=== PATIENT | male | born 1960 | race Caucasian/White ===

== ENCOUNTER → 2020-03-30 16:15 | Outpatient (CLI) | payer OTHER, SELFPAY ==
--- NOTE | 2020-03-30 16:22 | MRI_ITS ---
HISTORY: left rotator cuff tear, fall on left arm EXAMINATION: MR Shoulder W/O Contrast TECHNIQUE: Multiplanar and multisequence MR images of the left shoulder. IV Contrast dosage and agent: None. COMPARISON: None FINDINGS: BONE: Minimal marrow edema is present within the lateral aspect of the clavicle and the acromion at the acromioclavicular joint ACROMIOCLAVICULAR JOINT: Is mildly arthritic with spurring and edema SUBACROMIAL-SUBDELTOID SPACE: Minimal thin strip of fluid superficial to the rotator cuff extending into the subacromial space GLENOHUMERAL JOINT: Articular cartilage intact. Small joint effusion ROTATOR CUFF: There is perhaps some muscular tearing at the myotendinous junction of the subscapularis. There is no cuff muscle atrophy. LABRUM: Intact, limited evaluation on non-arthrographic exam. BICEPS TENDON: The long head of the biceps tendon is subluxed medially out of of the bicipital groove with loss of normal dark signal within the subscapularis the intra-articular portion of the long head of the biceps tendon is slightly edematous and thickened OTHER SOFT TISSUES: Fluid surrounds the long head of the biceps tendon in the bicipital groove where it returns to normal dark signal but is thickening possibly with a longitudinal split tear MRI/Upper Ext Joint Only(Routine) IMPRESSION: Subscapularis tearing. I'm not sure if this is a full-thickness or incomplete thickness tearing. It is not a complete tear. There is a shoulder effusion as well as fluid within the subacromial/subdeltoid bursa suggesting possible bursitis. Tendinosis to the long head of the biceps tendon with possible longitudinal split tear to the biceps tendon. at 3433 Reported and signed by: Ruddy Hartman MD Electronically Signed: Ruddy Hartman MD at 23:11 EDT Tel , Service support ,
--- NOTE | 2020-03-30 16:22 | MRI_ITS ---
HISTORY: rotator cuff tear right shoulder X 2 months EXAMINATION: MR Shoulder W/O Contrast TECHNIQUE: Multiplanar and multisequence MR images of the right shoulder. IV Contrast dosage and agent: None. COMPARISON: None. 133 images FINDINGS: BONE: Some edema is present within the lateral aspect of the right clavicle ACROMIOCLAVICULAR JOINT: Arthritic with hyperostosis and a trace amount of fluid SUBACROMIAL-SUBDELTOID SPACE: No bursal fluid. GLENOHUMERAL JOINT: Articular cartilage intact. No joint effusion. No rotator interval edema. ROTATOR CUFF: A tiny undersurface rim rent tear is present at the insertion of the anterior portion of the infraspinatus and another area there is a tiny undersurface incomplete thickness tear at the pedicle of the supraspinatus There is no cuff muscle atrophy. LABRUM: Intact, limited evaluation on non-arthrographic exam. BICEPS TENDON: The extra-articular biceps tendon is in the bicipital groove. The intra-articular biceps tendon is normal. OTHER SOFT TISSUES: Unremarkable. MRI/Upper Ext Joint Only(Routine) IMPRESSION: Acromioclavicular arthritis. Minimal tiny undersurface incomplete rim rent tears at the insertion of the supraspinatus and the infraspinatus. at 2205 Reported and signed by: Ruddy Hartman MD Electronically Signed: Ruddy Hartman MD at 22:04 EDT Tel , Service support ,
--- NOTE | 2020-03-30 16:58 | RAD_ITS ---
STUDY: X-RAY - ORBITS REASON FOR EXAM: Male, 59 years old. PRE MRI, HX OF METAL TO EYES TECHNIQUE: 2 view(s) of the orbits were obtained. COMPARISON: None. FINDINGS: Normal bilateral orbits without a metallic orbital foreign body. Normal visualized facial bones. Normal paranasal sinuses. The soft tissue structures are unremarkable. RAD/Orbits for Foreign Body IMPRESSION: No demonstrated metallic orbital foreign body. The patient is cleared for an MRI examination. Electronically Signed: Gilberto Velasquez MD at 17:13 EDT , Service support ,
== END ==
PROVIDERS: PCP Preventive Medicine Occupational Medicine; Referring Provider Chiropractor; Visit Provider Chiropractor
DX: M75.121 Complete rotator cuff tear or rupture of right shoulder, not specified as traumatic (principal); M75.122 Complete rotator cuff tear or rupture of left shoulder, not specified as traumatic
CPT/HCPCS: 70030; 73221

== ENCOUNTER 2020-08-29 16:00 | Outpatient (RCR) | payer OTHER, SELFPAY ==
--- NOTE | 2020-07-26 08:29 | HP.PTEVAL_ITS ---
Patient's Visit Information PERNELL CARDOZA is a 60 year old M referred to Physical Therapy by SAMSON JOHANSEN with a diagnosis of Chronic pain of B shoulders, shoulder weakness, suprascapular mononeuropath. Date of Evaluation: 07/25/20 Physical Therapist: Eloy Dimas, PT, Cert MDT, OCS - Visit Plan Frequency: 2x /Week Duration: 4 Weeks Plan: 2xs/week for 4 weeks. PT Intervention: B UE strengthening, Rotator cuff strengthening, periscapular strengthening, UE, AROM,postural ex'sand Modalities. - Subjective Patient 60 y/o male presents to physical therapy with bilateral shoulder pain . 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 Location of right [place] . When patient seen DR mata pinmikhail from ENG test affecting muscle. Patient has shoulder revealed RTC tear left but right shoulder was negative for tear. Possible RTC repair left shoulder. Patient has difficulty lifting [place] and impairs ADL's and housework tasks. Patient has some difficulty sleeping at night. Patient biltateral shoulder pain impairs function and housework tasks and jiob demnads. Patient symptoms affects QOL. No meds. VOCATION:[employer]. SOCIAL: - Pain Right Shoulder Pain Intensity (Out of 10): 3 Pain Intensity Range: 10 Left Shoulder Pain Intensity (Out of 10): 5 Comment: lifting - Objective POSTURE: mild foward posture rounded shoulder, mild thoracic kyphosis. PALPTION: Unremarkable on B shoulders. CERVICAL SPINE SCREEN: WNL, COMPRESSION/DISTRACTION NEGATIVE. OBSERVATION: Posterior delt and infraspinatus demonstrate mild atrophy. AROM: L flexion 140 degrees, abd 150 degrees, ER 85 degrees, IR L4. R flexion/abd severe compensation 60-70 degrees. PROM: WFL on affected side Right. REFLEXES: R C5 2/3, C6 3/3. L C5 2/3, C6 3/3. MMT: L subscap 4/5, infraspinatus 4/5, supraspinatus 4/5, deltoid 4-/5. R subscapularis 3-/5, supraspinatus 3-/5, infraspinatus 3-/5, bicep 3+/5, wrist flexors 4-/5, wrist ext 4/5. 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 # - Special Tests C/S Radiculapathy - Left Upper limb tension test: Negative C/S Radiculapathy - Right Upper limb tension test: Negative C/S Radiculapathy - Left Spurlings: Negative C/S Radiculapathy - Right Spurlings: Negative C/S Radiculapathy - Left Cervical distraction: Negative C/S Radiculapathy - Right Cervical distraction: Negative C/S Radiculapathy - Left Relief test: Negative C/S Radiculapathy - Right Relief test: Negative C/S Radiculapathy - Valsalva: Negative - Goals Goal 1:: Patient will demonstrate improved L UE strength to 4+/5 for improved functional strength and work related tasks. Goal Time Frame: 4-6 Weeks Goal 2:: Patient will demonstrate R shoulder flexion/abd to 100 degrees for improved functional mobility. Goal Time Frame: 4-6 Weeks Goal 3:: Patient will demonstrate independence with HEP. Goal Time Frame: 4-6 Weeks Goal 4:: Patient will demonstrate improved Quick Dash score by 5 or > points for improved QOL. Goal Time Frame: 4-6 Weeks Goal 5:: Patient will demonstrate improved R UE strength to 3+/5 for improved functional strength and work related tasks. Goal Time Frame: 4-6 Weeks - Rehabilitation Potential Physical Therapy Diagnosis: Patient is a 60 year old male presenting to the [facility] with bilateral shoulder pain, bilateral UE weakness, and limited AROM with severe compensation on R with possible brachial plexus ,and RTC weakness left. Patient has MRI showed RTC tear left ,right negative but ENG showed nerve invovlement with suprascapular nerve. Rehabilitation Potential: Fair - Anticipated Interventions Patient/Client Instruction: Educate patient on: Condition, Plan of Care For the Purpose of:: To decrease pain, To increase ROM, To improve muscle performance and motor function, To improve ability to perform ADL's, To increase tolerance to activity/condition/position, To improve performance and independence with ADL's, To improve ability of physical actions for home/community/work/leisure, To improve health of tissue, To decrease soft tissue restriction, To increase flexibility/ROM, To reduce risk of recurrence, To improve ability to perform tasks related to life management Therapeutic Exercise to Include: Strength training, Postural training, Flexibilty training, Active ROM, Scapular Strength/Stabilization Comment: RTC For the Purpose of:: To decrease pain, To increase ROM, To improve muscle performance and motor function, To improve ability to perform ADL's, To increase tolerance to activity/condition/position, To improve performance and independence with ADL's, To improve ability of physical actions for home/community/work/leisure, To improve health of tissue, To decrease soft tissue restriction, To increase flexibility/ROM, To assume or resume ADL's, To reduce risk of recurrence, To improve ability to perform tasks related to life management TENS: Yes IF ES: Yes Cryotherapy (ice pack, ice massage): Yes Thermo therapy (hot pack): Yes Ultrasound (thermal/non thermal): Yes For the Purpose of:: To decrease pain, To increase ROM, To improve health of tissue, To decrease soft tissue restriction Thank you for the opportunity to evaluate your patient. For Medicare and Medicare HMO plans, please review the plan of care and approve it. It will need to be FAXED BACK to us at [phone] for Medicare purposes. For Medicare only, by signing this I certify the plan of care. Please let me know if there are questions or concerns regarding this plan of care. Physician Signature: Date:
--- NOTE | 2021-01-11 11:56 | HP.PTDCSUM ---
It has been my pleasure to treat PERNELL CARDOZA referred by SAMSON JOHANSEN, with the diagnosis of Chronic pain of B shoulders, shoulder weakness, suprascapular mononeuropath for a total of 6 visit(s). Discharge Date: 08/29/20 Please see the following information for a summary of their discharge status. Subjective: Patient reports that he is doing well. Patient expresses he wants to make today his last day and work on his HEP independently. Right Shoulder Pain Intensity (Out of 10): 0 Left Shoulder Pain Intensity (Out of 10): 0 % Improvement: 65 Objective/Function: Patient tolerated all exercise this date with no increases in shoulder pain. Requires minimal cueing to ensure correct form and repetitions. Reports appropriate fatigue levels with each exercise. Demonstrated moderate difficulty with shoulder ADD on L. Updated HEP. R shoulder flexion 110 degrees, abd 100 degrees. L shoulder flexion 135, 130 degrees abd. UE MMT: L shoulder flexion 5/5, abd 4/5, biceps 5/5, elbow ext 5/5, IR 4+/5, ER 4+/5. R shoulder 5/5, abd 4/5, biceps 5/5, elbow ext 5/5, IR 4/5, ER 3+/5 Goal 1:: Patient will demonstrate improved L UE strength to 4+/5 for improved functional strength and work related tasks. Goal Progress: Progressing Goal 2:: Patient will demonstrate R shoulder flexion/abd to 100 degrees for improved functional mobility. Goal Progress: Progressing Goal 3:: Patient will demonstrate independence with HEP. Goal Progress: Goal Met Goal 4:: Patient will demonstrate improved Quick Dash score by 5 or > points for improved QOL. Goal Progress: Progressing Goal 5:: Patient will demonstrate improved R UE strength to 3+/5 for improved functional strength and work related tasks. Goal Progress: Progressing Plan: D/C to HEP. Discharge Comments: D/C to HEP. Patient demonstrates improvements with B shoulder AROM and UE MMT. If there are questions or concerns regarding this patient's physical therapy, please feel free to call me at [phone]. Thank you for the referral of this patient. Sincerely, Eloy Dimas, PT, Cert MDT, OCS
== END 2020-08-29 19:00 | disposition home or self-care (01) ==
LOC: PT 16:00
PROVIDERS: PCP Preventive Medicine Occupational Medicine
DX: G56.81 Other specified mononeuropathies of right upper limb (principal); M25.511 Pain in right shoulder; M25.512 Pain in left shoulder; G89.29 Other chronic pain
CPT/HCPCS: 97110; 97162

== ENCOUNTER → 2020-10-17 12:54 | Outpatient (CLI) | payer OTHER, SELFPAY ==
--- NOTE | 2020-10-17 14:23 | SP.MBSS_ITS ---
Modified Barium Swallow - Patient Information Study Date: 10/17/20 Study Time: 13:00 Direct Billable Minutes: 130 Total Minutes procedure & reportin Diagnosis: dysphagia Referring Physician: Duc Perea Reason for Referral: Dysphagia - intermittent difficulty swallowing solids per physician referral. Patient describes sensation of solids not going down / getting stuck right at the valve and points a few inches below the sternal notch to indicate location. Reports that this happens approximately 1x/month w/ most recent instance resulting in emesis. Medical History: bilateral shoulder pain; Patient denies hx of head/neck surgery, neurological dx, allergies, GERD, PNA w/in past 5 years Dentition: Natural Teeth Mental Status: WNL Respiratory Status: Oxygenating on Room Air - Penetration-Aspiration Scale Penetration-Aspiration Scale: OBJECTIVE ASSESSMENT OF SWALLOW FUNCTION (QUANTITATIVE ? PER TRIAL): PENETRATION / ASPIRATION SCALE (CHOUDHURY): 1 = does not enter airway 2 = enters airway/above vocal folds/ejected 3 = enters airway/above vocal folds/not ejected 4 = enters airway/contacts vocal folds/ejected 5 = enters airway/contacts vocal folds/not ejected 6 = enters airway/below vocal folds/ejected 7 = enters airway/below vocal folds/not ejected despite effort 8 = enters airway/below vocal folds/no effort - Penetration-Aspiration Scale Score Thin Liquid via teaspoon Result: 1= does not enter airway Thin Liquid via teaspoon Trial 2 Result: 1= does not enter airway Thin Liquid via small single sip from cup Result: 1= does not enter airway Thin Liquid via sequential sips from cup Result: 5= enters airways/contacts vocal folds/not ejected - *trace Pudding Result: 1= does not enter airway Pudding Trial 2 Result: 1= does not enter airway Cookie Result: 1= does not enter airway Thin Liquid via small single sip from cup Trial 2 Result: 1= does not enter airway Thin Liquid via small single sip from cup Chin tuck Result: 1= does not enter airway Pudding Chin tuck Result: 1= does not enter airway Thin Liquid via small single sip from cup Chin tuck Trial 2 Result: 1= does not enter airway - Oral Phase Labial Seal: No Labial Escape Tongue Control During Bolus Hold: Cohesive bolus between tongue to palatal seal Bolus Preparation/Mastication: Timely and efficient chewing and mashing Bolus Transport/Lingual Motion: Slowed tongue motion Oral Residue: Trace residue lining oral structures - Pharyngeal Phase Initiation of Pharyngeal Swallow: Bolus head in pyriforms - with teaspoon trial, improved bolus location upon swallow onset w/ sips via cup Soft Palate Elevation: No bolus between soft palate and pharyngeal wall Laryngeal Elevation: Comp. Superior move thyroid cart w/comp. apprx arytenoid cart-epig pet Anterior Hyoid Excursion: Complete anterior movement Epiglottic Movement: Partial inversion Laryngeal Vestibule Closure at Height of Swallow: Complete; no air/contrast in laryngeal vestibule - unable to maintain complete closure w/ sequential swallows, resulting in laryngeal vestibule penetration Pharyngeal Stripping Wave: Absent Pharyngoesophageal Segment Opening: Parital distension and partial duration; parital obstruction of flow - reduced PES distention and duration w/ pyriform residue d/t premature PES closure Tongue Base Retraction: Trace column of contrast between tongue base & post. pharyngeal wall Pharyngeal Residue: Collection of residue within or on pharyngeal structures - vallecular/pyriform residue d/t incomplete epiglottic inversion and absent pharyngeal contraction/stripping wave - Esophageal Phase Esophageal Clearance: Complete clearance - Treatment Strategies Effects of treatment strategies attemped:: chin tuck = minimally effective effortful swallow = somewhat effective multiple swallows = somewhat effective liquid wash = somewhat effective - Diagnosis/Impression Diagnosis: mild to moderate pharyngeal dysphagia Impression: This patient presents w/ mild to moderate pharyngeal dysphagia necessitating referral characterized by: * delayed pharyngeal swallow onset timing with teaspoon trials ; improved bolus location and swallow onset timing w/ sips via cup * adequate base of tongue retraction to the posterior pharyngeal wall * absent pharyngeal stripping wave * wide and somewhat asymmetric vallecular space and incomplete epiglottic inversion despite sufficient anterior hyoid movement and hyolaryngeal excursion * unable to maintain complete laryngeal vestibule closure w/ sequential swallows of thin liquid, resulting in laryngeal vestibule penetration 1x which contacted the vocal folds * significant residue accumulating/pooling w/in the vallecular and pyriform sinuses d/t incomplete epiglottic inversion and absent pharyngeal contraction/stripping wave * visible tissue/mass noted along the superior aspect of the posterior p haryngeal wall - recommend referral to ENT to further assess nasopharynx/oropharynx d/t possible structural abnormalities * reduced PES distention and duration w/ pyriform residue d/t premature PES closure * esophageal screening for clearance was unremarkable - Recommendations Diet: Regular Textures, Thin Liquids Compensatory Strategies: Small Bites, Small Sips, Multiple Swallows, Alternate bites/solids and sips/liquids Need for Skilled Speech Therapy Services: Yes Comment: Referral for skilled ST intervention is warranted - AFTER referral to ENT - to reinforce compensatory strategy recommendations and train/instruct w/ pharyngeal strengthening: epiglottic inversion, pharyngeal contraction, PES distention/duration. Consider ENT referral to assess nasopharynx/oropharynx d/t possible structural abnormalities - wide asymmetric vallecular space, incomplete epiglottic inversion despite WFL movement of structues which would impact inversion, absent pharyngeal stripping wave/pharyngeal contraction; noted what appears to be vis ible tissue/mass along the superior aspect of the posterior pharyngeal wall. Recommended Referrals: ENT Consult Education Completed: 1. Described result of evaluation., 2. Pt understands evaluation & agrees with goals and treatment plan. - Status Active ST Patient: Active - Contact Information [facility] Speech Therapy:: Isela Spring M.A., CCC-TOOLMAN [facility] [address] [place], [place] [id number] [email or web address]
== END ==
PROVIDERS: PCP Preventive Medicine Occupational Medicine; Referring Provider Preventive Medicine Occupational Medicine; Visit Provider Preventive Medicine Occupational Medicine
DX: R13.10 Dysphagia, unspecified (principal)
CPT/HCPCS: 74230; 92611

== ENCOUNTER → 2022-12-17 | Outpatient (CLI) | payer OTHER, SELFPAY ==
[2022-12-17 15:39] LABS: Absolute Lymphocyte Count 1.26 X10^3/uL (0.83-4.51); Absolute Neutrophil Count 4.4 X10^3/uL (2.0-7.7); Basophil# 0.05 X10^3/uL; Basophil% 0.8 % (0-1); Eosinophil# 0.25 X10^3/uL; Eosinophils% 3.9 % (0-5); Hematocrit 40.8 % (40-54); Hemoglobin 13.7 g/dL (13.0-16.5); Lymphocyte # 1.26 X10^3/ul (0.83-4.51); Lymphocyte % 19.4 % (19-41); Mean Corp Hgb Conc 33.6 g/dL (32-36); Mean Corpuscular Hgb 30.9 pg (27.0-32.0); Mean Corpuscular Volume 92.1 fL (80-94); Mean Platelet Vol. 8.5 fl (6.2-12.0); Monocyte# 0.49 X10^3/uL; Monocyte% 7.6 % (0-10); NRBC Flagged by Analyzer 0 % (0-5); Neutrophil # 4.42 X10^3/uL (2.7-7.7); Platelet Count 342 K/mm3 (150-450); RBC Distribution Width CV 12.9 % (11.6-14.6); RBC Distribution Width SD 43.8 fl (35.1-43.9); Red Blood Count 4.43 M/mm3 (4.6-6.2); White Blood Count 6.5 K/mm3 (4.4-11.0)
[2022-12-17 16:15] LABS: Erythrocyte Sedimentation Rate 3 mm/hr (0-20)
[2022-12-17 16:26] LABS: CRP < 2.90 mg/L (0.0-3.0); LDH 157 U/L (87-241)
[2022-12-19 13:08] LABS: Anti-Centromere B Ab <0.2 AI (0.0-0.9); Anti-Chromatin <0.2 AI (0.0-0.9); Anti-Jo <0.2 AI (0.0-0.9); Anti-Scleroderma-70 AB <0.2 AI (0.0-0.9); Anti-dsDNA Ab <1 IU/mL (0-9); RNP Ab <0.2 AI (0.0-0.9); SJOGREN'S Anti-SS-A test < 0.2 AI (0.0-0.9); SJOGREN'S Anti-SS-B test < 0.2 AI (0.0-0.9); Smith Ab <0.2 AI (0.0-0.9)
[2022-12-20 08:12] LABS: Endomysial Antibody IgA Negative (Negative); Immunoglobulin A 278 mg/dL (61-437); t-Transglutaminase IgA <2 U/mL (0-3)
[2022-12-23 03:06] LABS: Alpha-1-Globulins 0.2 g/dL (0.0-0.4); Alpha-2-Globulins 0.7 g/dL (0.4-1.0); Cytoplasmic Ab (C-ANCA) <1:20 titer (Neg:<1:20); Gamma Globulin 0.8 g/dL (0.4-1.8); Immunoglobulin A 268 mg/dL (61-437); Immunoglobulin E 162 IU/mL (6-495); Immunoglobulin G 889 mg/dL (603-1613); Immunoglobulin M 22 mg/dL (20-172); PROEL- TOTAL PROTEIN 6.8 g/dL (6.0-8.5); Perinuclear Ab (P-ANCA) <1:20 titer (Neg:<1:20)
== END | disposition home or self-care (01) ==
LOC: LAB 14:49
PROVIDERS: PCP Preventive Medicine Occupational Medicine; Referring Provider Internal Medicine Gastroenterology; Visit Provider Internal Medicine Gastroenterology
DX: R13.10 Dysphagia, unspecified (principal)
CPT/HCPCS: 36415; 82784; 82785; 83516; 83615; 84165; 85025; 85652; 86140; 86225; 86235; 86255; 86256; 86334

== ENCOUNTER 2023-04-02 05:24 | Day surgery (SDC) | payer OTHER, SELFPAY ==
[2023-04-02] VITALS (10 sets, daily range): BP systolic 64–127; BP diastolic 41–69; PULSE 60–81; RESP 14–16; TEMP 35.8–36.2; O2SAT 90–100; BMI 18.8
[2023-04-02] MEDS: Lactated Ringers 1,000 ML 15 ML IV (06:08)
--- NOTE | 2023-04-02 06:30 | EGD_PTH ---
PATIENT: PERNELL CARDOZA LOC: EN U#:[id number] AGE/SX: 62/M ROOM: RE04/02/[address]: Dr. Marvin Kim DO : 1960 BED: DIS: 04/02/2023 SPEC #: [id number] RECD: 04/02/23 12:08 STATUS: PRAVEEN IVONE #: [id number] VIJAYA: 04/02/23 06:[address]: Marvin Kim DEPT: SURGICAL PATHOLOGY RECD BY: Leona Olvera ENTERED: 04/02/23 12:44 SP TYPE: EGD BIOPSY OT DR: Dr. Duc Perea DO Tissues: A - Esophagus, NOS B - Transverse colon C - COLON BIOPSY Procedures: Special Stain Group II Surgery Specimen Level IV Alcian Blue/PAS (control) HEADER OPERATION: Colonoscopy, polypectomy, EGD ([facility]) with biopsy and dilatation PRE-OP DIAGNOSIS: Dysphagia, screening TISSUE SUBMITTED: A - Distal esophagus biopsy, B - Transverse colon polyp, C - Splenic flexure polyp MICROSCOPIC DIAGNOSIS A. Distal esophagus, biopsy: Gastroesophageal junctional mucosa with mild chronic inflammation. Focal changes of reflux. No evidence of goblet cell metaplasia. See comment. B. Transverse colon polyp, biopsy: Fragments of glandular mucosa with thermal artifact. See comment. C. Colonic polyp at splenic flexure, biopsy: Tubular adenoma. AM:mana 04/03/2023 COMMENT A. Alcian blue/PAS stain with matched control supports the above diagnosis. B. The lesion may represent an inflammatory polyp/hyperplastic polyp. Clinical correlation is suggested. MICROSCOPIC DESCRIPTION Slides are reviewed. GROSS DESCRIPTION A - Received in fixative is one container labeled with the patient's name and designated distal esophagus biopsy. The specimen consists of multiple irregular fragments of light teran soft tissue that in aggregate measure 1.5 x 0.3 x 0.1 cm. The specimen is totally submitted in one cassette. B - Received in fixative is one container labeled with the patient's name and designated transverse colon polyp. The specimen consists of multiple irregular fragments of light teran soft tissue mixed with fecal material that in aggregate measure 1.0 x 0.3 x 0.1 cm. The specimen is totally submitted in one cassette. C - Received in fixative is one container labeled with the patient's name and designated splenic flexure polyp. The specimen consists of a teran-pink polyp measuring 1.2 x 0.5 x0.3 cm. The specimen is totally submitted in one cassette. / SJ:rg 04/02/2023 TC:3 CPT: 17488 x3, [id number]
--- NOTE | 2023-04-02 06:35 | PCM.HP.BLA ---
History and Physical Date of Admission: 04/02/23 62 M who presents to the office today for PCP OV as f/u for HTN hyperlipidemia, DMII, depression noting difficulty with dysphagia. ? Barium Swallow 10.17.20 mild/moderate pharyngeal dysphagia; enters airway with sequential sips only. ? Biochemical CBC, CMP, LFT, triglycerides, cholesterol, PSA without pertinent abnormality. *BGI established 12.17.22 with dysphagia; no difficulty initiated swallowing but feels that food does not pass into stomach as normal with most PO intake, particularly with drier take off tender foods with increase of frequency of late; will sometimes regurgitate the food, no emergent episodes. Denies EGD and colonoscopy history. ROS Const Constitutional: No anorexia, fatigue, fever(s), weight change or sleep problems Eyes Eyes: No change in vision ENT ENT: No abnormal hearing, difficulty swallowing, mouth lesions, tongue swelling or throat swelling Resp Respiratory: No cough or shortness of breath Cardio Cardiology: No chest pain at rest, chest pain with exertion, shortness of breath or dyspnea on exertion Gastro GI: No difficulty swallowing Genitourinary Male: No difficulty urinating or burning urination Musc Musculoskeletal: No joint pain, joint swelling, muscle weakness or decreased muscle mass Skin Skin: No hair loss in leg, yellowing of the eye, itchy eyes, rash, skin ulcer or skin swelling Neuro Neurology: No abnormal hearing, abnormal movements, confusion, unsteady gait/balance or memory loss Psych Psychiatric: No anxiety, No confusion and No memory loss Endo Endocrine: No fatigue or weight change Aller/Imm Allergy/Immunologic: No itchy eyes, throat swelling or tongue swelling Rakesh/Lymp Hematologic/Lymphatic: No easy bleeding, easy bruising or enlarged lymph nodes Exam Const General: cooperative and comfortable Nutritional Appearance: average body habitus and well nourished HENMT Head: normal to inspection Ears: hearing grossly normal bilaterally Nose: external nose normal Face and sinus: normal facial exam Mouth: oral mucosae normal Throat: posterior oropharynx normal Eyes General: appearance normal, both eyes and all related structures Neck Neck: normal visual inspection Chest Chest palpation & inspection: normal inspection of the chest and normal palpation of entire chest wall Resp Effort & Inspection: normal respiratory effort Auscultation: Bilateral: Clear to Auscultation Cardio Palpation: normal PMI Rate: regular rate Rhythm: regular rhythm GI Inspection: normal to inspection Auscultation: normal bowel sounds Percussion: normal to percussion Palpation: no hepatosplenomegaly Skin General: no rashes or lesions noted Neuro General: patient alert Extrem General: normal to inspection Psych Affect: normal affect Quality Reporting Tobacco Screening ([facility] 138) Smoking Status: Never smoker Assessment and Plan Assessment and Plan (1) Dysphagia: Status: Chronic Plan: The differential diagnosis for his esophageal dysphagia does include a Schatzki's ring, esophageal web, esophageal stricture, erosive esophagitis, eosinophilic esophagitis. He will undergo an upper endoscopy evaluate his upper GI tract. He was explained alternatives, risk, benefits include not withstanding bleeding, infection, sepsis, perforation, need for emergent surgery . He will have an ASA of 2. (2) Encounter for screening colonoscopy: Status: Acute Plan: He has never had a colonoscopy in the past. He has no family history of colon cancer. He will undergo screening colonoscopy. He was explained alternatives, risk, benefits include not withstanding bleeding, infection, sepsis, perforation, need for emergent and . He will have an ASA of 2. Orders: Orders CRP Today R13.10 - Dysphagia, unspecified LDH Today R13.10 - Dysphagia, unspecified Erythrocyte Sed Rate Today R13.10 - Dysphagia, unspecified NAYANA Comprehensive Panel Today R13.10 - Dysphagia, unspecified ANCA Today R13.10 - Dysphagia, unspecified Celiac Disease Profile Today R13.10 - Dysphagia, unspecified Immunoglobulins G/A/M/E Today R13.10 - Dysphagia, unspecified CJ + Protein Elect, Serum Today R13.10 - Dysphagia, unspecified CBC W/Diff, Automated Today R13.10 - Dysphagia, unspecified I have examined the patient and the H&P has been reviewed. There are no clinical changes since date of exam.
--- NOTE | 2023-04-02 07:21 | OP.COLON_ITS ---
Patient Name: Aurelio Rodriguez Procedure Date: 04/02/2023 6:48 AM Date of : 1960 Age: 62 Procedure: Colonoscopy Indications: Screening for colorectal malignant neoplasm Providers: DO Fausto Garcia MD: Duc Perea Medicines: Monitored Anesthesia Care Patient Profile: This is a 62 year old male. Refer to note in patient chart for documentation of history and physical. Last Colonoscopy: date unknown. Unable to locate last colonoscopy report. Complications: No immediate complications. Procedure: Pre-Anesthesia Assessment: - Prior to the procedure, a History and Physical was performed, and patient medications and allergies were reviewed. The risks and benefits of the procedure and the sedation options and risks were discussed with the patient. All questions were answered and informed consent was obtained. Patient identification and proposed procedure were verified by the physician. Mental Status Examination: normal. Prophylactic Antibiotics: The patient does not require prophylactic antibiotics. Prior Anticoagulants: The patient has taken no anticoagulant or antiplatelet agents. After reviewing the risks and benefits, the patient was deemed in satisfactory condition to undergo the procedure. The anesthesia plan was to use monitored anesthesia care (MAC). Immediately prior to administration of medications, the patient was re-assessed for adequacy to receive sedatives. The heart rate, respiratory rate, oxygen saturations, blood pressure, adequacy of pulmonary ventilation, and response to care were monitored throughout the procedure. The physical status of the patient was re-assessed after the procedure. After I obtained informed consent, the scope was passed under direct vision. Throughout the procedure, the patient's blood pressure, pulse, and oxygen saturations were monitored continuously. The Colonoscope was introduced through the anus and advanced to the cecum, identified by appendiceal orifice and ileocecal valve. The colonoscopy was performed without difficulty. The patient tolerated the procedure well. The quality of the bowel preparation was fair. The ileocecal valve, appendiceal orifice, and rectum were photographed. Scope In: 6:49:52 AM Scope Withdrawal Time 0 hours 12 minutes 36 seconds Scope Out: 7:08:37 AM Total Procedure Duration Time 0 hours 18 minutes 45 seconds Findings: The perianal and digital rectal examinations were normal. Scattered small and large-mouthed diverticula were found in the recto-sigmoid colon, sigmoid colon and descending colon. A moderate amount of stool was found in the rectum, in the recto-sigmoid colon, in the sigmoid colon, in the transverse colon and in the ascending colon. Lavage of the area was performed, resulting in incomplete clearance with fair visualization. Three sessile polyps were found in the splenic flexure and transverse colon. The polyps were 1 to 2 mm in size. These polyps were removed with a hot snare. Resection and retrieval were complete. Verification of patient identification for the specimen was done. Estimated blood loss was minimal. Impression: - Preparation of the colon was fair. - Diverticulosis in the recto-sigmoid colon, in the sigmoid colon and in the descending colon. - Stool in the rectum, in the recto-sigmoid colon, in the sigmoid colon, in the transverse colon and in the ascending colon. - Three 1 to 2 mm polyps at the splenic flexure and in the transverse colon, removed with a hot snare. Resected and retrieved. Recommendation: - Repeat colonoscopy in 3 years for surveillance. - Continue present medications. Procedure Code(s): --- Professional --- 34941, Colonoscopy, flexible; with removal of tumor(s), polyp(s), or other lesion(s) by snare technique CPT copyright 2021 [employer]. All rights reserved. The codes documented in this report are preliminary and upon chiropractic neurologist review may be revised to meet current compliance requirements. Marvin Kim DO 04/02/2023 7:20:24 AM This report has been signed electronically. Number of Addenda: 0 Note Initiated On: 04/02/2023 6:48 AM
--- NOTE | 2023-04-02 07:21 | OP.CCLET_ITS ---
04/02/2023 Duc Perea [address] [place] [address] Re : Colonoscopy procedure for Aurelio Rodriguez Dear Dr. Perea This procedure was performed on Sunday, April 02, 2023. My impressions and recommendations are as follows: Impressions : - Preparation of the colon was fair. - Diverticulosis in the recto-sigmoid colon, in the sigmoid colon and in the descending colon. - Stool in the rectum, in the recto-sigmoid colon, in the sigmoid colon, in the transverse colon and in the ascending colon. - Three 1 to 2 mm polyps at the splenic flexure and in the transverse colon, removed with a hot snare. Resected and retrieved. Recommendations : - Repeat colonoscopy in 3 years for surveillance. - Continue present medications. My findings are described in the full procedure note, which is enclosed. If I can be of further assistance, please feel free to contact me at . Sincerely, Marvin Kim, 04/02/2023 7:20:24 AM This report has been signed electronically.
--- NOTE | 2023-04-02 08:01 | OP.EGD_ITS ---
Patient Name: Aurelio Rodriguez Procedure Date: 04/02/2023 6:21 AM Date of : 1960 Age: 62 Procedure: Upper GI endoscopy Indications: Dysphagia, Heartburn Providers: DO Fausto Garcia MD: Duc Perea Medicines: Monitored Anesthesia Care Patient Profile: This is a 62 year old male. Refer to note in patient chart for documentation of history and physical. Patient has symptoms of acute dysphagia. Complications: No immediate complications. Procedure: Pre-Anesthesia Assessment: - Prior to the procedure, a History and Physical was performed, and patient medications and allergies were reviewed. The patient is competent. The risks and benefits of the procedure and the sedation options and risks were discussed with the patient. All questions were answered and informed consent was obtained. Patient identification and proposed procedure were verified by the physician. Mental Status Examination: normal. Airway Examination: normal oropharyngeal airway and neck mobility. Prophylactic Antibiotics: The patient does not require prophylactic antibiotics. Prior Anticoagulants: The patient has taken no anticoagulant or antiplatelet agents except for NSAID medication. ASA Grade Assessment: II - A patient with mild systemic disease. After reviewing the risks and benefits, the patient was deemed in satisfactory condition to undergo the procedure. The anesthesia plan was to use monitored anesthesia care (MAC). Immediately prior to administration of medications, the patient was re-assessed for adequacy to receive sedatives. The heart rate, respiratory rate, oxygen saturations, blood pressure, adequacy of pulmonary ventilation, and response to care were monitored throughout the procedure. The physical status of the patient was re-assessed after the procedure. After obtaining informed consent, the endoscope was passed under direct vision. Throughout the procedure, the patient's blood pressure, pulse, and oxygen saturations were monitored continuously. The Colonoscope was introduced through the mouth, and advanced to the second part of duodenum. The upper GI endoscopy was accomplished without difficulty. The patient tolerated the procedure well. Scope In: 6:40:09 AM Scope Out: 6:48:20 AM Total Procedure Duration Time 0 hours 8 minutes 11 seconds Findings: LA Grade B (one or more mucosal breaks greater than 5 mm, not extending between the tops of two mucosal folds) esophagitis with no bleeding was found 36 to 38 cm from the incisors. Biopsies were taken with a cold forceps for histology. Verification of patient identification for the specimen was done. A severe Schatzki ring was found in the lower third of the esophagus. A guidewire was placed and the scope was withdrawn. Dilation was performed with a Savary dilator with no resistance at 54 Fr. The dilation site was examined and showed moderate mucosal disruption. A medium-sized hiatal hernia was present. The first portion of the duodenum was normal. Impression: - LA Grade B reflux esophagitis with no bleeding. Biopsied. - Severe Schatzki ring. Dilated. - Medium-sized hiatal hernia. - Normal first portion of the duodenum. Recommendation: - Discharge patient to home. - Resume previous diet. - Continue present medications. - Await pathology results. - Repeat upper endoscopy for surveillance. - Use Protonix (pantoprazole) 40 mg PO BID for 3 months. Procedure Code(s): --- Professional --- 91098, Esophagogastroduodenoscopy, flexible, transoral; with insertion of guide wire followed by passage of dilator(s) through esophagus over guide wire 12626, 59,51, Esophagogastroduodenoscopy, flexible, transoral; with biopsy, single or multiple CPT copyright 2021 [employer]. All rights reserved. The codes documented in this report are preliminary and upon pneumatic drum sander review may be revised to meet current compliance requirements. Marvin Kim DO 04/02/2023 8:01:32 AM This report has been signed electronically. Number of Addenda: 0 Note Initiated On: 04/02/2023 6:21 AM
--- NOTE | 2023-04-02 08:02 | OP.CCLET_ITS ---
04/02/2023 Duc Perea [address] [place] [address] Re : Upper GI endoscopy procedure for Aurelio Rodriguez Dear Dr. Perea This procedure was performed on Sunday, April 02, 2023. My impressions and recommendations are as follows: Impressions : - LA Grade B reflux esophagitis with no bleeding. Biopsied. - Severe Schatzki ring. Dilated. - Medium-sized hiatal hernia. - Normal first portion of the duodenum. Recommendations : - Discharge patient to home. - Resume previous diet. - Continue present medications. - Await pathology results. - Repeat upper endoscopy for surveillance. - Use Protonix (pantoprazole) 40 mg PO BID for 3 months. My findings are described in the full procedure note, which is enclosed. If I can be of further assistance, please feel free to contact me at . Sincerely, Marvin Friend, 04/02/2023 8:01:32 AM This report has been signed electronically.
[2023-04-02 08:36] LABS: Bedside Glucose 171 mg/dL (74-106)
== END 2023-04-02 08:18 | disposition home or self-care (01) ==
LOC: EN 05:25 → AC 05:26
PROVIDERS: PCP Preventive Medicine Occupational Medicine; Referring Provider Preventive Medicine Occupational Medicine; Visit Provider Internal Medicine Gastroenterology
PROC: 0DJD8ZZ Inspection of Lower Intestinal Tract, Via Natural or Artificial Opening Endoscopic (ICD-10-PCS; CPT 45378; principal; 2023-04-02 06:25)
DX: Z12.11 Encounter for screening for malignant neoplasm of colon (principal); E11.9 Type 2 diabetes mellitus without complications; R13.10 Dysphagia, unspecified; K57.30 Diverticulosis of large intestine without perforation or abscess without bleeding; K63.5 Polyp of colon; K44.9 Diaphragmatic hernia without obstruction or gangrene; K21.00 Gastro-esophageal reflux disease with esophagitis, without bleeding; I10 Essential (primary) hypertension; E78.5 Hyperlipidemia, unspecified; F32.A Depression, unspecified
CPT/HCPCS: 43248; 45385; 43239; 82962; 88305; 88313; C1769

== ENCOUNTER 2023-04-29 14:38 | Outpatient (CLI) | payer OTHER, SELFPAY ==
[2023-04-29 15:11] LABS: Hematocrit 39.6 % (40-54); Hemoglobin 12.6 g/dL (13.0-16.5); Mean Corp Hgb Conc 31.8 g/dL (32-36); Mean Corpuscular Hgb 28.8 pg (27.0-32.0); Mean Corpuscular Volume 90.6 fL (80-94); Mean Platelet Vol. 8.6 fl (6.2-12.0); Platelet Count 323 K/mm3 (150-450); RBC Distribution Width CV 12.8 % (11.6-14.6); RBC Distribution Width SD 42.4 fl (35.1-43.9); Red Blood Count 4.37 M/mm3 (4.6-6.2); White Blood Count 8.3 K/mm3 (4.4-11.0)
[2023-04-29 15:27] LABS: Erythrocyte Sedimentation Rate 24 mm/hr (0-20)
[2023-04-29 16:26] LABS: ALB/GLOB Ratio 0.8 RATIO (0.9-2.4); AST(SGOT) 7 U/L (15-37); Alanine Aminotransfer ALT/SGPT 8 U/L (16-61); Albumin, Serum 3.3 g/dL (3.2-5.0); Alkaline Phosphatase 80 U/L (45-117); Anion Gap 7 (5-15); BUN 20 mg/dL (7-18); BUN/Creat Ratio 17.1 RATIO (10-20); CRP < 2.90 mg/L (0.0-3.0); Calcium,Total 9.3 mg/dL (8.5-10.1); Chloride 102 mmol/L (98-107); Creatinine, Serum 1.17 mg/dL (0.70-1.30); EST Glomerular Filtration Rate 67 mL/min (>60); Est Glom Filt Rate - Afr Amer 81 mL/min (>60); Globulin 4.1 g/dL (2.2-4.2); Glucose 317 mg/dL (74-106); Potassium 4.1 mmol/L (3.5-5.1); Protein, Total 7.4 g/dL (6.4-8.2); Sodium Level 136 mmol/L (136-145)
[2023-04-29 22:59] LABS: Xtra Tube EP Lab EXTRA TUBE
== END 2023-04-29 14:39 | disposition home or self-care (01) ==
LOC: MEDOUTP 14:40
PROVIDERS: PCP Preventive Medicine Occupational Medicine; Referring Provider Internal Medicine Infectious Disease; Visit Provider Internal Medicine Infectious Disease
DX: M86.8X8 Other osteomyelitis, other site (principal); M71.58 Other bursitis, not elsewhere classified, other site
CPT/HCPCS: 36592; 80053; 85027; 85652; 86140; A4216

== ENCOUNTER 2023-05-06 15:21 | Outpatient (CLI) | payer OTHER, SELFPAY ==
[2023-05-06 15:40] LABS: Hematocrit 37.8 % (40-54); Hemoglobin 12.2 g/dL (13.0-16.5); Mean Corp Hgb Conc 32.3 g/dL (32-36); Mean Corpuscular Hgb 29.3 pg (27.0-32.0); Mean Corpuscular Volume 90.6 fL (80-94); Mean Platelet Vol. 8.6 fl (6.2-12.0); Platelet Count 356 K/mm3 (150-450); RBC Distribution Width CV 13.2 % (11.6-14.6); RBC Distribution Width SD 43.1 fl (35.1-43.9); Red Blood Count 4.17 M/mm3 (4.6-6.2); White Blood Count 6.6 K/mm3 (4.4-11.0)
[2023-05-06 15:49] LABS: Erythrocyte Sedimentation Rate 13 mm/hr (0-20)
[2023-05-06 16:00] LABS: AST(SGOT) 10 U/L (15-37); Alanine Aminotransfer ALT/SGPT 8 U/L (16-61); Albumin, Serum 3.5 g/dL (3.2-5.0); Alkaline Phosphatase 68 U/L (45-117); Anion Gap 4 (5-15); BUN 23 mg/dL (7-18); BUN/Creat Ratio 20.5 RATIO (10-20); CRP < 2.90 mg/L (0.0-3.0); Calcium,Total 8.9 mg/dL (8.5-10.1); Chloride 104 mmol/L (98-107); Creatinine, Serum 1.12 mg/dL (0.70-1.30); EST Glomerular Filtration Rate 70 mL/min (>60); Est Glom Filt Rate - Afr Amer 85 mL/min (>60); Globulin 3.6 g/dL (2.2-4.2); Glucose 185 mg/dL (74-106); Potassium 4.5 mmol/L (3.5-5.1); Protein, Total 7.1 g/dL (6.4-8.2); Sodium Level 137 mmol/L (136-145)
== END 2023-05-06 15:22 | disposition home or self-care (01) ==
LOC: MEDOUTP 15:21
PROVIDERS: PCP Preventive Medicine Occupational Medicine; Referring Provider Internal Medicine Infectious Disease; Visit Provider Internal Medicine Infectious Disease
DX: M86.9 Osteomyelitis, unspecified (principal); M71.10 Other infective bursitis, unspecified site
CPT/HCPCS: 36592; 80053; 85027; 85652; 86140; A4216

== ENCOUNTER 2023-05-13 15:12 | Outpatient (CLI) | payer OTHER, SELFPAY ==
[2023-05-13 15:48] LABS: Hematocrit 37.7 % (40-54); Hemoglobin 12.2 g/dL (13.0-16.5); Mean Corp Hgb Conc 32.4 g/dL (32-36); Mean Corpuscular Hgb 29.2 pg (27.0-32.0); Mean Corpuscular Volume 90.2 fL (80-94); Mean Platelet Vol. 8.7 fl (6.2-12.0); POSITIVE COUNT YES; Platelet Count 300 K/mm3 (150-450); RBC Distribution Width CV 13.2 % (11.6-14.6); RBC Distribution Width SD 43.2 fl (35.1-43.9); Red Blood Count 4.18 M/mm3 (4.6-6.2)
[2023-05-13 15:54] LABS: Scan Indicated on CBC? Y/N NO
[2023-05-13 16:22] LABS: AST(SGOT) 9 U/L (15-37); Alanine Aminotransfer ALT/SGPT < 6 U/L (16-61); Albumin, Serum 3.4 g/dL (3.2-5.0); Alkaline Phosphatase 68 U/L (45-117); Anion Gap 5 (5-15); BUN 24 mg/dL (7-18); BUN/Creat Ratio 21.2 RATIO (10-20); CRP 3.38 mg/L (0.0-3.0); Calcium,Total 8.8 mg/dL (8.5-10.1); Chloride 101 mmol/L (98-107); Creatinine, Serum 1.13 mg/dL (0.70-1.30); EST Glomerular Filtration Rate 69 mL/min (>60); Est Glom Filt Rate - Afr Amer 84 mL/min (>60); Globulin 3.5 g/dL (2.2-4.2); Glucose 214 mg/dL (74-106); Potassium 4.3 mmol/L (3.5-5.1); Protein, Total 6.9 g/dL (6.4-8.2); Sodium Level 134 mmol/L (136-145)
[2023-05-13 16:25] LABS: Erythrocyte Sedimentation Rate 16 mm/hr (0-20)
[2023-05-13 23:46] LABS: Xtra Tube EP Lab EXTRA TUBE
[2023-05-15 09:54] LABS: Pathologist Review Reviewed
== END 2023-05-13 15:13 | disposition home or self-care (01) ==
LOC: MEDOUTP 15:12
PROVIDERS: PCP Preventive Medicine Occupational Medicine; Referring Provider Internal Medicine Infectious Disease; Visit Provider Internal Medicine Infectious Disease
DX: M86.8X2 Other osteomyelitis, upper arm (principal)
CPT/HCPCS: 36415; 36592; 80053; 85027; 85652; 86140; A4216

== ENCOUNTER 2023-05-16 14:54 | Outpatient (CLI) | payer OTHER, SELFPAY | END 2023-05-16 14:55 | disposition home or self-care (01) | LOC: MEDOUTP 14:55 | PROVIDERS: PCP Preventive Medicine Occupational Medicine; Referring Provider Internal Medicine Infectious Disease; Visit Provider Internal Medicine Infectious Disease | DX: Z00.00 Encounter for general adult medical examination without abnormal findings (principal) ==

== ENCOUNTER → 2024-04-07 | Outpatient (CLI) | payer OTHER, SELFPAY ==
[2024-04-07 17:07] LABS: Absolute Lymphocyte Count 0.97 X10^3/uL (0.83-4.51); Absolute Neutrophil Count 3.7 X10^3/uL (2.0-7.7); Basophil# 0.07 X10^3/uL; Basophil% 1.2 % (0-1); Eosinophil# 0.27 X10^3/uL; Eosinophils% 4.8 % (0-5); Hematocrit 42.1 % (40-54); Hemoglobin 13.7 g/dL (13.0-16.5); Lymphocyte # 0.97 X10^3/ul (0.83-4.51); Lymphocyte % 17.3 % (19-41); Mean Corp Hgb Conc 32.5 g/dL (32-36); Mean Corpuscular Hgb 28.7 pg (27.0-32.0); Mean Corpuscular Volume 88.1 fL (80-94); Mean Platelet Vol. 8.8 fl (6.2-12.0); Monocyte# 0.58 X10^3/uL; Monocyte% 10.3 % (0-10); NRBC Flagged by Analyzer 0 % (0-5); Neutrophil % 65.9 % (47-70); Platelet Count 318 K/mm3 (150-450); RBC Distribution Width CV 13.2 % (11.6-14.6); RBC Distribution Width SD 43.1 fl (35.1-43.9); Red Blood Count 4.78 M/mm3 (4.6-6.2); White Blood Count 5.6 K/mm3 (4.4-11.0)
[2024-04-07 17:31] LABS: ALB/GLOB Ratio 1.2 RATIO (0.9-2.4); AST(SGOT) 14 U/L (15-37); Alanine Aminotransfer ALT/SGPT 14 U/L (16-61); Albumin, Serum 3.9 g/dL (3.2-5.0); Alkaline Phosphatase 55 U/L (45-117); Anion Gap 5 (5-15); BUN 24 mg/dL (7-18); BUN/Creat Ratio 19.2 RATIO (10-20); Calcium,Total 9.5 mg/dL (8.5-10.1); Chloride 106 mmol/L (98-107); Creatinine, Serum 1.25 mg/dL (0.70-1.30); EST Glomerular Filtration Rate 62 mL/min (>60); Est Glom Filt Rate - Afr Amer 75 mL/min (>60); Globulin 3.3 g/dL (2.2-4.2); Glucose 94 mg/dL (74-106); Potassium 4.3 mmol/L (3.5-5.1); Protein, Total 7.2 g/dL (6.4-8.2); Sodium Level 137 mmol/L (136-145)
[2024-04-07 17:35] LABS: Hemoglobin A1c 6.4 % (3.8-5.6)
== END | disposition home or self-care (01) ==
PROVIDERS: PCP Preventive Medicine Occupational Medicine
DX: R13.19 Other dysphagia (principal)
CPT/HCPCS: 36415; 80053; 83036; 85025

== ENCOUNTER 2024-05-05 05:48 | Day surgery (SDC) | payer OTHER, SELFPAY ==
[2024-05-05] VITALS (8 sets, daily range): BP systolic 102–126; BP diastolic 58–74; PULSE 72–81; RESP 16; TEMP 36.1–36.2; O2SAT 93–100; BMI 21.8
--- OUTSIDE RECORDS SUMMARY | 2024-05-05 05:51 | XMS RPT_ITS | CCD ---
Author Organization [facility] Care Team Providers Care Medical Records Tech Name Role Phone Taya Perea Primary Care Provider [phone] TAYA PEREA Primary Care Unavailable HERNESTO GALLAGHER Attending Unavailable BETSY VILLAFUERTE Referring Unavailable TAYA PEREA DO Primary Care Physician [phone] BETSY VILLAFUERTE Admitting Unavailable BETSY VILLAFUERTE Attending Unavailable TAYA PEREA Primary Care Unavailable TOÑITO LEACH Unavailable TAYA PEREA DO Attending Unavailable TAYA PEREA DO Primary Care Unavailable BETSY VILLAFUERTE DO Attending Unavailable TAYA PEREA DO Primary Care Unavailable TAYA PEREA DO Attending Unavailable TAYA PEREA DO Primary Care Unavailable TAYA PEREA DO Attending Unavailable TAYA PEREA DO Primary Care Unavailable TAYA PEREA DO Attending Unavailable TAYA PEREA DO Primary Care Unavailable TAYA PEREA DO Attending Unavailable TAYA PEREA DO Primary Care Unavailable Allergies Allergy Classification Reported Allergen(s) Allergy Type Date of Onset Reaction(s) Facility (5 sources) Erythromycin; Translations: [erythromycin] Drug Allergy 07-15-2020 Other: See Comments [facility] [place] (2 sources) Mineral Oil / Petrolatum; Translations: [ocular lubricant] Drug Allergy [facility] Medications Current Medications Medication Drug Class(es) Dates Sig (Normalized) Sig (Original) aspirin 81 mg oral tablet (4 sources) Platelet Aggregation Inhibitor, Nonsteroidal Anti-inflammatory Drug Start: 04-15-2015 take 1 dose by mouth once daily aspirin Dose : 81 mg =, Oral, qDay Start Date: 04/15/15 Status: Ordered take 1 tablet by mouth once sil y aspirin, enteric coated (ASPIRIN, ENTERIC COATED) 81 mg EC tablet Take 81 mg by mouth once daily. 0 Active Comment on above: Take 81 mg by mouth once daily. 24 hr buPROPion hydrochloride 150 mg extended release oral tablet (2 sources) Aminoketone Start: 03-19-20 take 1 tablet by mouth every hour, then take 1 tablet by mouth every twenty-four hours buPROPion 150 mg/24 hours (XL) oral tablet, extended release Dose : 150 mg = 1 tab(s), Oral, q24h, # 90 tab(s), 3 Refill(s), Pharmacy: [facility] #[id number], Major depression, single episode, 179, cm, 03/19/23 16:24:00 EDT, Height, kg, 03/19/23 16:24:00 EDT, Dosing Weight Start Date: 03/19/23 Status: Ordered fluticasone propionate 0.05 mg/actuat metered dose nasal spray (2 sources) Corticosteroid Start: 04-13-20 take 1 dose nasal route once daily in the morning Flonase 50 mcg/inh nasal spray Dose = 2 spray(s), Nostril, each, qAM, 0 Refill(s) Start Date: 04/13/19 Status: Ordered lisinopril 10 mg oral tablet (4 sources) Angiotensin Converting Enzyme Inhibitor Start: 02-22-20 lisinopril 10 mg oral tablet Dose : 10 mg = 1 tab(s), Oral, qDay, # 90 tab(s), 3 Refill(s), Pharmacy: [facility] #[id number], 181.5, cm, 09/18/22 16:27:00 EDT, Height, kg, 09/18/22 16:27:00 EDT, Dosing Weight Start Date: 02/21/23 Status: Ordered Start: 05-16-2020 take 1 tablet by benedicto th once daily lisinopril (ZESTRIL, PRINIVIL) 10 mg tablet Take 10 mg by mouth once daily. 0 05/16/2020 Active Comment on above: Take 10 mg by mouth once daily. metFORMIN hydrochloride 1000 mg oral tablet (4 sources) Biguanide Start: 03-12-2023 metFORMIN 1000 mg oral tablet (IR) Dose : 1,000 mg = 1 tab(s), Oral, BIDM, # 180 tab(s), 3 Refill(s), Pharmacy: [facility] #[id number], Diabetes, 181.5, cm, 09/18/22 16:27:00 EDT, Height, kg, 09/18/22 16:27:00 EDT, Dosing Weight Start Date: 03/12/23 Status: Ordered Start: 04-28-2020 take 1 tablet by benedicto th twice daily at mealtime metFORMIN (GLUCOPHAGE) 1,000 mg tablet Take 1,000 mg by mouth twice daily with meals. 0 04/28/2020 Active Comment on above: Take 1,000 mg by benedicto th twice daily with meals. pioglitazone 30 mg oral tablet (4 sources) Peroxisome Proliferator Receptor alpha Agonist, Peroxisome Proliferator Receptor gamma Agonist, Thiazolidinedione Start: 03-19-2023 pioglitazone 30 mg oral tablet Dose : 30 mg = 1 tab(s), Oral, Daily, # 90 tab(s), 3 Refill(s), Pharmacy: [facility] #[id number], Diabetes, 179, cm, 03/19/23 16:24:00 EDT, Height, kg, 03/19/23 16:24:00 EDT, Dosing Weight Start Date: 03/19/23 Status: Ordered Start: 07-07-2020 take 1 tablet by benedicto th once daily pioglitazone (ACTOS) 30 mg tablet Take 30 mg by mouth once daily. 0 07/07/2020 Active Comment on above: Take 30 mg by mouth once daily. semaglutide 7 mg oral tablet (2 sources) Start: 03-19-2023 Rybelsus 7 mg oral tablet Dose : 7 mg = 1 tab(s), Oral, qDay, take at least 30 minutes before first food, beverage, or other oral meds, # 90 tab(s), 3 Refill(s), Pharmacy: [facility] #[id number], Diabetes, 179, cm, 03/19/23 16:24:00 EDT, Height, kg, 03/19/23 16:24:00 EDT, Dosing Weight Start Date: 03/19/23 Status: Ordered Completed/Discontinued Medications Medication Drug Class(es) Dates Sig (Normalized) Sig (Original) cetirizine hydrochloride 10 mg oral tablet (2 sources) Histamine-1 Receptor Antagonist take 1 tablet by mouth once daily cetirizine (ZYRTEC) 10 mg tablet Take 10 mg by mouth once daily. 0 Active Comment on above: Take 10 mg by mouth once daily. 0.65 ml exenatide 3.08 mg/ml pen injector (2 sources) GLP-1 Receptor Agonist inject 2 mg by subcutaneous injection every week exenatide microspheres (BYDUREON) 2 mg/0.65 mL pnij Inject 2 mg subcutaneously one time a week. 0 Active Comment on above: Inject 2 mg subcutan eously one time a week. FISH OIL-DHA-EPA ORAL (2 sources) FISH OIL-DHA-EPA ORAL Take by mouth once daily. 0 Active Comment on above: Take by mouth once d aily. multivit with minerals/lutein (MULTIVITAMIN 50 PLUS ORAL) (2 sources) multivit with minerals/lutein (MULTIVITAMIN 50 PLUS ORAL) Take by mouth once daily. 0 Active Comment on above: Take by mouth once d aily. Problems Problem Classification Problem Date Documented Da te Episodic/Chronic Deficiency and other anemia (1 source) Anemia 05-16-2023 Episodic Diabetes mellitus without complication (2 sources) Diabetes mellitus 02-01-2020 Chronic Disorders of lipid metabolism (2 sources) Mixed hyperlipidemia 04-13-2019 Chronic Essential hypertension (2 sources) Hypertensive disorder 10-30-2013 Chronic Fracture of upper limb (1 source) Closed fracture of olecranon process of ulna 03-29-2023 Episodic Mood disorders (2 sources) Major depression, single episode 09-04-2021 Chronic Other bone disease and musculoskeletal deformities (2 sources) Shoulder girdle weakness; Translations: [Shoulder weakness] Episodic Other connective tissue disease (1 source) Other infective bursitis, right elbow; Translations: [Other infective bursitis, right elbow] Onset: Episodic Other gastrointestinal disorders (2 sources) Dysphagia 10-03-2020 Episodic Other injuries and conditions due to external causes (2 sources) Suprascapular nerve injury 10-03-2020 Episodic Other nervous system disorders (2 sources) Suprascapular nerve lesion; 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, 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 Other nervous system disorders (1 source) Mononeuropathy of upper limb; Translations: [Other specified mononeuropathies of right upper limb] Chronic Other nervous system disorders (2 sources) Paresthesia of upper limb; Translations: [Numbness and tingling of both upper extremities] Episodic Other nervous system disorders (1 source) Other acute postprocedural pain; Translations: [Post-op pain] Onset: 3 Episodic Other nervous system disorders (1 source) Carpal tunnel syndrome of right wrist; Translations: [Carpal tunnel syndrome, right upper limb] Other non-traumatic joint disorders (6 sources) Shoulder pain; Translations: [Chronic pain of both shoulders] 03-11-2020 Episodic Other non-traumatic joint disorders (2 sources) Joint pain 10-03-2020 Episodic Other non-traumatic joint disorders (1 source) Pain in elbow 03-19-2023 Episodic Unclassified (2 sources) Patient encounter status 04-13-2019 Results Test Name Value Interpretation Reference Range Facility .GFRon 05-25-2023 GFR Non- 69 ml/min/1.73sqm Normal [facility] ([place]) Comment on above: Result Comment: GFR Population mean for , Non- Americans Ages 20-29 = 116 mL/min/1.73 sq.m. Ages 30-39 = 107 mL/min/1.73 sq.m. Ages 40-49 = 99 mL/min/1.73 sq.m. Ages 50-59 = 93 mL/min/1.73 sq.m. Ages 60-69 = 85 mL/min/1.73 sq.m. Ages 70+ = 75 mL/min/1.73 sq.m. Chronic Kidney Disease: Less than 60 mL/min/1.73 square meters End Stage Renal Disease: Less than 15 mL/min/1.73 square meters Performed By: #### F E, PSA, GFR, CMP, LIPID, FERR, RETO #### [address] [address] #### B12 #### [address] [address] GFR 83 ml/min/1.73sqm Normal [facility] ([place]) Comment on above: Result Comment: GFR Population mean for , Non- Americans Ages 20-29 = 116 mL/min/1.73 sq.m. Ages 30-39 = 107 mL/min/1.73 sq.m. Ages 40-49 = 99 mL/min/1.73 sq.m. Ages 50-59 = 93 mL/min/1.73 sq.m. Ages 60-69 = 85 mL/min/1.73 sq.m. Ages 70+ = 75 mL/min/1.73 sq.m. Chronic Kidney Disease: Less than 60 mL/min/1.73 square meters End Stage Renal Disease: Less than 15 mL/min/1.73 square meters Performed By: #### F E, PSA, GFR, CMP, LIPID, FERR, RETO #### [place] [address] #### B12 #### [address] [address] B12on 05-25-2023 Cobalamin (Vitamin B12) [Mass/Vol] 414 pg/mL Normal 211-911 [facility] ([place]) Comment on above: Performed By: #### F E, PSA, GFR, CMP, LIPID, FERR, RETO #### [place] [address] #### B12 #### [place] [address] CMPon 05-25-2023 ALT [Catalytic activity/Vol] 11 U/L Low 16-63 [facility] ([place]) Comment on above: Performed By: #### F E, PSA, GFR, CMP, LIPID, FERR, RETO #### [address] [address] #### B12 #### [address] [address] Albumin Level 3.5 G/dL Normal 3.4-4.8 [facility] ([place]) Comment on above: Performed By: #### F E, PSA, GFR, CMP, LIPID, FERR, RETO #### [address] [address] #### B12 #### [address] [address] Albumin/Globulin [Mass ratio] 1.0 {ratio} Low 1.1-2.5 [facility] ([place]) Comment on above: Performed By: #### F E, PSA, GFR, CMP, LIPID, FERR, RETO #### [address] [address] #### B12 #### [address] [address] ALP [Catalytic activity/Vol] 73 U/L Normal 40-135 [facility] ([place]) Comment on above: Performed By: #### F E, PSA, GFR, CMP, LIPID, FERR, RETO #### [place] [address] #### B12 #### [place] [address] AST [Catalytic activity/Vol] 12 U/L Normal 10-40 [facility] ([place]) Comment on above: Performed By: #### F E, PSA, GFR, CMP, LIPID, FERR, RETO #### [place] [address] #### B12 #### [place] [address] Bili Total 0.5 mg/dL Normal 0.2-1.0 [facility] ([place]) Comment on above: Result Comment: Use of this assay is not recommended for patients undergoing treatment with eltrombopag due to the potential for falsely elevated results. Performed By: #### F E, PSA, GFR, CMP, LIPID, FERR, RETO #### [place] [address] #### B12 #### [place] [address] BUN/Creatinine Ratio 17 ratio Normal 7-27 [facility] ([place]) Comment on above: Performed By: #### F E, PSA, GFR, CMP, LIPID, FERR, RETO #### [place] [address] #### B12 #### [place] [id number] Calcium [Mass/Vol] 9.1 mg/dL Normal 8.4-10.2 [facility] ([place]) Comment on above: Performed By: #### F E, PSA, GFR, CMP, LIPID, FERR, RETO #### [address] [address] #### B12 #### [address] [address] Chloride [Moles/Vol] 100 mmol/L Normal 98-107 [facility] ([place]) Comment on above: Performed By: #### F E, PSA, GFR, CMP, LIPID, FERR, RETO #### [place] [address] #### B12 #### [address] [address] CO2 [Moles/Vol] 29 mmol/L Normal 23-31 [facility] ([place]) Comment on above: Performed By: #### F E, PSA, GFR, CMP, LIPID, FERR, RETO #### [place] [address] #### B12 #### [address] [address] Creatinine [Mass/Vol] 1.08 mg/dL Normal 0.70-1.30 [facility] ([place]) Comment on above: Performed By: #### F E, PSA, GFR, CMP, LIPID, FERR, RETO #### [place] [address] #### B12 #### [address] [address] Electrolyte Balance 9.0 mEq/L Normal 4.0-15.0 [facility] ([place]) Comment on above: Performed By: #### F E, PSA, GFR, CMP, LIPID, FERR, RETO #### [place] [address] #### B12 #### [address] [address] Globulin 3.5 G/dL Normal [facility] ([place]) Comment on above: Performed By: #### F E, PSA, GFR, CMP, LIPID, FERR, RETO #### [place] [address] #### B12 #### [address] [address] Glucose [Mass/Vol] 247 mg/dL High 80-115 [facility] ([place]) Comment on above: Performed By: #### F E, PSA, GFR, CMP, LIPID, FERR, RETO #### [address] [address] #### B12 #### [address] [address] Potassium [Moles/Vol] 5.2 mmol/L High 3.5-5.1 [facility] ([place]) Comment on above: Performed By: #### F E, PSA, GFR, CMP, LIPID, FERR, RETO #### [address] [address] #### B12 #### [address] [address] Sodium [Moles/Vol] 138 mmol/L Normal 136-145 [facility] ([place]) Comment on above: Performed By: #### F E, PSA, GFR, CMP, LIPID, FERR, RETO #### [place] [address] #### B12 #### [address] [address] Total Protein 7.0 G/dL Normal 6.4-8.2 [facility] ([place]) Comment on above: Performed By: #### F E, PSA, GFR, CMP, LIPID, FERR, RETO #### [place] [address] #### B12 #### [address] [address] Urea nitrogen [Mass/Vol] 18 mg/dL Normal 7-18 [facility] ([place]) Comment on above: Performed By: #### F E, PSA, GFR, CMP, LIPID, FERR, RETO #### [address] [address] #### B12 #### [address] [address] FEon 05-25-2023 Iron [Mass/Vol] 49 ug/dL Low 65-175 [facility] ([place]) Comment on above: Performed By: #### F E, PSA, GFR, CMP, LIPID, FERR, RETO #### [address] [address] #### B12 #### [address] [address] Chasity 05-25-2023 Ferritin [Mass/Vol] 182.0 ng/mL Normal 26.0-388.0 [facility] ([place]) Comment on above: Performed By: #### F E, PSA, GFR, CMP, LIPID, FERR, RETO #### [address] [address] #### B12 #### [address] [address] LABORATORYOrdered By: SYSTEM SYSTEM on 05-25-2023 Albumin BCP dye [Mass/Vol] 3.5 G/dL Normal 3.4 - 4.8 G/dL AO ADM SS Albumin/Globulin [Mass ratio] 1.0 {ratio} Low 1.1 - 2.5 ratio AO ADM SS ALP [Catalytic activity/Vol] 73 U/L Normal 40 - 135 U/L AO ADM SS ALT With P-5'-P [Catalytic activity/Vol] 11 U/L Low 16 - 63 U/L AO ADM SS AST With P-5'-P [Catalytic activity/Vol] 12 U/L Normal 10 - 40 U/L AO ADM SS Bilirubin [Mass/Vol] 0.5 mg/dL Normal 0.2 - 1 .0 mg/dL AO ADM SS Comment on above: Interpretive Data: U se of this assay is not recommended for patients undergoing treatment with eltrombopag due to the potential for falsely elevated results. Calcium [Mass/Vol] 9.1 mg/dL Normal 8.4 - 10. 2 mg/dL AO ADM SS Chloride [Moles/Vol] 100 mmol/L Normal 98 - 10 7 mmol/L AO ADM SS CO2 [Moles/Vol] 29 mmol/L Normal 23 - 31 mmol/L AO ADM SS Cobalamin (Vitamin B12) [Mass/Vol] 414 pg/mL Normal 211 - 911 pg/mL AH ADM SS Creatinine [Mass/Vol] 1.08 mg/dL Normal 0.70 - 1.30 mg/dL AO ADM SS Electrolyte Balance 9.0 mEq/L Normal 4.0 - 15 .0 mEq/L AO ADM SS Ferritin [Mass/Vol] 182.0 ng/mL Normal 26.0 - 3 88.0 ng/mL AO ADM SS GFR/1.73 sq M.predicted among blacks MDRD (S/P/Bld) [Vol rate/Area] 83 ml/min/1.73sqm Invalid Interpretation Code AO Chemistry S Comment on above: Interpretive Data: GFR Population mean for , Non- Americans Ages 20-29 = 116 mL/min/1.73 sq.m. Ages 30-39 = 107 mL/min/1.73 sq.m. Ages 40-49 = 99 mL/min/1.73 sq.m. Ages 50-59 = 93 mL/min/1.73 sq.m. Ages 60-69 = 85 mL/min/1.73 sq.m. Ages 70+ = 75 mL/min/1.73 sq.m. Chronic Kidney Disease: Less than 60 mL/min/1.73 square meters End Stage Renal Disease: Less than 15 mL/min/1.73 square meters GFR/1.73 sq M.predicted among non-blacks MDRD (S/P/Bld) [Vol rate/Area] 69 ml/min/1.73sqm Invalid Interpretation Code AO Chemistry S Comment on above: Interpretive Data: GFR Population mean for , Non- Americans Ages 20-29 = 116 mL/min/1.73 sq.m. Ages 30-39 = 107 mL/min/1.73 sq.m. Ages 40-49 = 99 mL/min/1.73 sq.m. Ages 50-59 = 93 mL/min/1.73 sq.m. Ages 60-69 = 85 mL/min/1.73 sq.m. Ages 70+ = 75 mL/min/1.73 sq.m. Chronic Kidney Disease: Less than 60 mL/min/1.73 square meters End Stage Renal Disease: Less than 15 mL/min/1.73 square meters Globulin 3.5 G/dL Invalid Interpretation Code AO ADM SS Glucose [Mass/Vol] 247 mg/dL High 80 - 115 mg/dL AO ADM SS Immature reticulocytes/Total reticulocytes (Bld) 0.52 IRF High 0.20 - 0.46 IRF AO Workflow SS Iron [Mass/Vol] 49 ug/dL Low 65 - 175 mcg/dL AO ADM SS Potassium [Moles/Vol] 5.2 mmol/L High 3.5 - 5.1 mmol/L AO ADM SS Prostate specific Ag [Mass/Vol] 1.70 ng/mL Normal 0.00 - 4.00 ng/mL AO ADM SS Protein [Mass/Vol] 7.0 G/dL Normal 6.4 - 8.2 G/dL AO ADM SS Reticulocytes, Auto 1.2 % Normal 0.2 - 2.3 % AO W orkflow SS Sodium [Moles/Vol] 138 mmol/L Normal 136 - 145 mmol/L AO ADM SS Urea nitrogen [Mass/Vol] 18 mg/dL Normal 7 - 18 mg/dL AO ADM SS Urea nitrogen/Creatinine [Mass ratio] 17 ratio Normal 7 - 27 ratio AO ADM SS LABORATORYOrdered By: Evi Juárez on 05-25-2023 Albumin DL <= 20 mg/L (U) [Mass/Vol] 998 mcg/dL Invalid Interpretation Code AO ADM SS Albumin/Creatinine DL <= 20 mg/L (U) [Mass ratio] 10 mcg/mg Normal 0 - 30 mcg/mg AO ADM SS Cholesterol [Mass/Vol] 174 mg/dL Normal 0 - 200 mg/dL AO ADM SS Comment on above: Interpretive Data: C holesterol Reference Interval: Less than 200 Desirable 200-239 Borderline high risk 240 and above High risk Cholesterol in HDL [Mass/Vol] 52 mg/dL Normal 40 - 60 mg/dL AO ADM SS Cholesterol in LDL [Mass/Vol] 116 mg/dL Normal 0 - 130 mg/dL AO ADM SS Creatinine (U) [Mass/Vol] 97.5 mg/dL Normal 39.0 - 259.0 mg/dL AO ADM SS Triglyceride [Mass/Vol] 29 mg/dL Normal 0 - 150 mg/dL AO ADM SS Comment on above: Interpretive Data: T riglyceride Reference Interval: Less than 150 Normal 150-199 Borderline high risk 200-499 High risk 500 or higher Very high risk LIPIDon 05-25-2023 Cholesterol [Mass/Vol] 174 mg/dL Normal 0-200 [facility] ([place]) Comment on above: Result Comment: Chol esterol Reference Interval: Less than 200 Desirable 200-239 Borderline high risk 240 and above High risk Performed By: #### F E, PSA, GFR, CMP, LIPID, FERR, RETO #### [address] [address] #### B12 #### [address] [address] Cholesterol in HDL [Mass/Vol] 52 mg/dL Normal 40-60 [facility] ([place]) Comment on above: Performed By: #### F E, PSA, GFR, CMP, LIPID, FERR, RETO #### [address] [address] #### B12 #### [address] [address] Cholesterol in LDL [Mass/Vol] 116 mg/dL Normal 0-130 [facility] ([place]) Comment on above: Performed By: #### F E, PSA, GFR, CMP, LIPID, FERR, RETO #### [address] [address] #### B12 #### [address] [address] Triglyceride [Mass/Vol] 29 mg/dL Normal 0-150 [facility] ([place]) Comment on above: Result Comment: Trig lyceride Reference Interval: Less than 150 Normal 150-199 Borderline high risk 200-499 High risk 500 or higher Very high risk Performed By: #### F E, PSA, GFR, CMP, LIPID, FERR, RETO #### [address] [address] #### B12 #### [address] [address] MALBRon 05-25-2023 U Creatinine 97.5 mg/dL Normal 39.0-259.0 [facility] ([place]) Comment on above: Performed By: #### M ALBR ####[address] [address] U Microalb 998 mcg/dL Normal [facility] ([place]) Comment on above: Performed By: #### M ALBR ####[place] [address] [place], [place] [address] U Ratio Alb/Cre 10 mcg/mg Normal 0-30 [facility] ([place]) Comment on above: Performed By: #### M ALBR ####[address] [address] PSAon 05-25-2023 Prostate Specific Antigen 1.70 ng/mL Normal 0.00-4.00 [facility] ([place]) Comment on above: Performed By: #### F E, PSA, GFR, CMP, LIPID, FERR, RETO #### [place] [address] #### B12 #### [place] [address] RETO (AO)on 05-25-2023 Immature Retic Fraction 0.52 IRF High 0.20-0.46 [facility] ([place]) Comment on above: Performed By: #### F E, PSA, GFR, CMP, LIPID, FERR, RETO #### [place] [address] #### B12 #### [address] [address] Reticulocytes, Auto 1.2 % Normal 0.2-2.3 [facility] ([place]) Comment on above: Performed By: #### F E, PSA, GFR, CMP, LIPID, FERR, RETO #### [place] [address] #### B12 #### [address] [address] Basic metabolic 2000 panelon 04-20-2023 Anion gap [Moles/Vol] 9 mmol/L Normal 5-16 [facility] Comment on above: Order Comment: Speci men Type: BLOOD SPECIMENOrdering Facility: [facility] Address: [address] [place] [address] Performed By: #### 4 091-5, 02692-5 ####[facility] [id number] [place] [address] [place] Calcium [Mass/Vol] 9.3 mg/dL Normal 8.5-10.5 [facility] Comment on above: Order Comment: Speci men Type: BLOOD SPECIMENOrdering Facility: [facility] Address: [address] [place] [address] Performed By: #### 4 091-5, 86571-6 ####[facility] [id number] [place] [address] [place] Chloride [Moles/Vol] 108 mmol/L High 98-107 [facility] Comment on above: Order Comment: Speci men Type: BLOOD SPECIMENOrdering Facility: [facility] Address: [address] [place] [address] Performed By: #### 4 091-5, 42888-5 ####[facility]ORY[facility] [id number] [place] [address] [place] CO2 [Moles/Vol] 26 mmol/L Normal 21-32 [facility] Comment on above: Order Comment: Speci men Type: BLOOD SPECIMENOrdering Facility: [facility] Address: [address] [place] [address] Performed By: #### 4 091-5, 66069-1 ####[facility]ORY[facility] [id number] [place] [address] [place] Creatinine [Mass/Vol] 0.85 mg/dL Normal 0.50-1.40 [facility] Comment on above: Order Comment: Speci men Type: BLOOD SPECIMENOrdering Facility: [facility] Address: [address] [place] [address] Result Comment: Varsha ents receiving either N-Acetylcysteine (NAC) or Metamizole prior to venipuncture, may have falsely depressed results. Performed By: #### 4 091-5, 75412-1 ####[facility]ORY[facility] [id number] [place] [address] [place] Creatinine and Glomerular filtration rate.predicted panel (S/P/Bld) 97 mL/min/1.73m??? Normal >=60 [facility] Comment on above: Order Comment: Jane garcia Type: BLOOD SPECIMENOrdering Facility: [facility] Address: [address] [place] [address] [place] [address] Result Comment: Tammie mated Glomerular Filtration Rate (eGFR) is calculated using the 2020 CKD-EPI creatinine equation. This equation utilizes serum creatinine, sex, and age as parameters. The creatinine assay has traceable calibration to isotope dilution-mass spectrometry. Refer to KDIGO guidelines for clinical interpretation. In patients with unstable renal function, e.g. those with acute kidney injury, the eGFR may not accurately reflect actual GFR. Performed By: #### 4 091-5, 47396-2 ####[facility]ORYCL[facility] [id number] [place] [address] [place] Glucose [Mass/Vol] 175 mg/dL High 70-100 [facility] Comment on above: Order Comment: Jane garcia Type: BLOOD SPECIMENOrdering Facility: [facility] Address: [address] [place] [address] Result Comment: The [place] [employer] (ADA) provides guidance for cutoff values for fasting glucose and random glucose. The ADA defines fasting as no caloric intake for at least 8 hours. Fasting plasma glucose results between 100 to 125 mg/dL indicate increased risk for diabetes (prediabetes). Fasting plasma glucose results greater than or equal to 126 mg/dL meet the criteria for diagnosis of diabetes. In the absence of unequivocal hyperglycemia, results should be confirmed by repeat testing. In a patient with classic symptoms of hyperglycemia or hyperglycemic crisis, random plasma glucose results greater than or equal to 200 mg/dL meet the criteria for diagnosis of diabetes. Reference: Standards of Medical Care in Diabetes 2016, [place] [employer]. Diabetes Care. 2016.39(Suppl 1). Results may be falsely elevated after the administration of Sulfapyridine. Results may be falsely depressed after the administration of Sulfasalazine. Performed By: #### 4 091-5, 82256-3 ####[facility]ORYCLIA [id number] [place] [address] [place] Potassium [Moles/Vol] 4.0 mmol/L Normal 3.5-5.1 [facility] Comment on above: Order Comment: Speci men Type: BLOOD SPECIMENOrdering Facility: [facility] Address: [address] [id number] Performed By: #### 4 091-5, 40304-6 ####[facility]ORYCLIA [id number] [place] [id number] [facility] Sodium [Moles/Vol] 143 mmol/L Normal 136-145 [facility] Comment on above: Order Comment: Speci men Type: BLOOD SPECIMENOrdering Facility: [facility] Address: [address] [place] [address] Performed By: #### 4 091-5, 61628-9 ####[facility]ORYCLIA [id number] [address] STATES [facility] Urea nitrogen [Mass/Vol] 12 mg/dL Normal 7-26 [facility] Comment on above: Order Comment: Speci men Type: BLOOD SPECIMENOrdering Facility: [facility] Address: [address] [place] [address] Performed By: #### 4 091-5, 88610-0 ####[facility]ORYCLIA [id number] [address] CONSULT PROGon 04-20-2023 CONSULT PROG HNO ID: [id number] Author: Tamra Mike DO Service: Hospital Medicine Author Type: Physician Type: Consult Progress Note Filed: 04/20/2023 3:55 PM Note Text: INPATIENT Consult PROGRESS NOTE PRIMARY SERVICE: Orthopedics Subjective Patient denies any acute complaints at this time. Current Facility-Administered Medications Medication Dose Route Frequency acetaminophen 1,000 mg tab(s) (TYLENOL) 1,000 mg ORAL q 8 HR oxyCODONE IR 5-10 mg tab(s) (ROXICODONE) 5-10 mg ORAL q 3 H PRN HYDROmorphone 0.5 mg injection (DILAUDID) 0.5 mg INTRAVENOUS q 3 H PRN ondansetron 4 mg tab(s) (ZOFRAN) 4 mg ORAL q 6 H PRN Or ondansetron (PF) 4 mg injection (ZOFRAN) 4 mg INTRAVENOUS q 6 H PRN dextrose 40 % 15 g 15 g ORAL PRN Or glucagon 1 mg injection 1 mg INTRAMUSCULAR PRN Or dextrose 10% iv bolus 12.5 g INTRAVENOUS PRN insulin lispro injection (rapid acting) (HumaLOG) SUBCUTANEOUS w MEALS NaCl 0.9% iv flush bag 20 mL INTRAVENOUS PRN NaCl 0.9% iv infusion 75 mL/hr INTRAVENOUS CONTINUOUS lisinopril 10 mg tab(s) (ZESTRIL) 10 mg ORAL DAILY pantoprazole DR 40 mg tab(s) (PROTONIX) 40 mg ORAL DAILY (6 AM) insulin lispro injection (rapid acting) (HumaLOG) SUBCUTANEOUS AT BEDTIME buPROPion XL 150 mg tab(s) (WELLBUTRIN XL) 150 mg ORAL DAILY ceFAZolin iv piggyback 2 g in D5W (iso-osmotic) 100 mL (ANCEF) 2 g INTRAVENOUS q 8 HR Objective PHYSICAL EXAM: BP 133/66 Pulse 61 Temp (Src) 97 (Temporal) Resp 16 Ht 6' 0 (1.83m) Wt 141 lb (64.0kg) SpO2 99% BMI 19.12 kg/(m2). O2 Therapy: Room Air General: Alert and oriented, no distress, pleasant and cooperative. HEENT: EOM intact, moist mucous membranes, trachea midline, absent scleral icterus Heart: Regular, normal S1 and S2, no murmurs, rubs, or gallops Lungs: Clear to auscultation bilaterally, no wheezing, crackles, rhonchi, no accessory muscle use Abdomen: Soft, non tender, non distended, no guarding, non rigid Extremities: Feet/ankles without edema. Right arm is in a sling. Neuro: CN II-XII intact, no focal neurological deficits DATA: LABORATORY TESTS: CBC: Recent Labs 04/19/2351704/18/2351204/17/231916 WBC 6.48 10.68 6.69 HB 11.4* 10.7* 11.4* PLT 259 257 289 MCV 89.4 89.7 89.5 NEUTP -- 87.0 75.1 ABSNEUT -- 9.29* 5.02 LYMPHP -- 6.2 11.7 CHEM: Recent Labs 04/20/23 0632 04/19/2351704/18/23512 NA 143 143 141 K 4.0 4.1 4.2 CA 9.3 9.0 8.6 ANION 9 4* 9 CHLOR 108* 109* 108* CO2 26 30 24 GLUC 175* 157* 169* BUN 12 12 17 CREAT 0.85 0.95 0.98 HEPATIC: No results for input(s): ALT , AST , TBILI , ALKPHOS , ALB , TPROT , LIPASE in the last 168 hours. DATA: Diagnostic tests reviewed for today's visit: Most recent labs and imaging results. Most recent EKG Medication and Non-Pharmacologic VTE Prophylaxis/Anticoagu lants 04/17/231744 vte current anticoag therapy ([place] 04/17/231744 pneumatic compression stockings ([place] 04/17/231744 activity - mobilize patient ([place]) Assesment: 63 year old male with PMHx of diabetes, hypertension, depression admitted for olecranon osteomyelitis. 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 Status post IANDD. Cultures growing MSSA patient will continue on 6 weeks of IV Ancef as per infectious disease. Diabetes. Continue insulin sliding scale. Hypertension. Continue home lisinopril 10 mg. Normocytic anemia. Patient reports recent colonoscopy with polyps that have been biopsied outpatient follow-up. DVT PPX: As per primary CODE STATUS: Code Status: Not on file Medicine will sign off. Plan of care discussed with: Provider, RN, Patient. Disclaimer This dictation was created using voice recognition software. Phonetic and/or minor grammatical errors may exist. SIGNATURE: Tarma Mike DO PATIENT NAME: Aurelio Rodriguez DATE: 04/20/2023 TIME: 3:52 PM [facility] CONSULT PROG HNO ID: [id number] Author: Richi Edwards V [facility] Service: Pharmacy Author Type: Pharmacist Type: Consult Progress Note Filed: 04/20/2023 10:55 AM Note Text: PHARMACY VANCOMYCIN DOSING NOTE Patient Name: Aurelio Rodriguez Admission Date: 04/17/2023 Date of Consult: 04/20/2023 Time of Consult: 10:54 AM Indication: Bone AND joint infection Goal Range: 15-20 mcg/mL RECOMMENDATIONS/PLAN: Pharmacy consulted for vancomycin dosing for Aurelio Rodriguez, a 63 year old male. 1. Vancomycin therapy has been discontinued. Vancomycin level(s) have been discontinued: Not Applicable. Pharmacy vancomycin dosing service will sign off. Thank you for allowing us to participate in this patient's care. Please contact pharmacy if there are questions. Richi Edwards, [facility] CONSULT PROG HNO ID: [id number] Author: Toñito Leach MD Service: Infectious Disease Author Type: Physician Type: Consult Progress Note Filed: 04/20/2023 10:49 AM Note Text: Infectious Disease SERVICE CONSULT PROGRESS NOTE SERVICE DATE: 04/20/2023 SERVICE TIME: 10:47 AM Subjective INTERVAL HPI: Covering for Dr. Jaquez. No new complaints. He says his right elbow pain is under control. Denies fevers or chills. No nausea or vomiting. Current Facility-Administered Medications Medication Dose Route Frequency acetaminophen 1,000 mg tab(s) (TYLENOL) 1,000 mg ORAL q 8 HR oxyCODONE IR 5-10 mg tab(s) (ROXICODONE) 5-10 mg ORAL q 3 H PRN HYDROmorphone 0.5 mg injection (DILAUDID) 0.5 mg INTRAVENOUS q 3 H PRN ondansetron 4 mg tab(s) (ZOFRAN) 4 mg ORAL q 6 H PRN Or ondansetron (PF) 4 mg injection (ZOFRAN) 4 mg INTRAVENOUS q 6 H PRN dextrose 40 % 15 g 15 g ORAL PRN Or glucagon 1 mg injection 1 mg INTRAMUSCULAR PRN Or dextrose 10% iv bolus 12.5 g INTRAVENOUS PRN insulin lispro injection (rapid acting) (HumaLOG) SUBCUTANEOUS w MEALS vancomycin dosing and monitoring per pharmacy OTHER As Directed NaCl 0.9% iv flush bag 20 mL INTRAVENOUS PRN NaCl 0.9% iv infusion 75 mL/hr INTRAVENOUS CONTINUOUS lisinopril 10 mg tab(s) (ZESTRIL) 10 mg ORAL DAILY pantoprazole DR 40 mg tab(s) (PROTONIX) 40 mg ORAL DAILY (6 AM) insulin lispro injection (rapid acting) (HumaLOG) SUBCUTANEOUS AT BEDTIME buPROPion XL 150 mg tab(s) (WELLBUTRIN XL) 150 mg ORAL DAILY vancomycin iv piggyback 1 g in D5W 200 mL (VANCOCIN) 1 g INTRAVENOUS q 12 HR Objective PHYSICAL EXAM: Physical Exam Performed: BP 133/66 Pulse 61 Temp (Src) 97 (Temporal) Resp 16 Ht 6' 0 (1.83m) Wt 141 lb (64.0kg) SpO2 99% BMI 19.12 kg/(m2). O2 Therapy: Room Air Alert and oriented. No acute distress. Left upper extremity PICC line intact with no redness or discharge at the site. Regular rate and rhythm. Breathing nonlabored. No crackles appreciated. Abdomen soft, nontender. Right arm is heavily wrapped. Currently in a sling. No lower extremity edema. DATA: Diagnostic tests reviewed for today's visit: CBC: No results for input(s): WBC , RBC , HB , HCT , PLT , MCV , MCH , MPV , RDW in the last 24 hours. CMP: Recent Labs 04/20/23 0632 NA 143 K 4.0 CHLOR 108* CO2 26 BUN 12 CREAT 0.85 GLUC 175* CA 9.3 ANION 9 Impression/Recommenda tions Principal Problem: Left elbow septic olecranon bursitis, osteomyelitis due to MSSA. History of diabetes. Status post IANDD Cultures are growing MSSA. Based on this, will switch from vancomycin to Ancef. Will plan on long-term IV antibiotics, 6 weeks. Patient to follow-up with Dr. Jaquez as outpatient in 2 weeks. See orders. OK to discharge from ID standpoint. SIGNATURE: Toñito Leach MD PATIENT NAME: Aurelio Rodriguez DATE: April 20, 2023 TIME: 10:47 AM [facility] CONSULT PROG HNO ID: [id number] Author: Yadira Armijo RPh Service: Pharmacy Author Type: Pharmacist Type: Consult Progress Note Filed: 04/20/2023 8:02 AM Note Text: PHARMACY VANCOMYCIN DOSING NOTE Patient Name: Aureilo Rodriguez Admission Date: 04/17/2023 Date of Consult: 04/20/2023 Time of Consult: 8:01 AM Indication: Bone AND joint infection Goal Range: 15-20 mcg/mL RECOMMENDATIONS/PLAN: Pharmacy consulted for vancomycin dosing for Aurelio Rodriguez, a 63 year old male. 1. Patient is currently ordered Vancomycin 750 mg IV q12h. Today is day 4 of therapy. 2. The most recent vancomycin level was 10.9 mcg/mL drawn at 0632 on 04/20. This is a ~23 hour level on the 4th day of therapy. 3. Will increase vancomycin to 1 g with a dosing interval of q12h. 4. The next vancomycin level has been ordered for 04/22 at 0730 (Completed) We will follow patient renal function, vancomycin levels and doses with you during the course of therapy. Additional recommendations will appear in follow up notes. If you have any questions, please contact Pharmacy at [phone]. Age: [age] year old Allergies: ALLERGIES Allergen Reactions Erythromycin Other: See Comments Red eyes Last 3 Encounter Wt Readings: Date: Wt: 04/12/2023 64 kg (141 lb) 07/15/2020 68 kg (150 lb) Last 1 Encounter Ht Readings: Date: Ht: 04/12/2023 182.9 cm (6') CrCl: 79.5 mL/min Temp (24hrs), Av.4 ?C (97.5 ?F), Min:36.1 ?C (97 ?F), Max:36.8 ?C (98.3 ?F) - Current Temp: 36.1 ?C (97 ?F) Labs BUN (mg/dL) Date Value 04/20/2023 12 04/19/2023 12 04/18/2023 17 Creatinine (mg/dL) Date Value 04/20/2023 0.85 04/19/2023 0.95 04/18/2023 0.98 WBC (k/uL) Date Value 04/19/2023 6.48 04/18/2023 10.68 04/17/2023 6.69 Vancomycin Levels: Vancomycin (ug/mL) Date/Time Value 04/20/2023 0632 10.9 Yadira Armijo, [facility] Normal [facility] Vancomycin [place] SerPl-mCncon 04-20-2023 Vancomycin random [Mass/Vol] 10.9 ug/mL Normal 10.0-25.0 [facility] Comment on above: Order Comment: Speci men Type: BLOOD SPECIMENOrdering Facility: [facility] Address: [address] [place] [address] [place] [address] Result Comment: Refe rence ranges and high/low indicator flags are provided as general guidelines only. The treating physician must determine appropriate target levels/dosing based on the specific clinical situation. Performed By: #### 4 091-5, 45145-9 ####[facility]ORYCLIA [id number] [address] [place] Basic metabolic 2000 panelon 04-19-2023 Anion gap [Moles/Vol] 4 mmol/L Low 5-16 [facility] Comment on above: Order Comment: Speci men Type: BLOOD SPECIMENOrdering Facility: [facility] Address: [address] [place] [address] Performed By: #### 2 4321-2 ####[facility]ORYCLIA [id number] [place] [address] [place] Calcium [Mass/Vol] 9.0 mg/dL Normal 8.5-10.5 [facility] Comment on above: Order Comment: Speci men Type: BLOOD SPECIMENOrdering Facility: [facility] Address: [address] [place] [address] Performed By: #### 2 4321-2 ####[facility]ORYCLIA [id number] [place] [address] [place] Chloride [Moles/Vol] 109 mmol/L High 98-107 [facility] Comment on above: Order Comment: Speci men Type: BLOOD SPECIMENOrdering Facility: [facility] Address: [address] [place] [address] Performed By: #### 2 4321-2 ####[facility]ORYCLIA [id number] [place] [address] [place] CO2 [Moles/Vol] 30 mmol/L Normal 21-32 [facility] Comment on above: Order Comment: Speci men Type: BLOOD SPECIMENOrdering Facility: [facility] Address: [address] [place] [address] Performed By: #### 2 4321-2 ####[facility]ORYCLIA [id number] [place] [address] [place] Creatinine [Mass/Vol] 0.95 mg/dL Normal 0.50-1.40 [facility] Comment on above: Order Comment: Jane garcia Type: BLOOD SPECIMENOrdering Facility: [facility] Address: [address] [place] [address] Result Comment: Varsha ents receiving either N-Acetylcysteine (NAC) or Metamizole prior to venipuncture, may have falsely depressed results. Performed By: #### 2 4321-2 ####[facility]ORYCLIA [id number] [place] [address] [place] Creatinine and Glomerular filtration rate.predicted panel (S/P/Bld) 89 mL/min/1.73m??? Normal >=60 [facility] Comment on above: Order Comment: Jane garcia Type: BLOOD SPECIMENOrdering Facility: [facility] Address: [address] [place] [address] Result Comment: Tammie mated Glomerular Filtration Rate (eGFR) is calculated using the 2020 CKD-EPI creatinine equation. This equation utilizes serum creatinine, sex, and age as parameters. The creatinine assay has traceable calibration to isotope dilution-mass spectrometry. Refer to KDIGO guidelines for clinical interpretation. In patients with unstable renal function, e.g. those with acute kidney injury, the eGFR may not accurately reflect actual GFR. Performed By: #### 2 4321-2 ####[facility]ORYCLIA [id number] [place] [address] [place] Glucose [Mass/Vol] 157 mg/dL High 70-100 [facility] Comment on above: Order Comment: Jane garcia Type: BLOOD SPECIMENOrdering Facility: [facility] Address: [address] [place] [address] Result Comment: The [place] [employer] (ADA) provides guidance for cutoff values for fasting glucose and random glucose. The ADA defines fasting as no caloric intake for at least 8 hours. Fasting plasma glucose results between 100 to 125 mg/dL indicate increased risk for diabetes (prediabetes). Fasting plasma glucose results greater than or equal to 126 mg/dL meet the criteria for diagnosis of diabetes. In the absence of unequivocal hyperglycemia, results should be confirmed by repeat testing. In a patient with classic symptoms of hyperglycemia or hyperglycemic crisis, random plasma glucose results greater than or equal to 200 mg/dL meet the criteria for diagnosis of diabetes. Reference: Standards of Medical Care in Diabetes 2016, [place] [employer]. Diabetes Care. 2016.39(Suppl 1). Results may be falsely elevated after the administration of Sulfapyridine. Results may be falsely depressed after the administration of Sulfasalazine. Performed By: #### 2 4321-2 ####[facility]ATORYCLIA [id number] [place] [address] [place] Potassium [Moles/Vol] 4.1 mmol/L Normal 3.5-5.1 [facility] Comment on above: Order Comment: Speci men Type: BLOOD SPECIMENOrdering Facility: [facility] Address: [address] [place] [address] Performed By: #### 2 4321-2 ####[facility]ORYCLIA [id number] [address] STATES OF [facility] Sodium [Moles/Vol] 143 mmol/L Normal 136-145 [facility] Comment on above: Order Comment: Speci men Type: BLOOD SPECIMENOrdering Facility: [facility] Address: [address] [place] [address] Performed By: #### 2 4321-2 ####[facility]ORYCLIA [id number] [place] [address] [place] Urea nitrogen [Mass/Vol] 12 mg/dL Normal 7-26 [facility] Comment on above: Order Comment: Speci men Type: BLOOD SPECIMENOrdering Facility: [facility] Address: [address] [place] [address] Performed By: #### 2 4321-2 ####[facility]ORYCLIA [id number] [address] [place] CBC panel Auto (Bld)on 04-19 Erythrocyte distribution width (RBC) [Ratio] 13.2 % Normal 11.5-15.0 [facility] Comment on above: Order Comment: Speci men Type: BLOOD SPECIMENOrdering Facility: [facility] Address: [address] [place] [address] Performed By: #### 5 8410-2, 45377 ####[facility]ORYCLIA [id number] [place] [address] [place] Hematocrit (Bld) [Volume fraction] 34.6 % Low 39.0-51.0 [facility] Comment on above: Order Comment: Speci men Type: BLOOD SPECIMENOrdering Facility: [facility] Address: [address] [place] [address] Performed By: #### 5 8410-2, 4537-7 ####[facility]ORYCLIA [id number] [place] [address] [place] Hemoglobin (Bld) [Mass/Vol] 11.4 g/dL Low 13.0-17.0 [facility] Comment on above: Order Comment: Speci men Type: BLOOD SPECIMENOrdering Facility: [facility] Address: [address] [place] [address] Performed By: #### 5 8410-2, 4537-7 ####[facility]ORYCLIA [id number] [address] [place] MCH (RBC) [Entitic mass] 29.5 pg Normal 26.0-34.0 [facility] Comment on above: Order Comment: Speci men Type: BLOOD SPECIMENOrdering Facility: [facility] Address: [address] [place] [address] Performed By: #### 5 8410-2, 4537-7 ####[facility]ORYCLIA [id number] [place] [address] [place] MCHC (RBC) [Mass/Vol] 32.9 g/dL Normal 30.5-36.0 [facility] Comment on above: Order Comment: Speci men Type: BLOOD SPECIMENOrdering Facility: [facility] Address: [address] [place] [address] Performed By: #### 5 8410-2, 4537-7 ####[facility]ORYCLIA [id number] [place] [address] [place] MCV (RBC) [Entitic vol] 89.4 fL Normal 80.0-100.0 [facility] Comment on above: Order Comment: Speci men Type: BLOOD SPECIMENOrdering Facility: [facility] Address: [address] [place] [address] Performed By: #### 5 8410-2, 4537-7 ####[facility]ORYCLIA [id number] [place] [id number] [place] Nucleated RBC (Bld) [#/Vol] 10*3/uL Normal <0.01 [facility] Comment on above: Order Comment: Speci men Type: BLOOD SPECIMENOrdering Facility: [facility] Address: [address] [place] [address] Performed By: #### 5 8410-2, 4537-7 ####[facility]ORYCLIA [id number] [place] [id number] [place] Platelet mean volume (Bld) [Entitic vol] 8.4 fL Low 9.0-12.7 [facility] Comment on above: Order Comment: Speci men Type: BLOOD SPECIMENOrdering Facility: [facility] Address: [address] [place] [address] Performed By: #### 5 8410-2, 453-7 ####[facility]ORYCLIA [id number] [place] [address] [place] Platelets (Bld) [#/Vol] 259 10*3/uL Normal 150-400 [facility] Comment on above: Order Comment: Speci men Type: BLOOD SPECIMENOrdering Facility: [facility] Address: [address] [place] [address] Performed By: #### 5 8410-2, 4537-7 ####[facility]ORYCLIA [id number] [place] [address] [place] RBC (Bld) [#/Vol] 3.87 10*6/uL Low 4.20-6.00 [facility] Comment on above: Order Comment: Speci men Type: BLOOD SPECIMENOrdering Facility: [facility] Address: [address] [place] [address] Performed By: #### 5 8410-2, 4537-7 ####[facility]ORYCLIA [id number] [place] [id number] [place] [facility] WBC (Bld) [#/Vol] 6.48 10*3/uL Normal 3.70-11.00 [facility] Comment on above: Order Comment: Speci men Type: BLOOD SPECIMENOrdering Facility: [facility] Address: [address] [place] [address] Performed By: #### 5 8410-2, 4537-7 ####[facility]ORYCLIA [id number] [place] [id number] [place] ESR Westergren method (Bld) [Velocity]on 04-19-2023 ESR (Bld) [Velocity] 15 mm/h Normal 0-20 [facility] Comment on above: Order Comment: Speci men Type: BLOOD SPECIMENOrdering Facility: [facility] Address: [address] [place] [address] Performed By: #### 5 8410-2, 4537-7 ####[facility]ORYCLIA [id number] [place] [id number] [facility] THERAPY NTon 04-19-2023 THERAPY NT HNO ID: [id number] Author: Denisse Benitez, OTR/L Service: Occupational Therapy Author Type: Occupational Therapist Type: Therapy (PT/OT/Speech/Resp) Filed: 04/19/2023 3:17 PM Note Text: Occupational Therapy Evaluation SERVICE DATE: 04/19/2023 SERVICE TIME: 1040 to 1056 ROOM: [id number] Recommended Discharge Disposition: Home Recommended Discharge Disposition Comments: Pt safe to return home from an OT standpoint at this time and has 24/7 assist from for assist as needed to maintain safe RUE precautions with all tasks. Anticipated Discharge Needs: Physical Assist at Home Physical Assist at Home for: Transportation, Shopping, Laundry, Cleaning Recommended Discharge Equipment: (pt has what needs for safe return home) OT 6 Clicks Score: 18 Precautions/Activity Restrictions: Weight Bearing Restrictions, Sling Precaution/Activity Restriction Comments: RUE sling, okay for R hand and wrist ROM Extremity With Weight Bearing Restricted: Right Upper Extremity Right Upper Extremity Weight Bearing Status: NWB Current Hospital Course: s/p I AND D right elbow bursa by on 04/17/23 for olecranon osteomylitis; PICC line needed Reason for Hospital Admission: fell out of the back of a truck and he scraped his arm Relevant Past Medical History: DM Assessment comments: Pt tolerated OT eval fairly well. He was pleasant and cooperative, motivated to particiapte. at bedside supportive and attentive to education. Pt demod no physical assist with tasks and was educated on safe RUE precautions for safe ADL completion. He requires supervision and is safe to return home at this time from an OT standpoint and does not require continued acute care OT services. Home Environment Patient Lives With: Family, Other: See Comment Comments: and SONIA and 2 adult children. Assistance Available: 24-Hour Entry To Home: Stairs, With Rail Number Of Stairs Into Home: 3 Number Of Stairs To Bed/Bath: 12 Stairs to Bed/Bath with: Unilateral Rail Tub/Shower Type: Half bath on first. Full bath on second; tub shower combo Laundry: first floor, to complete Equipment Owned: Cane, Walker- Wheeled, Shower Chair Prior Functional Level: Within Functional Limits Prior Functional Level Comments: Pt reports he was ind with all ADLs, shares IADLs with and denies use of AD. 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 Baseline Cognition: Oriented to self, Oriented to place, Oriented to time, Oriented to situation CURRENT FUNCTIONAL STATUS: Most recent performance Current Activities of Daily Living Assist Level Additional Information Feeding Set Up Grooming Supervision Bathing Upper Body Supervision Bathing Lower Body Supervision Dressing Upper Body Supervision Dressing Lower Body Supervision Toileting Supervision Instrumental Activities of Daily Living Assist Level Additional Information Meal/Beverage Prep Cleaning Laundry Medication Management with Strategies Functional Mobility Assist Level Additional Information Rolling Supine to Sit Modified Independent Sit to Supine Scooting Sit to Stand Modified Independent, Additional Information Stand to Sit Bed to Chair Modified Independent Stepping (none) Toilet/Commode Modified Independent Shower Functional Mobility Modified Independent, Additional Information None Blank parisi indicate activity not attempted Hand Dominance: Right Range of Motion: ROM Limitation Comments ROM Limitation Comments: LUE: WFL, RUE: wrist and hand ROM WFL, no elbow ROM at this time Strength: Strength Limitation Comments Strength Limitation Comments: LUE 5/5, RUE: MMT NT Balance: Static Sitting, Dynamic Sitting, Static Standing, Dynamic Standing Static Sitting Balance: Normal Patient able to maintain steady balance without handhold support Dynamic Sitting Balance: Normal Patient accepts maximal challenge and can shift weight easily within full range in all directions Static Standing Balance: Normal Patient able to maintain steady balance without handhold support Dynamic Standing Balance: Normal Patient accepts maximal challenge and can shift weight easily within full range in all directions Goals for Plan of Care: Patient/Caregiver Goals: Participate in meaningful activities Patient will be discontinued from Occupational Therapy when no further skilled needs are identified in this setting. PLAN: OT Frequency: Discontinue Therapy Services Reasons Therapy Services Discontinued: No skilled needs, Independent in all functional mobility Plan of Care developed with: Patient TREATMENT INTERVENTIONS: Therapy Diagnosis: No Skilled Need Interventions Provided: Evaluation $ Evaluation - Low (26124) Billed Units: 1 unit Skilled Treatment Time (minutes): 16 Please see discipline specific clinical documentation flowsheet for complete details for this therapy evaluation/treatment. SIGNATURE: Denisse Benitez, OTR/L PATIENT NA (more content not included)... Normal [facility] Basic metabolic 2000 panelon 04-18-2023 Anion gap [Moles/Vol] 9 mmol/L Normal -16 [facility] Comment on above: Order Comment: Speci men Type: BLOOD SPECIMENOrdering Facility: [facility] Address: [address] [place] [address] Performed By: #### 2 4321-2 ####[facility]ATORYCLIA [id number] [place] [address] [place] Calcium [Mass/Vol] 8.6 mg/dL Normal 8.5-10.5 [facility] Comment on above: Order Comment: Speci men Type: BLOOD SPECIMENOrdering Facility: [facility] Address: [address] [place] [address] Performed By: #### 2 4321-2 ####[facility]ORYCLIA [id number] [place] [address] [place] Chloride [Moles/Vol] 108 mmol/L High 98-107 [facility] Comment on above: Order Comment: Speci men Type: BLOOD SPECIMENOrdering Facility: [facility] Address: [address] [place] [address] Performed By: #### 2 4321-2 ####[facility]ORYCLIA [id number] [place] [id number] [place] CO2 [Moles/Vol] 24 mmol/L Normal 21-32 [facility] Comment on above: Order Comment: Speci men Type: BLOOD SPECIMENOrdering Facility: [facility] Address: [address] [place] [address] Performed By: #### 2 4321-2 ####[facility]ORYCLIA [id number] [address] [place] Creatinine [Mass/Vol] 0.98 mg/dL Normal 0.50-1.40 [facility] Comment on above: Order Comment: Speci men Type: BLOOD SPECIMENOrdering Facility: [facility] Address: [address] [place] [address] Result Comment: Varsha ents receiving either N-Acetylcysteine (NAC) or Metamizole prior to venipuncture, may have falsely depressed results. Performed By: #### 2 4321-2 ####[facility]ORYCLIA [id number] [address] Creatinine and Glomerular filtration rate.predicted panel (S/P/Bld) 86 mL/min/1.73m??? Normal >=60 [facility] Comment on above: Order Comment: Speci men Type: BLOOD SPECIMENOrdering Facility: [facility] Address: [address] [place] [address] Result Comment: Tammie mated Glomerular Filtration Rate (eGFR) is calculated using the 2020 CKD-EPI creatinine equation. This equation utilizes serum creatinine, sex, and age as parameters. The creatinine assay has traceable calibration to isotope dilution-mass spectrometry. Refer to KDIGO guidelines for clinical interpretation. In patients with unstable renal function, e.g. those with acute kidney injury, the eGFR may not accurately reflect actual GFR. Performed By: #### 2 4321-2 ####[facility]ORYCLIA [id number] [place] [address] [place] Glucose [Mass/Vol] 169 mg/dL High 70-100 [facility] Comment on above: Order Comment: Speci men Type: BLOOD SPECIMENOrdering Facility: [facility] Address: [address] [place] [address] Result Comment: The [place] [employer] (ADA) provides guidance for cutoff values for fasting glucose and random glucose. The ADA defines fasting as no caloric intake for at least 8 hours. Fasting plasma glucose results between 100 to 125 mg/dL indicate increased risk for diabetes (prediabetes). Fasting plasma glucose results greater than or equal to 126 mg/dL meet the criteria for diagnosis of diabetes. In the absence of unequivocal hyperglycemia, results should be confirmed by repeat testing. In a patient with classic symptoms of hyperglycemia or hyperglycemic crisis, random plasma glucose results greater than or equal to 200 mg/dL meet the criteria for diagnosis of diabetes. Reference: Standards of Medical Care in Diabetes 2016, [place] [employer]. Diabetes Care. 2016.39(Suppl 1). Results may be falsely elevated after the administration of Sulfapyridine. Results may be falsely depressed after the administration of Sulfasalazine. Performed By: #### 2 4321-2 ####[facility]ORYCLIA [id number] [place] [address] [place] Potassium [Moles/Vol] 4.2 mmol/L Normal 3.5-5.1 [facility] Comment on above: Order Comment: Jane garcia Type: BLOOD SPECIMENOrdering Facility: [facility] Address: [address] [place] [address] Performed By: #### 2 4321-2 ####[facility]ORYCLIA [id number] [place] [address] [place] Sodium [Moles/Vol] 141 mmol/L Normal 136-145 [facility] Comment on above: Order Comment: Zii men Type: BLOOD SPECIMENOrdering Facility: [facility] Address: [address] [place] [address] Performed By: #### 2 4321-2 ####[facility]ORYCLIA [id number] [place] [address] [place] Urea nitrogen [Mass/Vol] 17 mg/dL Normal 7- [facility] Comment on above: Order Comment: Speci men Type: BLOOD SPECIMENOrdering Facility: [facility] Address: [address] [place] [address] Performed By: #### 2 4321-2 ####[facility]ORYCLIA [id number] [place] [id number] [place] CBC W Auto Differential pane l (Bld)on 04-18-2023 Basophils (Bld) [#/Vol] 0.03 10*3/uL Normal <0.11 [facility] Comment on above: Order Comment: Speci men Type: BLOOD SPECIMENOrdering Facility: [facility] Address: [address] [place] [address] Performed By: #### 5 7021-8 ####[facility]ORYCLIA [id number] [place] [address] [place] Basophils/100 WBC (Bld) 0.3 % Normal [facility] Comment on above: Order Comment: Speci men Type: BLOOD SPECIMENOrdering Facility: [facility] Address: [address] [place] [address] Performed By: #### 5 7021-8 ####[facility]ORYCLIA [id number] [place] [address] [place] Differential cell count method Nom (Bld) Auto Normal [facility] Comment on above: Order Comment: Speci men Type: BLOOD SPECIMENOrdering Facility: [facility] Address: [address] [place] [address] Performed By: #### 5 7021-8 ####[facility]ORYCLIA [id number] [place] [address] [place] Eosinophils (Bld) [#/Vol] 0.10 10*3/uL Normal <0.46 [facility] Comment on above: Order Comment: Speci men Type: BLOOD SPECIMENOrdering Facility: [facility] Address: [address] [place] [address] Performed By: #### 5 7021-8 ####[facility]ORYCLIA [id number] [place] [address] [place] Eosinophils/100 WBC (Bld) 0.9 % Normal [facility] Comment on above: Order Comment: Speci men Type: BLOOD SPECIMENOrdering Facility: [facility] Address: [address] [place] [address] Performed By: #### 5 7021-8 ####[facility]ORYCLIA [id number] [place] [address] [place] Erythrocyte distribution width (RBC) [Ratio] 13.1 % Normal 11.5-15.0 [facility] Comment on above: Order Comment: Speci men Type: BLOOD SPECIMENOrdering Facility: [facility] Address: [address] [place] [address] Performed By: #### 5 7021-8 ####[facility]ORYCLIA [id number] [address] [place] Hematocrit (Bld) [Volume fraction] 32.3 % Low 39.0-51.0 [facility] Comment on above: Order Comment: Speci men Type: BLOOD SPECIMENOrdering Facility: [facility] Address: [address] [place] [address] Performed By: #### 5 7021-8 ####[facility]ORYCLIA [id number] [place] [address] [place] Hemoglobin (Bld) [Mass/Vol] 10.7 g/dL Low 13.0-17.0 [facility] Comment on above: Order Comment: Speci men Type: BLOOD SPECIMENOrdering Facility: [facility] Address: [address] [place] [address] Performed By: #### 5 7021-8 ####[facility]ORYCLIA [id number] [place] [address] [place] Immature granulocytes (Bld) [#/Vol] 0.03 10*3/uL Normal <0.10 [facility] Comment on above: Order Comment: Speci men Type: BLOOD SPECIMENOrdering Facility: [facility] Address: [address] [place] [address] Performed By: #### 5 7021-8 ####[facility]ORYCLIA [id number] [address] [place] Immature granulocytes/100 WBC (Bld) 0.3 % Normal [facility] Comment on above: Order Comment: Speci men Type: BLOOD SPECIMENOrdering Facility: [facility] Address: [address] [place] [address] Performed By: #### 5 7021-8 ####[facility]ORYCLIA [id number] [place] [address] [place] Lymphocytes (Bld) [#/Vol] 0.66 10*3/uL Low 1.00-4.00 [facility] Comment on above: Order Comment: Speci men Type: BLOOD SPECIMENOrdering Facility: [facility] Address: [address] [place] [address] Performed By: #### 5 7021-8 ####[facility]ORYCLIA [id number] [address] [place] Lymphocytes/100 WBC (Bld) 6.2 % Normal [facility] Comment on above: Order Comment: Speci men Type: BLOOD SPECIMENOrdering Facility: [facility] Address: [address] [place] [address] Performed By: #### 5 7021-8 ####[facility]ORYCLIA [id number] [place] [address] [place] MCH (RBC) [Entitic mass] 29.7 pg Normal 26.0-34.0 [facility] Comment on above: Order Comment: Speci men Type: BLOOD SPECIMENOrdering Facility: [facility] Address: [address] [place] [address] Performed By: #### 5 7021-8 ####[facility]ORYCLIA [id number] [place] [address] [place] MCHC (RBC) [Mass/Vol] 33.1 g/dL Normal 30.5-36.0 [facility] Comment on above: Order Comment: Speci men Type: BLOOD SPECIMENOrdering Facility: [facility] Address: [address] [place] [address] Performed By: #### 5 7021-8 ####[facility]ORYCLIA [id number] [place] [address] [place] MCV (RBC) [Entitic vol] 89.7 fL Normal 80.0-100.0 [facility] Comment on above: Order Comment: Speci men Type: BLOOD SPECIMENOrdering Facility: [facility] Address: [address] [place] [address] Performed By: #### 5 7021-8 ####[facility]ORYCLIA [id number] [place] [address] [place] Monocytes (Bld) [#/Vol] 0.57 10*3/uL Normal <0.87 [facility] Comment on above: Order Comment: Speci men Type: BLOOD SPECIMENOrdering Facility: [facility] Address: [address] [place] [address] Performed By: #### 5 7021-8 ####[facility]ORYCLIA [id number] [address] [place] Monocytes/100 WBC (Bld) 5.3 % Normal [facility] Comment on above: Order Comment: Speci men Type: BLOOD SPECIMENOrdering Facility: [facility] Address: [address] [place] [address] Performed By: #### 5 7021-8 ####[facility]ORYCLIA [id number] [place] [address] [place] Neutrophils (Bld) [#/Vol] 9.29 10*3/uL High 1.45-7.50 [facility] Comment on above: Order Comment: Speci men Type: BLOOD SPECIMENOrdering Facility: [facility] Address: [address] [place] [address] Performed By: #### 5 7021-8 ####[facility]ORYCLIA [id number] [place] [address] [place] Neutrophils/100 WBC (Bld) 87.0 % Normal [facility] Comment on above: Order Comment: Speci men Type: BLOOD SPECIMENOrdering Facility: [facility] Address: [address] [place] [address] Performed By: #### 5 7021-8 ####[facility]ORYCLIA [id number] [place] [id number] [place] Nucleated RBC (Bld) [#/Vol] 10*3/uL Normal <0.01 [facility] Comment on above: Order Comment: Speci men Type: BLOOD SPECIMENOrdering Facility: [facility] Address: [address] [place] [address] Performed By: #### 5 7021-8 ####[facility]ORYCLIA [id number] [address] [place] Nucleated RBC/100 WBC (Bld) [Ratio] 0.0 /100 WBC Normal [facility] Comment on above: Order Comment: Speci men Type: BLOOD SPECIMENOrdering Facility: [facility] Address: [address] [place] [address] Performed By: #### 5 7021-8 ####[facility]ORYCLIA [id number] [place] [address] [place] Platelet mean volume (Bld) [Entitic vol] 8.7 fL Low 9.0-12.7 [facility] Comment on above: Order Comment: Speci men Type: BLOOD SPECIMENOrdering Facility: [facility] Address: [address] [place] [address] Performed By: #### 5 7021-8 ####[facility]ORYCLIA [id number] [place] [address] [place] Platelets (Bld) [#/Vol] 257 10*3/uL Normal 150-400 [facility] Comment on above: Order Comment: Speci men Type: BLOOD SPECIMENOrdering Facility: [facility] Address: [address] [place] [address] Performed By: #### 5 7021-8 ####[facility]ORYCLIA [id number] [place] [address] [place] [facility] [place] RBC (Bld) [#/Vol] 3.60 10*6/uL Low 4.20-6.00 [facility] Comment on above: Order Comment: Jane jose Type: BLOOD SPECIMENOrdering Facility: [facility] Address: [address] [place] [address] Performed By: #### 5 7021-8 ####[facility]ORYCLIA [id number] [address] OF [facility] WBC (Bld) [#/Vol] 10.68 10*3/uL Normal 3.70-11.00 [facility] Comment on above: Order Comment: Jane garcia Type: BLOOD SPECIMENOrdering Facility: [facility] Address: [address] [place] [address] Performed By: #### 5 7021-8 ####[facility]ORYCLIA [id number] [address] OF [facility] CNDSon 04-18-2023 CNDS HNO ID: [id number] Author: Violet Torres PA-C Service: Orthopaedic Surgery Author Type: Physician Staff Reporter Type: Discharge Summary Filed: 05/01/2023 8:52 AM Note Text: Attestation signed by Betsy Villafuerte DO at 05/01/2023 1:11 PM I agree with TEX note ORTHOPEDIC SURGERY DISCHARGE SUMMARY ADMISSION DATE: 04/17/2023 DISCHARGE DATE: 04/22/2023 Attending Physician: Betsy Villafuerte DO Reason for Hospitalization: IV antibiotics and infectious disease consult status post IANDD Admitting Diagnosis: infected right olecranon bursa Discharge Diagnosis: same, osteomyelitis Additional Diagnoses: ACTIVE PROBLEM LIST Preop Testing Infected Olecranon Bursa, Right Surgeries During Hospitalization: Procedure(s) (LRB): INCISION AND DRAINAGE ELBOW BURSA (Right) Procedures During Hospitalization: PICC line placement Consultations: Physical Therapy Case Management Infectious Disease Internal Medicine Hospital Course: The patient is a 63 year old male who has been followed by Betsy Pritchett DO, MD in clinic for infected right olecranon bursitis. It was determined he would benefit from surgery. The procedure, its risks, benefits, and potential complications were discussed in detail with the patient prior to surgery. Understanding of all topics was conveyed by the patient, and consent was given for surgery. The patient was electively admitted to the [facility] on 04/17/2023. Surgery was scheduled and on 04/17/2023 he underwent a Procedure(s) (LRB): INCISION AND DRAINAGE ELBOW BURSA (Right) with GETA. Findings consistent with chronic osteomyelitis were noted at the time of the operation. The procedure was tolerated well and he was sent to the post operative recovery room in stable condition, where he also did well. He was subsequently sent to his hospital room for postoperative management. Once on the floor his postoperative course was unremarkable and he did well. His diet was advanced which he tolerated. His pain was well controlled on oral medication alone prior to discharge. He worked with Physical and Occupational Therapy starting on POD#1 who recommended he be discharged home. Infectious disease was consulted and intra-operative cultures grew Staph. A PICC line was placed and outpatient IV antibiotics were initiated. His dressing remained clean dry and intact throughout his stay. He remained afebrile with stable vital signs throughout his stay. He was stable for discharge to home on POD#5. Complete and comprehensive discharge instructions were provided to the patient as well as necessary prescriptions. The patient had no further questions and was advised to call with any questions, concerns, or problems. Patient was hemodynamically stable postoperatively. Relevant labs included: Hemoglobin (g/dL) Date Value 04/18/2023 10.7 (L) 04/17/2023 11.4 (L) 04/17/2023 12.3 (L) Hematocrit (%) Date Value 04/18/2023 32.3 (L) 04/17/2023 34.1 (L) Discharge Antibiotics: Antibiotics were continued given concern for chronic infection Transfers: PACU and then to the hospital surgical floor when PACU criteria was met. DVT Prophylaxis: Sequential Compression Devices Pain Control: Oral narcotics Complications: Had a PICC line inserted for iv antibiotic treatment, infectious disease was consulted to assist with management. Patient Condition @ Discharge: Stable Discharge Disposition: Home with Home Health Other Information: None Discharge Activity/Weight Bearing Status: Weight bearing as tolerated, avoid heavy lifting, pushing, pulling with operative extremity The patient was instructed to follow-up in 10-14 days. No future appointments. Discharge Medications: Medication List START taking these medications ceFAZolin 2 gram/100 mL in dextrose (iso-osmotic) Commonly known as: ANCEF Inject 100 mL intravenously every 8 hours. Pt to follow with Dr. Jaquez for IV antibiotics. Q Saturday CBC, CMP, ESR, CRP while on IV antibiotics. Fax lab results to [phone] (attn Dr. Jaquez). CONTINUE taking these medications aspirin, enteric coated 81 mg EC tablet Commonly known as: ASPIRIN, ENTERIC COATED FISH OIL-DHA-EPA ORAL FLONASE NASAL lisinopril 10 mg tablet Commonly known as: ZESTRIL metFORMIN 1,000 mg tablet Commonly known as: GLUCOPHAGE MULTIVITAMIN 50 PLUS ORAL pioglitazone 30 mg tablet Commonly known as: ACTOS PROTONIX 40 mg tablet Generic drug: pantoprazole DR PATTERSON 7 mg tablet Generic drug: semaglutide WELLBUTRIN ORAL ZyrTEC 10 mg tablet Generic drug: cetirizine ASK your doctor about these medications oxyCODONE-acetaminoph en 5-325 mg tablet Commonly known as: PERCOCET Take 1 tablet by mouth every 6 hours as needed for up t (more content not included)... [facility] CONSULTon 04-18-2023 CONSULT HNO ID: [id number] Author: Telma Jaquez MD Service: Infectious Disease Author Type: Physician Type: Consults Filed: 04/18/2023 10:52 AM Note Text: INFECTIOUS DISEASE INITIAL CONSULT NOTE SERVICE DATE: 04/18/2023 SERVICE TIME: 10:49 AM REASON FOR CONSULT: Right olecranon infection with concern of contiguous osteomyelitis Subjective Patient is seen at the request of Betsy Pritchett DO for my opinion regarding right holocranial infection with concern of contiguous osteomyelitis. My final recommendations will be communicated back to the requesting physician by way of copy of this note or shared electronic medical record. HPI: Aurelio Rodriguez who is a 63 year old male past medical history of type 2 diabetes mellitus since 2004, hypertension who had a traumatic fall on February 25 where he fell back and injured his right elbow at that time. He subsequently saw medical attention few weeks later by his primary care physician for his routine doctor's appointment and had a work-up including films. He was then referred to orthopedic surgeon and the patient underwent a diagnostic MRI. Patient was taken to the operating room yesterday for irrigation debridement of the right elbow and obtaining intraoperative cultures. Patient denies any fevers or chills prior to coming to the hospital. No recent antibiotic exposure in the outpatient setting. Denies any drainage from the right elbow throughout this time. PAST MEDICAL HISTORY Diagnosis Date Acid reflux Essential hypertension Inguinal hernia Seasonal allergies Type 2 diabetes mellitus (HCC) PAST SURGICAL HISTORY Procedure Laterality Date REMV CATARACT EXTRACAP,INSERT LENS REPAIR INCISIONAL HERNIA,REDUCIBLE VASECTOMY Social History Tobacco Use Smoking status: Never Smokeless tobacco: Never Substance Use Topics Alcohol use: Not Currently Drug use: Never No family history on file. There is no immunization history on file for this patient. Current Facility-Administered Medications Medication Dose Route Frequency acetaminophen 1,000 mg tab(s) (TYLENOL) 1,000 mg ORAL q 8 HR dextrose 40 % 15 g 15 g ORAL PRN Or glucagon 1 mg injection 1 mg INTRAMUSCULAR PRN Or dextrose 10% iv bolus 12.5 g INTRAVENOUS PRN HYDROmorphone 0.5 mg injection (DILAUDID) 0.5 mg INTRAVENOUS q 3 H PRN insulin lispro injection (rapid acting) (HumaLOG) SUBCUTANEOUS w MEALS insulin lispro injection (rapid acting) (HumaLOG) SUBCUTANEOUS AT BEDTIME lisinopril 10 mg tab(s) (ZESTRIL) 10 mg ORAL DAILY NaCl 0.9% iv flush bag 20 mL INTRAVENOUS PRN NaCl 0.9% iv infusion 75 mL/hr INTRAVENOUS CONTINUOUS ondansetron 4 mg tab(s) (ZOFRAN) 4 mg ORAL q 6 H PRN Or ondansetron (PF) 4 mg injection (ZOFRAN) 4 mg INTRAVENOUS q 6 H PRN oxyCODONE IR 5-10 mg tab(s) (ROXICODONE) 5-10 mg ORAL q [address] 40 mg tab(s) (PROTONIX) 40 mg ORAL DAILY (6 AM) traMADol 50 mg tab(s) (ULTRAM) 50 mg ORAL q 6 H PRN vancomycin 750 mg in D5W 250 mL Vial-Bag (VANCOCIN) 0.75 g INTRAVENOUS q 12 HR vancomycin dosing and monitoring per pharmacy OTHER As Directed Active Antimicrobials (From admission, onward) Start Stop 04/17/231999 vancomycin 750 mg in D5W 250 mL Vial-Bag (VANCOCIN) 0.75 g, INTRAVENOUS, EVERY 12 HOURS -- 04/17/231929 vancomycin dosing and monitoring per pharmacy OTHER, DIRECTED -- ALLERGIES Allergen Reactions Erythromycin Other: See Comments Red eyes REVIEW OF SYSTEMS: See HPI As stated in history of present illness others negative Objective PHYSICAL EXAM: BP 110/65 Pulse 75 Temp (Src) 98.5 (Oral) Resp 15 Ht 6' 0 (1.83m) Wt 141 lb (64.0kg) SpO2 94% BMI 19.12 kg/(m2). O2 Therapy: Room Air Alert responsive does not appear toxic lungs are clear heart exam S1-S2 abdomen soft right arm postop dressings are in place Lines, Drains, and Airways Line Duration Peripheral 04/17/23 1519 Left Hand 20 Gauge <1 day DATA: Diagnostic tests reviewed for today's visit: CBC, Coags, BMP, Mg, Phos Recent Labs 04/18/23 0513 04/17/23 1917 04/17/23 1521 WBC 10.68 6.69 -- HB 10.7* 11.4* 12.3* HCT 32.3* 34.1* -- PLT 257 289 -- NA 141 -- 139 K 4.2 -- 4.4 CHLOR 108* -- 107 CO2 24 -- 25 BUN 17 -- 20 CREAT 0.98 -- 1.03 GLUC 169* -- 152* CA 8.6 -- 9.4 Liver Function, Amylase, AND Lipase Impression/Recommenda tions Aurelio Rodriguez is a 63 year old male right elbow trauma with concern of olecranon osteomyelitis secondary to the trauma. Operative cultures early on appears to be Staphylococcus aureus. We will await the formal identification and sensitivities, will empirically treat with parenteral vancomycin and closely follow his microbiology data and clinical course. Please feel free to call or page us with concerns or questions. Thank you for allowing us to partake in the care of your patient. SIGNATURE: Telma Jaquez MD PATIENT NAME: Aurelio HALEY (more content not included)... [facility] THERAPY NTon 04-18-2023 THERAPY NT HNO ID: [id number] Author: Beata Gregg, PT, DPT Service: Physical Therapy Author Type: Physical Therapist Type: Therapy (PT/OT/Speech/Resp) Filed: 04/18/2023 11:13 AM Note Text: Physical Therapy Evaluation SERVICE DATE: 04/18/2023 SERVICE TIME: 1051 to 1110 ROOM: [place] [address] Total Joint Replacement Discharge Readiness: Cleared from Physical Therapy Recommended Discharge Disposition: Home Recommended Discharge Equipment: No equipment needs anticipated PT 6 Clicks Score: 24 Precautions/Activity Restrictions: Weight Bearing Restrictions, Sling Precaution/Activity Restriction Comments: Maintain splint to operative extremity. Okay for patient to hand/finger range of motion as tolerated Extremity With Weight Bearing Restricted: Right Upper Extremity Right Upper Extremity Weight Bearing Status: NWB Current Hospital Course: s/p I AND D right elbow bursa Reason for Hospital Admission: Right olecranon osteomyelitis Response to Therapy Interventions: Good Participation in Activities Assessment Comments: Pt tolerated PT eval well. Pt educated on NWB RUE, sling RUE, and safety with functional mobility Pt is supv. Recommend home with family Treatment Interventions: Education Home Environment Patient Lives With: Family, Other: See Comment Comments: and SONIA and 2 adult children. Assistance Available: 24-Hour Entry To Home: Stairs, With Rail (2 level) Number Of Stairs Into Home: 3 Number Of Stairs To Bed/Bath: 12 Stairs to Bed/Bath with: Unilateral Rail Tub/Shower Type: Half bath on first. Full bath on second. 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 Falls noted. Indep with ADL. Shares cooking and cleaning with family. Drive. Work- Drive CURRENT FUNCTIONAL STATUS: Most recent performance Current Functional Mobility Assist Level Additional Information Rolling Supine to Sit Supervision Sit to Supine Supervision Scooting Sit to Stand Supervision Stand to Sit Supervision Bed to Chair Toilet/Commode Gait Supervision Gait Device: None Gait Distance (feet): 250 Stairs Supervision Stairs Device: Rail Number of Stairs: 5 Curb Step Car Transfer Supervision Blank parisi indicate activity not attempted JH-HLM: 8: Walk 250 feet or more Learning/Educational Needs: Discharge Plan Goals for Plan of Care: Goals: Patient will demonstrate progress to optimize functional mobility, maximize activity tolerance and endurance to maximize function upon discharge. Progress Toward Goals: Progressing as expected Rehab Potential: Fair Patient will be discontinued from Physical Therapy when no further skilled needs are identified in this setting. PLAN: PT Frequency: Discontinue Therapy Services Reasons Therapy Services Discontinued: No skilled needs Plan of Care developed with: Patient TREATMENT INTERVENTIONS: Therapy Diagnosis: No Skilled Need Interventions Provided: Evaluation $ Evaluation-Low (58561) Billed Units: 1 unit Training AND Education Provided in: Advanced Balance Activities The Following Therapeutic Skills Were Used: Cues for Sequencing/Proper Technique for Activity Skilled Treatment Time (minutes): 19 Please see discipline specific clinical documentation flowsheet for complete details for this therapy evaluation/treatment. SIGNATURE: Beata Gregg PT, DPT PATIENT NAME: Aurelio Rodriguez DATE: April 18, 2023 TIME: 11:13 AM Normal [facility] ANES POSTPROC EVALon 023 ANES POSTPROC EVAL HNO ID: [id number] Author: Cesar Lambert DO Service: Anesthesiology Author Type: Anesthesiologist Type: Anesthesia Postprocedure Evaluation Filed: 04/17/2023 5:22 PM Note Text: POST ANESTHESIA EVALUATION NOTE : 1960 Procedure Summary Date: 04/17/23 Room / Location: OR 14 / OR Anesthesia Start: 1525 Anesthesia Stop: 163 Procedure: INCISION AND DRAINAGE ELBOW BURSA (Right: Elbow) Diagnosis: Other infective bursitis, right elbow (Other infective bursitis, right elbow [M71.121]) Surgeons: Betsy Villafuerte DO Responsible Provider: Cesar Lambert DO Anesthesia Type: general ASA Status: 2 Anesthesia Type: general Airway Type: LMA Last Vitals Vitals Value Taken Time BP 130/72 04/17/23 1715 Temp 36.7 ?C (98.1 ?F) 04/17/23 1634 Pulse 67 04/17/23 1720 Resp 16 04/17/23 1715 SpO2 97 % 04/17/23 1720 Vitals shown include unvalidated device data. Post Anesthesia Patient Status Patient Evaluation: PACU. PACU/ICU Patient Condition: stable. Anticipated Disposition: inpatient floor planned admission. Neurological Status: aware and responsive. Pulmonary Status: breathing comfortably on room air Airway Control: returned to baseline unsupported. Cardiovascular Status: stable. Pain Management: clinically adequate Postoperative Hydration: acceptable. Intraoperative Events: no significant anesthesia events Post Operative Nausea/Vomiting Status: no significant post operative nausea or vomiting Recommendation: continue current plan of care. Anesthesia Observations No Documentation SIGNATURE: Cesar Lambert DO PATIENT NAME: Aurelio Rodriguez DATE: April 17, 2023 TIME: 5:22 PM CSN: [id number] [facility] ANES PRE-OPon 04-17-2023 ANES PRE-OP HNO ID: [id number] Author: Lucia Garcia MD Service: Anesthesiology Author Type: Anesthesiologist Type: Anesthesia Preprocedure Evaluation Filed: 04/17/2023 2:49 PM Note Text: ANESTHESIOLOGY DAY OF SURGERY NOTE : 1960 OF note, patient reports that he recently undergone EGD with esophageal dilatation. GERD is well controlled with pantoprazole. Per [facility] note: 63yo slim male, nonsmoker. PMH: HTN, DM2, GERD, depression. On ASA- instructed to verify with Eschbaugh if he needed to hold (per nurses' notes) ? EKG 04/12/23 (unconfirmed): 71bpm, SR ?4:34 PM History Comments Type 2 diabetes mellitus (HCC) Essential hypertension Seasonal allergies Inguinal hernia Acid reflux Pertinent Negatives Comments No pertinent negative medical history recorded Surgical History Current as of 04/17/23 1436 History Comments REPAIR INCISIONAL HERNIA,REDUCIBLE VASECTOMY REMV CATARACT EXTRACAP,INSERT LENS Anesthesia Family History Current as of 04/17/23 1436 No family medical history recorded Substance History Current as of 04/17/23 1436 Smoking Status: Never Smokeless Tobacco Status: Never Alcohol use: Not Currently Drug use: Never No results found for: WBC , RBC , HB , HCT , MCV , MCH , MCHC , RDWCV , PLT , MPV , GLUC , BUN , CREAT , NA , K , CHLOR , CO2 , TPROT , ALB , CA , ALKPHOS , TBILI , AST , ALT , NAYANA , ESRMM , SSA , SSB , CRYO , CRYOQ , RF , AHBSQ , HEPCABEIA URINALYSIS No results found for: PH , SPGR , UGLUC , UBILI , UKET , UHB , UPROT , UROBIL , UWBC , SSA Procedure Information Date/Time: 04/17/23 1625 Procedure: INCISION AND DRAINAGE ELBOW BURSA (Right: Elbow) Location: MR OR 02 / MR OR Surgeons: Betsy Villafuerte, DO Estimated body mass index is 19.01 kg/m? as calculated from the following: Height as of this encounter: 182.9 cm (6'). Weight as of this encounter: 63.6 kg (140 lb 3.2 oz). Most recent hematocrit and potassium results: No results found for this basename: HCT,HEMATOCRIT,K,POTA SSIUM Relevant Problems No relevant active problems I - PHYSICAL EVALUATION AIRWAY Patient intubated: No. Tracheostomy tube not present Mallampati: III. TM distance: >3 FB. Neck ROM: limited flexion and extension. Mouth opening: non-adequate. Short neck: no. Thick neck: no Scanlon present: no DENTAL Dental findings: missing tooth/teeth. Additional exam findings: yes. CARDIOVASCULAR Rhythm: regular Rate: normal Murmur not present. PULMONARY Breath sounds clear to auscultation. Rhonchi not present. ABDOMINAL Abdomen: soft. Bowel sounds: normal. II - ANESTHESIA PLAN ASA Score: 2 Anesthetic Plan: general Airway type: LMA The patient is not a current smoker. NPO Status: adequate Beta Rachell Administration of chronic beta rachell medication not planned. Monitoring Plan Monitoring plan: standard ASA. Post Procedure Analgesic Plan Postoperative analgesic plan: parenteral or oral opioids and multimodal analgesia. Informed Consent Anesthetic risks, benefits, alternatives, personnel and consent discussed: yes. Patient / Responsible Republican agrees to proceed: yes Patient / Surrogate agrees to blood products: blood products not planned DNR status not reviewed with patient and/or family prior to surgery. Significant changes in the patient condition since the History and Physical, not otherwise documented in primary service progress note: no. Potential Anesthesia issues that may suggest increased risk of complications or contraindication to planned procedure: none. Discussed the possibility of lip / dental damage: yes Vitals Value Taken Time BP 129/74 04/17/23 1423 Pulse 78 04/17/23 1423 Resp 18 04/17/23 142 Temp 36.6 ?C (97.9 ?F) 04/17/23 142 SpO2 99 % 04/17/231422 No current facility-administered medications on file as of 04/17/2023. Outpatient Medications as of 04/17/2023 Medication Sig - aspirin, enteric coated (ASPIRIN, ENTERIC COATED) 81 mg EC tablet Take 81 mg by mouth every morning. INSTRUCTED TO CLARIFY WITH DR. VILLAFUERTE. - bupropion HCl (WELLBUTRIN ORAL) Take 150 mg by mouth every morning. - cetirizine (ZYRTEC) 10 mg tablet Take 10 mg by mouth every morning. - FISH OIL-DHA-EPA ORAL Take 2,400 mg by mouth every morning. - fluticasone propionate (FLONASE NASAL) Use 50 mg in the nose every morning. 2 SPRAYS EACH SIDE - lisinopril (ZESTRIL, PRINIVIL) 10 mg tablet Take 10 mg by mouth every morning. - metFORMIN (GLUCOPHAGE) 1,000 mg tablet Take 1,000 mg by mouth twice daily with meals. - multivit with minerals/lutein (MULTIVITAMIN 50 PLUS ORAL) Take by mouth once daily. - pantoprazole DR (PROTONIX) 40 mg tablet Take 40 mg by mouth every morning. - pioglitazone (ACTOS) 30 mg tablet Take 30 mg by mouth daily at bedtime. - semaglutide (RYBELSUS) 7 mg tablet Take 7 mg by (more content not included)... Normal [facility] Bacteria Spec Anaerobe Culto n 04-17-2023 Bacteria identified Anaer cx Nom (Unsp spec) Negative Normal [facility] Comment on above: Performed By: #### 4 3408-4, 635-3 ####[facility] [id number] [place] [address] [place] Bacteria identified Anaer cx Nom (Unsp spec) Negative Normal [facility] Comment on above: Performed By: #### 6 35-3, 6462-6 ####[facility] [id number] [place] [id number] [facility] [place] Bacteria Tiss Culton 023 Bacteria identified Cx Nom (Tiss) ORGANISM ID: 1 Many Staphylococcus aureus Please refer to [id number] collected on 04/17/23 at 1553 for susceptibility. GRAM STAIN: Rare Polymorphonuclear leukocytes No organisms seen Abnormal [facility] Comment on above: Performed By: #### 4 3408-4, 635-3 ####[facility] [id number] [place] [id number] [facility] [place] Bacteria Wnd Culton 04-17-20 23 Bacteria identified Cx Nom (Wound) ORGANISM ID: 1 Few Staphylococcus aureus GRAM STAIN: Moderate Polymorphonuclear leukocytes No organisms seen ORGANISM ID: 1 (STAPHYLOCOCCUS AUREUS) ------ ANTIBIOTIC INTERPRETATION RAFY STATUS REFERENCE RANGE ------ Oxacillin S <=0.25 F Susceptible <=2 , Intermediate >2 , Resistant >2 Oxacillin-susceptible staphylococci are susceptible to other penicilllinase-stable penicillins, beta-lactam/beta-lact amase inhibitor combinations, anti-staphylococcal cephems, and carbapenems. Gentamicin S <=2 F Susceptible <=4 , Intermediate >4 , Resistant >8 Erythromycin R >4 F Susceptible <=0.5 , Intermediate >.5 , Resistant >4 Clindamycin R <=0.5 F This isolate is presumed to be resistant based on detection of inducible Clindamycin resistance. Clindamycin may still be effective in some patients. Trimeth sulfameth S <=1 F Vancomycin S 1 F Susceptible <=2 , Intermediate >2 , Resistant >=16 Rifampin S <=0.5 F Susceptible <=1 , Intermediate >1 , Resistant >2 Rifampin should not be used alone for antimicrobial therapy. Tetracycline S <=0.5 F Susceptible <=4 , Intermediate >4 , Resistant >8 Abnormal [facility] Comment on above: Performed By: #### 6 35-3, 6462-6 ####[facility] [id number] [place] [address] [place] Basic metabolic 2000 panelon 04-17-2023 Anion gap [Moles/Vol] 7 mmol/L Normal 5-16 [facility] Comment on above: Order Comment: Speci men Type: BLOOD SPECIMEN Ordering Facility: [facility] Address: [address] [place] [address] Performed By: #### 2 4321-2 #### [facility] CLIA [id number] [address] [place] [address] [place] Calcium [Mass/Vol] 9.4 mg/dL Normal 8.5-10.5 [facility] Comment on above: Order Comment: Speci men Type: BLOOD SPECIMEN Ordering Facility: [facility] Address: [address] [place] [address] Performed By: #### 2 4321-2 #### [facility] CLIA [id number] [address] [place] [address] [place] Chloride [Moles/Vol] 107 mmol/L Normal 98-107 [facility] Comment on above: Order Comment: Speci men Type: BLOOD SPECIMEN Ordering Facility: [facility] Address: [address] [place] [address] Performed By: #### 2 4321-2 #### [facility] CLIA [id number] [address] [place] [address] [place] CO2 [Moles/Vol] 25 mmol/L Normal 21-32 [facility] Comment on above: Order Comment: Jane garcia Type: BLOOD SPECIMEN Ordering Facility: [facility] Address: [address] [place] [address] Performed By: #### 2 4321-2 #### [facility] CLIA [id number] [address] [place] [address] [place] Creatinine [Mass/Vol] 1.03 mg/dL Normal 0.50-1.40 [facility] Comment on above: Order Comment: Jane garcia Type: BLOOD SPECIMEN Ordering Facility: [facility] Address: [address] [place] [address] Result Comment: Varsha ents receiving either N-Acetylcysteine (NAC) or Metamizole prior to venipuncture, may have falsely depressed results. Performed By: #### 2 4321-2 #### [facility] CLIA [id number] [address] [place] [address] Creatinine and Glomerular filtration rate.predicted panel (S/P/Bld) 81 mL/min/1.73m??? Normal >=60 [facility] Comment on above: Order Comment: Jane garcia Type: BLOOD SPECIMEN Ordering Facility: [facility] Address: [address] [place] [address] Result Comment: Tammie mated Glomerular Filtration Rate (eGFR) is calculated using the 2020 CKD-EPI creatinine equation. This equation utilizes serum creatinine, sex, and age as parameters. The creatinine assay has traceable calibration to isotope dilution-mass spectrometry. Refer to KDIGO guidelines for clinical interpretation. In patients with unstable renal function, e.g. those with acute kidney injury, the eGFR may not accurately reflect actual GFR. Performed By: #### 2 4321-2 #### [facility] CLIA [id number] [address] [place] [address] [place] Glucose [Mass/Vol] 152 mg/dL High 70-100 [facility] Comment on above: Order Comment: Jane garcia Type: BLOOD SPECIMEN Ordering Facility: [facility] Address: [address] [place] [address] Result Comment: The [place] Diabetes [employer] (ADA) provides guidance for cutoff values for fasting glucose and random glucose. The ADA defines fasting as no caloric intake for at least 8 hours. Fasting plasma glucose results between 100 to 125 mg/dL indicate increased risk for diabetes (prediabetes). Fasting plasma glucose results greater than or equal to 126 mg/dL meet the criteria for diagnosis of diabetes. In the absence of unequivocal hyperglycemia, results should be confirmed by repeat testing. In a patient with classic symptoms of hyperglycemia or hyperglycemic crisis, random plasma glucose results greater than or equal to 200 mg/dL meet the criteria for diagnosis of diabetes. Reference: Standards of Medical Care in Diabetes 2016, [place] [employer]. Diabetes Care. 2016.39(Suppl 1). Results may be falsely elevated after the administration of Sulfapyridine. Results may be falsely depressed after the administration of Sulfasalazine. Performed By: #### 2 4321-2 #### [facility] CLIA [id number] [address] [place] [address] [place] Potassium [Moles/Vol] 4.4 mmol/L Normal 3.5-5.1 [facility] Comment on above: Order Comment: Jane garcia Type: BLOOD SPECIMEN Ordering Facility: [facility] Address: [address] [place] [address] Performed By: #### 2 432-2 #### [facility] CLIA [id number] [address] [place] [address] [place] Sodium [Moles/Vol] 139 mmol/L Normal 136-145 [facility] Comment on above: Order Comment: Zii jose Type: BLOOD SPECIMEN Ordering Facility: [facility] Address: [address] [place] [address] Performed By: #### 2 4321-2 #### [facility] CLIA [id number] [address] [place] [address] [place] Urea nitrogen [Mass/Vol] 20 mg/dL Normal 7-26 [facility] Comment on above: Order Comment: Zii jose Type: BLOOD SPECIMEN Ordering Facility: [facility] Address: [address] [place] [address] Performed By: #### 2 1-2 #### [facility] CLIA [id number] [address] [place] [id number] [place] CBC W Auto Differential pane l (Bld)on 04-17-2023 Basophils (Bld) [#/Vol] 0.03 10*3/uL Normal <0.11 [facility] Comment on above: Order Comment: Speci men Type: BLOOD SPECIMENOrdering Facility: [facility] Address: [address] [place] [address] Performed By: #### 5 7021-8 ####[facility] [id number] [place] [address] [place] Basophils/100 WBC (Bld) 0.4 % Normal [facility] Comment on above: Order Comment: Speci men Type: BLOOD SPECIMENOrdering Facility: [facility] Address: [address] [place] [address] Performed By: #### 5 7021-8 ####[facility] [id number] [address] [place] Differential cell count method Nom (Bld) Auto Normal [facility] Comment on above: Order Comment: Speci men Type: BLOOD SPECIMENOrdering Facility: [facility] Address: [address] [place] [address] Performed By: #### 5 7021-8 ####[facility] [id number] [place] [address] [place] Eosinophils (Bld) [#/Vol] 0.30 10*3/uL Normal <0.46 [facility] Comment on above: Order Comment: Speci men Type: BLOOD SPECIMENOrdering Facility: [facility] Address: [address] [place] [address] Performed By: #### 5 7021-8 ####[facility] [id number] [address] [place] Eosinophils/100 WBC (Bld) 4.5 % Normal [facility] Comment on above: Order Comment: Speci men Type: BLOOD SPECIMENOrdering Facility: [facility] Address: [address] [place], [place] [address], [place] [address] Performed By: #### 5 7021-8 ####[facility] [id number] [place] [address] [place] Erythrocyte distribution width (RBC) [Ratio] 13.1 % Normal 11.5-15.0 [facility] Comment on above: Order Comment: Speci men Type: BLOOD SPECIMENOrdering Facility: [facility] Address: [address] [facility] [place] [address] Performed By: #### 5 7021-8 ####[facility]IA [id number] [place] [address] [place] Hematocrit (Bld) [Volume fraction] 34.1 % Low 39.0-51.0 [facility] Comment on above: Order Comment: Speci men Type: BLOOD SPECIMENOrdering Facility: [facility] Address: [address] [facility] [place] [address] Performed By: #### 5 7021-8 ####[facility] [id number] [place] [address] [place] Hemoglobin (Bld) [Mass/Vol] 11.4 g/dL Low 13.0-17.0 [facility] Comment on above: Order Comment: Speci men Type: BLOOD SPECIMENOrdering Facility: [facility] Address: [address] [place] [address] Performed By: #### 5 7021-8 ####[facility] [id number] [place] [address] [place] Immature granulocytes (Bld) [#/Vol] 0.03 10*3/uL Normal <0.10 [facility] Comment on above: Order Comment: Speci men Type: BLOOD SPECIMENOrdering Facility: [facility] Address: [address] [place] [address] Performed By: #### 5 7021-8 ####[facility] [id number] [place] [address] [place] Immature granulocytes/100 WBC (Bld) 0.4 % Normal [facility] Comment on above: Order Comment: Speci men Type: BLOOD SPECIMENOrdering Facility: [facility] Address: [address] [place] [address] Performed By: #### 5 7021-8 ####[facility] [id number] [address] [place] Lymphocytes (Bld) [#/Vol] 0.78 10*3/uL Low 1.00-4.00 [facility] Comment on above: Order Comment: Speci men Type: BLOOD SPECIMENOrdering Facility: [facility] Address: [address] [place] [address] Performed By: #### 5 7021-8 ####[facility] [id number] [address] [place] Lymphocytes/100 WBC (Bld) 11.7 % Normal [facility] Comment on above: Order Comment: Speci men Type: BLOOD SPECIMENOrdering Facility: [facility] Address: [address] [place] [address] Performed By: #### 5 7021-8 ####[facility] [id number] [place] [address] [place] MCH (RBC) [Entitic mass] 29.9 pg Normal 26.0-34.0 [facility] Comment on above: Order Comment: Speci men Type: BLOOD SPECIMENOrdering Facility: [facility] Address: [address] [place] [address] Performed By: #### 5 7021-8 ####[facility] [id number] [address] [place] MCHC (RBC) [Mass/Vol] 33.4 g/dL Normal 30.5-36.0 [facility] Comment on above: Order Comment: Speci men Type: BLOOD SPECIMENOrdering Facility: [facility] Address: [address] [place] [address] Performed By: #### 5 7021-8 ####[facility] [id number] [address] [place] MCV (RBC) [Entitic vol] 89.5 fL Normal 80.0-100.0 [facility] Comment on above: Order Comment: Speci men Type: BLOOD SPECIMENOrdering Facility: [facility] Address: [address] [place] [address] Performed By: #### 5 7021-8 ####[facility] [id number] [place] [address] [place] Monocytes (Bld) [#/Vol] 0.53 10*3/uL Normal <0.87 [facility] Comment on above: Order Comment: Speci men Type: BLOOD SPECIMENOrdering Facility: [facility] Address: [address] [place] [address] Performed By: #### 5 7021-8 ####[facility] [id number] [address] [place] Monocytes/100 WBC (Bld) 7.9 % Normal [facility] Comment on above: Order Comment: Speci men Type: BLOOD SPECIMENOrdering Facility: [facility] [facility] Address: [address] [place] [address] Performed By: #### 5 7021-8 ####[facility] [id number] [place] [address] [place] Neutrophils (Bld) [#/Vol] 5.02 10*3/uL Normal 1.45-7.50 [facility] Comment on above: Order Comment: Speci men Type: BLOOD SPECIMENOrdering Facility: [facility] Address: [address] [place] [address] Performed By: #### 5 7021-8 ####[facility]ORYCL[facility] [id number] [place] [address] [place] Neutrophils/100 WBC (Bld) 75.1 % Normal [facility] Comment on above: Order Comment: Speci men Type: BLOOD SPECIMENOrdering Facility: [facility] Address: [address] [place] [address] Performed By: #### 5 7021-8 ####[facility]ORYCLIA [id number] [place] [id number] [place] Nucleated RBC (Bld) [#/Vol] 10*3/uL Normal <0.01 [facility] Comment on above: Order Comment: Speci men Type: BLOOD SPECIMENOrdering Facility: [facility] Address: [address] [place] [address] Performed By: #### 5 7021-8 ####[facility]ORYCL[facility] [id number] [place] [address] [place] Nucleated RBC/100 WBC (Bld) [Ratio] 0.0 /100 WBC Normal [facility] Comment on above: Order Comment: Speci men Type: BLOOD SPECIMENOrdering Facility: [facility] Address: [address] [place] [address] Performed By: #### 5 7021-8 ####[facility]ORYCLIA [id number] [place] [address] [place] Platelet mean volume (Bld) [Entitic vol] 8.7 fL Low 9.0-12.7 [facility] Comment on above: Order Comment: Speci men Type: BLOOD SPECIMENOrdering Facility: [facility] Address: [address] [place] [address] Performed By: #### 5 7021-8 ####[facility]ORYCLIA [id number] [place] [address] [place] Platelets (Bld) [#/Vol] 289 10*3/uL Normal 150-400 [facility] Comment on above: Order Comment: Speci men Type: BLOOD SPECIMENOrdering Facility: [facility] Address: [address] [place] [address] Performed By: #### 5 7021-8 ####[facility]ORYCLIA [id number] [place] [id number] [place] RBC (Bld) [#/Vol] 3.81 10*6/uL Low 4.20-6.00 [facility] Comment on above: Order Comment: Speci men Type: BLOOD SPECIMENOrdering Facility: [facility] Address: [address] [place] [address] Performed By: #### 5 7021-8 ####[facility]ORYCLIA [id number] [place] [id number] [facility] WBC (Bld) [#/Vol] 6.69 10*3/uL Normal 3.70-11.00 [facility] Comment on above: Order Comment: Speci men Type: BLOOD SPECIMENOrdering Facility: [facility] Address: [address] [place] [id number] Performed By: #### 5 7021-8 ####[facility]ORYCLIA [id number] [place] [id number] [facility] CONSULT PROGon 04-17-2023 CONSULT PROG HNO ID: [id number] Author: Richi Edwards V [facility] Service: Pharmacy Author Type: Pharmacist Type: Consult Progress Note Filed: 04/17/2023 7:20 PM Note Text: PHARMACY VANCOMYCIN DOSING NOTE Patient Name: Aurelio Rodriguez Admission Date: 04/17/2023 Date of Consult: 04/17/2023 Time of Consult: 7:19 PM Indication: Bone AND joint infection Goal Range: 15-20 mcg/mL RECOMMENDATIONS/PLAN: Pharmacy consulted for vancomycin dosing for Aurelio Rodriguez, a 63 year old male. 1. Patient is currently ordered Vancomycin 750 mg IV q12h. Today is day one of therapy. 2. No vancomycin level has been drawn for this dosing regimen. 3. The present dose of vancomycin is the recommended dosage for this patient at this time. Continue therapy as prescribed. 4. The next vancomycin level has been ordered for 04/20/23 (Completed) We will follow patient renal function, vancomycin levels and doses with you during the course of therapy. Additional recommendations will appear in follow up notes. If you have any questions, please contact pharmacy at [phone]. Age: [age] year old Allergies: ALLERGIES Allergen Reactions Erythromycin Other: See Comments Red eyes Last 3 Encounter Wt Readings: Date: Wt: 04/12/2023 64 kg (141 lb) 07/15/2020 68 kg (150 lb) Last 1 Encounter Ht Readings: Date: Ht: 04/12/2023 182.9 cm (6') CrCl: 65.6 mL/min Temp (24hrs), Av.5 ?C (97.7 ?F), Min:36.1 ?C (97 ?F), Max:36.7 ?C (98.1 ?F) - Current Temp: 36.1 ?C (97 ?F) Labs BUN (mg/dL) Date Value 04/17/2023 20 Creatinine (mg/dL) Date Value 04/17/2023 1.03 No results found for: WBC Vancomycin Levels: No results found for: ARIAN Edwards, [facility] ECG COMPLETEon 04-17-2023 ECG COMPLETE Ventricular Rate : 7 6 BPM Atrial Rate : 76 BPM P-R Interval : 142 ms QRS Duration : 94 ms Q-T Interval : 350 ms QTC Calculation(Bazett) : 393 ms Calculated P [place] : 33 degrees Calculated R [place] : 16 degrees Calculated T [place] : 39 degrees Normal sinus rhythm Normal ECG No previous ECGs available Confirmed by RAUL CORONEL MD ([id number]) on 04/18/2023 6:17:23 PM NAME : AURELIO RODRIGUEZ PID : [id number] : 1960 Gender : Male Race : ORD : [id number] Procedure Date : Apr 17 2023 14:53:26 Edit Date : Apr 18 2023 18:17:23 Diagnosis: Normal sinus rhythm Normal ECG No previous ECGs available Confirmed by RAUL CORONEL MD ([id number]) on 04/18/2023 6:17:23 PM Test Reason : STAT Location : 23 : SURG MROR Overread By : RAUL CORONEL MD Edited By : RAUL CORONEL MD Referred By : , Acquired by : [id number], [facility] HISTORY PHYSICALon HISTORY PHYSICAL HNO ID: [id number] Author: Will Medrano MD Service: Hospital Medicine Author Type: Physician Type: HANDP Filed: 04/17/2023 6:59 PM Note Text: HISTORY AND PHYSICAL EXAMINATION SERVICE DATE: 04/17/2023 SERVICE TIME: 6:51 PM PRIMARY CARE PHYSICIAN: Taya Perea, Subjective HPI the patient states that he fell out of the back of a truck and stated he scraped his arm. He did not think much of it until it start becoming swollen shortly thereafter. It had not been bothering him until the last couple weeks when it started to get more painful. He denies fevers chills or recent illness. Patient is a poor historian and does not know many of his medical problems or medications. Information taken from chart FUNCTIONAL STATUS: Independent PAST MEDICAL HISTORY Diagnosis Date Acid reflux Essential hypertension Inguinal hernia Seasonal allergies Type 2 diabetes mellitus (HCC) PAST SURGICAL HISTORY Procedure Laterality Date REMV CATARACT EXTRACAP,INSERT LENS REPAIR INCISIONAL HERNIA,REDUCIBLE VASECTOMY EGD Fhx: Mother: , he does not remember her medical problems Father: , history of diabetes hypertension CHF Social History Tobacco Use Smoking status: Never Smokeless tobacco: Never Substance Use Topics Alcohol use: Not Currently Drug use: Never aspirin, enteric coated (ASPIRIN, ENTERIC COATED) 81 mg EC tablet, Take 81 mg by mouth every morning. INSTRUCTED TO CLARIFY WITH DR. VILLAFUERTE., Disp: , Rfl: , 04/12/2023 bupropion HCl (WELLBUTRIN ORAL), Take 150 mg by mouth every morning., Disp: , Rfl: , 04/17/2023 at 1000 cetirizine (ZYRTEC) 10 mg tablet, Take 10 mg by mouth every morning., Disp: , Rfl: , 04/17/2023 at 1000 FISH OIL-DHA-EPA ORAL, Take 2,400 mg by mouth every morning., Disp: , Rfl: fluticasone propionate (FLONASE NASAL), Use 50 mg in the nose every morning. 2 SPRAYS EACH SIDE, Disp: , Rfl: , 04/17/2023 at 1000 lisinopril (ZESTRIL, PRINIVIL) 10 mg tablet, Take 10 mg by mouth every morning., Disp: , Rfl: metFORMIN (GLUCOPHAGE) 1,000 mg tablet, Take 1,000 mg by mouth twice daily with meals., Disp: , Rfl: multivit with minerals/lutein (MULTIVITAMIN 50 PLUS ORAL), Take by mouth once daily., Disp: , Rfl: pantoprazole DR (PROTONIX) 40 mg tablet, Take 40 mg by mouth every morning., Disp: , Rfl: pioglitazone (ACTOS) 30 mg tablet, Take 30 mg by mouth daily at bedtime., Disp: , Rfl: semaglutide (RYBELSUS) 7 mg tablet, Take 7 mg by mouth daily before breakfast. Take 30 minutes before the first food, beverage, or other oral medications of the day with no more than 4 ounces of plain water, Disp: , Rfl: ALLERGIES Allergen Reactions Erythromycin Other: See Comments Red eyes COMPLETE REVIEW OF SYSTEMS: Review of Systems Constitutional: Negative for chills and fever. HENT: Negative for congestion, rhinorrhea and sore throat. Eyes: Negative for pain and redness. Respiratory: Negative for cough and shortness of breath. Cardiovascular: Negative for chest pain and palpitations. Gastrointestinal: Negative for abdominal pain, nausea and vomiting. Endocrine: Negative for polydipsia and polyphagia. Genitourinary: Negative for dysuria and hematuria. Musculoskeletal: Negative for back pain and joint swelling. Skin: Negative for rash and wound. Neurological: Negative for dizziness and headaches. Psychiatric/Behaviora l: Negative for agitation and confusion. Objective PHYSICAL EXAM: Physical Exam BP 142/76 Pulse 68 Temp 36.1 ?C (97 ?F) (Oral) Resp 18 Ht 182.9 cm (6') Wt 63.6 kg (140 lb 3.2 oz) SpO2 92% BMI 19.01 kg/m? Body mass index is 19.01 kg/m?. General: male, pleasant, Patient is alert and oriented x3 and is in no acute respiratory distress HEENT: Normal cephalic, atraumatic, PERRLA Lungs: Clear to auscultation, no wheezing, rales, or rhonchi. Cardiac: Regular rhythm and rate, no murmurs, no rubs. Abdomen: Soft, nontender, nondistended, bowel sounds are active. Extremities: right arm wrapped post-procedure, no cyanosis or clubbing. Skin: No rashes or breakdown. Musculoskeletal: Normal MS exam, moves all extremities Lymphatic: Negative cervical, supra-clavicular, groin lymphadenopathy. Neurologic: Cranial nerves from II-XII intact grossly, no focal deficits. Psychiatry: Normal affect. DATA: Diagnostic tests reviewed for today's visit: Most recent labs Assessment/Plan Osteomyelitis/bursiti s-patient underwent irrigation and debridement of the right elbow with cultures, patient is being started on vancomycin and ceftriaxone, infectious disease has also been placed on consult, awaiting input, follow cultures obtain CBC to check white blood cell count, blood cultures may be less useful currently as patient got Ancef with procedure, patient has Dilaudid Roxicodone and tramadol as needed for pain Diabetes-patient will be on a carb controlled diet, will order sliding scale insulin, home metfo (more content not included)... Normal [facility] HISTORY PHYSICAL HNO ID: [id number] Author: Betsy Villafuerte DO Service: Orthopaedic Surgery Author Type: Physician Type: HANDP Filed: 04/17/2023 4:31 PM Note Text: Patient presents for irrigation and debridement right elbow PHYSICAL EXAMINATION: General appearance: Well appearing, alert, in no acute distress, well-hydrated, well nourished. Skin: Skin color, texture, turgor normal, no suspicious rashes or lesions Head: Normocephalic, no masses, lesions, tenderness or abnormalities Eyes: Anicteric sclera. Pupils are equally round and reactive to light. Extraocular movements are intact. Ears: External ears normal, canals clear Nose/Sinuses: Nares normal, septum midline, mucosa normal, no drainage or sinus tenderness Oropharynx: Lips, mucosa, and tongue normal, teeth and gums normal, oropharynx normal Neck: Supple, no adenopathy; thyroid symmetric, normal size, no bruits Back: not examined Lungs: Lungs clear to auscultation. No wheezing, rhonchi, rales. Heart: RRR without murmur, gallop, or rubs. No ectopy Abdomen: Normal abdominal exam, Abdomen soft, non-tender. Bowel sounds normal. No masses, organomegaly Extremities: No deformities, edema, skin discoloration, clubbing or cyanosis. Good capillary refill. Musculoskeletal: See office note Peripheral pulses: Normal Neuro: Gait normal. Reflexes normal and symmetric. Sensation grossly intact. HANDP reviewed-patient states no interval changes Betsy Villafuerte DO Normal [facility] Hgb Bld-mCncon 04-17-2023 Hemoglobin (Bld) [Mass/Vol] 12.3 g/dL Low 13.0-17.0 [facility] Comment on above: Order Comment: Speci men Type: BLOOD SPECIMEN Ordering Facility: [facility] Address: [address] [place] [address] Performed By: #### 7 18-7 #### [facility] CLIA [id number] [address] [place] [address] [place] OPERATIVE NOon 04-17-2023 OPERATIVE NO HNO ID: [id number] Author: Betsy Villafuerte DO Service: Orthopaedic Surgery Author Type: Physician Type: Operative Report Filed: 04/17/2023 4:37 PM Note Text: ORTHO OPERATIVE REPORT LOG ID: [id number] Surgery/Procedure Date: 04/17/2023 Incision/Procedure Start Time: 3:42 PM Incision Close/Procedure End Time: 4:25 PM Surgeon(s)/Procedural ist(s) and Staff Reporter(s): Surgeon(s) and Role: * Betsy Villafuerte DO - Primary * Jeanette Méndez DO - Resident - Assisting * Kvng Appiah MD - Resident - Assisting Registered Nurse Playground Aide: Hemant García RN Procedure(s): Irrigation and debridement right elbow with obtainment of cultures Anesthesia: General Procedure Details: This 63-year-old male presented to my office after a fall onto his right upper extremity approximately 2 to 3 months prior to that visit. He had significant bursitis about his right elbow but no drainage and no open wounds. MRI was ordered to assess the integrity of his triceps tendon and the patient subsequently had an MRI which demonstrated possible osteomyelitis and phlegmon associated with the triceps tear. We discussed with him the options including nonoperative and operative management and recommended irrigation and debridement of the arm and treatment of the osteomyelitis by infectious disease. Patient agreed to proceed with surgery. He understood we would not repair the triceps in the face of infection. Patient understood the risk benefits complications and alternatives the operation went to proceed. Patient was seen in the preoperative holding area and identified verbally by his name yohana. Patient's right upper extremity was marked as correct. He was taken the operative suite placed in the supine position on the operating table and subsequently anesthetized by anesthesia team. Preoperative antibiotics were given to the patient 2 g of Ancef. He was prepped and draped in a sterile therapeutic fashion with a nonsterile tourniquet placed in the right upper extremity. At this point tourniquet was raised to 250 mmHg an incision was created on the posterior aspect of the arm beginning in the midline curving radial around the olecranon and back to the midline. At this point we dissected through the skin and subcutaneous tissues identifying a inflamed olecranon bursa. This was sharply excised. There was a sinus tract from the skin all the way to the joint through a triceps tear. This was a full-thickness tear of the triceps but only on the lateral aspect of the elbow medial portion of the triceps was intact. There was a edematous and necrotic appearing bursa and soft tissue tracking directly to the olecranon process. The olecranon had cortical destruction and scalloping consistent with infection and osteomyelitis. We sent cultures of the soft tissues as well as cultures of the bone to microbiology for evaluation. The patient subsequently was thoroughly irrigated and a debridement was performed sharply excising the synovial and bursal tissue. Once the tissue appeared to be clean and healthy the wound was thoroughly irrigated with multiple liters of saline. We then closed the triceps tendon tear side to side with PDS suture and subsequently closed the skin with subcutaneous suture followed by angelika for the skin. Patient was placed in a soft sterile dressing and a long-arm splint and then was taken to the PACU in stable condition having suffered no complications from the operation. Disposition: Patient will be admitted to the hospital and will be evaluated by infectious diseases for possible oral versus IV antibiotic treatment of this osteomyelitis of his olecranon. Cultures have been sent to microbiology. PRE-OP/PRE-PROCEDURE DIAGNOSIS: Right elbow abscess possible osteomyelitis POST-OP/POST-PROCEDUR E DIAGNOSIS: 1. Right elbow phlegmon 2. Right olecranon osteomyelitis Estimated Blood Loss: 10 cc Specimens: Cultures to microbiology Implant: None Drains: None Complications: None Participation in Procedure: I/primary surgeon/proceduralist performed the procedure with assistance. SIGNATURE: Betsy Villafuerte DO PATIENT NAME: Aurelio Rodriguez DATE: April 17, 2023 TIME: 4:31 PM PAGER/CONTACT #: [facility] ANES PREOPon 04-15-2023 ANES PREOP HNO ID: [id number] Author: Dena Aragon APRN.NICKY Service: Anesthesiology Author Type: Nurse Practitioner Type: Anesthesia PreOp Filed: 04/15/2023 4:34 PM Note Text: 63yo slim male, nonsmoker. PMH: HTN, DM2, GERD, depression. On ASA- instructed to verify with Noy if he needed to hold (per nurses' notes) EKG 04/12/23 (unconfirmed): 71bpm, SR Normal [facility] .GFRon 04-12-2023 GFR 88 ml/min/1.73sqm Normal [facility] ([place]) Comment on above: Result Comment: GFR Population mean for , Non- Americans Ages 20-29 = 116 mL/min/1.73 sq.m. Ages 30-39 = 107 mL/min/1.73 sq.m. Ages 40-49 = 99 mL/min/1.73 sq.m. Ages 50-59 = 93 mL/min/1.73 sq.m. Ages 60-69 = 85 mL/min/1.73 sq.m. Ages 70+ = 75 mL/min/1.73 sq.m. Chronic Kidney Disease: Less than 60 mL/min/1.73 square meters End Stage Renal Disease: Less than 15 mL/min/1.73 square meters Performed By: #### B MP, A1C, GFR ####[address] [place], [place] [address] GFR Non- 73 ml/min/1.73sqm Normal [facility] ([place]) Comment on above: Result Comment: GFR Population mean for , Non- Americans Ages 20-29 = 116 mL/min/1.73 sq.m. Ages 30-39 = 107 mL/min/1.73 sq.m. Ages 40-49 = 99 mL/min/1.73 sq.m. Ages 50-59 = 93 mL/min/1.73 sq.m. Ages 60-69 = 85 mL/min/1.73 sq.m. Ages 70+ = 75 mL/min/1.73 sq.m. Chronic Kidney Disease: Less than 60 mL/min/1.73 square meters End Stage Renal Disease: Less than 15 mL/min/1.73 square meters Performed By: #### B MP, A1C, GFR ####[id number] [place], [place] [address] A1Con 04-12-2023 HbA1c (Bld) [Mass fraction] 7.2 % High 4.3-6.4 [facility] ([place]) Comment on above: Performed By: #### B MP, A1C, GFR ####[address] [place], [place] [address] BMPon 04-12-2023 BUN/Creatinine Ratio 17 ratio Normal 7-27 [facility] ([place]) Comment on above: Performed By: #### B MP, A1C, GFR ####[address] [place], [place] [address] Calcium [Mass/Vol] 8.8 mg/dL Normal 8.4-10.2 [facility] ([place]) Comment on above: Performed By: #### B MP, A1C, GFR ####[address] [place], [place] [address] Chloride [Moles/Vol] 101 mmol/L Normal 98-107 [facility] ([place]) Comment on above: Performed By: #### B MP, A1C, GFR ####[address] [place], [place] [address] CO2 [Moles/Vol] 28 mmol/L Normal 23-31 [facility] ([place]) Comment on above: Performed By: #### B MP, A1C, GFR ####[address] [place], [place] [address] Creatinine [Mass/Vol] 1.03 mg/dL Normal 0.70-1.30 [facility] ([place]) Comment on above: Performed By: #### B MP, A1C, GFR ####[address] [place], [place] [address] Electrolyte Balance 7.0 mEq/L Normal 4.0-15.0 [facility] ([place]) Comment on above: Performed By: #### B MP, A1C, GFR ####[address] [place], [place] [address] Glucose [Mass/Vol] 135 mg/dL High 80-115 [facility] ([place]) Comment on above: Performed By: #### B MP, A1C, GFR ####[address] [place], [place] [address] Potassium [Moles/Vol] 4.3 mmol/L Normal 3.5-5.1 [facility] ([place]) Comment on above: Performed By: #### B MP, A1C, GFR ####[id number] [place], [place] [address] Sodium [Moles/Vol] 136 mmol/L Normal 136-145 [facility] ([place]) Comment on above: Performed By: #### B MP, A1C, GFR ####[address] [place], [place] [address] Urea nitrogen [Mass/Vol] 17 mg/dL Normal 7-18 [facility] ([place]) Comment on above: Performed By: #### B MP, A1C, GFR ####[id number] [place], [place] [address] XR ELBOW MINIMUM 3 VIEWS RIG HTon 03-28-2023 XR ELBOW MINIMUM 3 VIEWS RIGHT ORIGINAL EXAMINATION: THREE XRAY VIEWS OF THE RIGHT ELBOW03/21/2023 4:26 pm COMPARISON: None HISTORY: ORDERING SYSTEM PROVIDED HISTORY: Reason for Exam: Pain, swelling, reduced range of motion after fall onto elbow 4 weeks ago, FINDINGS: Comminuted avulsion fracture of posterosuperior aspect of olecranon process with mild displacement. A small corticated osseous structure also seen superior to olecranon process likely remote injury. Adjacent soft tissue swelling seen in the posterior and medial aspect of the elbow. No significant elbow joint effusion. Small marginal osteophytes seen in ulnohumeral joint. Small enthesophyte at the olecranon process and medial epicondyle. No other acute fracture or dislocation. No radiopaque foreign body.. IMPRESSION: Acute mildly displaced comminuted avulsion fracture of posterosuperior aspect of olecranon process with adjacent soft tissue swelling. I have personally reviewed the images of this examination and agree with the resident's findings and interpretation. Interpreted by: Will Blair MD Preliminary Report By: Hong Garduno Electronically signed By Will Blair MD Dictated Date: 03/28/2023 8:31:40 AM Prelim Date: 03/28/2023 9:23:04 AM Sign Date: 03/28/2023 9:23:04 AM Ordering Provider: TAYA Jefferson [facility] ([place]) XR ESOPHOGRAM W/ AIRon 10-30 XR ESOPHOGRAM W/ AIR ORIGINAL HISTORY: Dysphagia COMPARISON: No FLUOROSCOPY TIME: 4 minutes 7 seconds FLUOROSCOPY IMAGES: 64 FINDINGS: The patient was tested with thick barium and a tablet. Patient was not tested on thin barium. There is aspiration. Otherwise, the esophagus is normal in caliber, without filling defect or extrinsic impingement. There are mild tertiary contractions. No mucosal abnormalities are seen. A swallowed tablet did not pass the gastroesophageal junction with multiple water swallows, and the patient needed to remain sitting for 10 minutes or so before the tablet was no longer visualized. Reflux was not evaluated due to the aforementioned aspiration. IMPRESSION: Aspiration on initial swallow with a straw; the examination was switched to cup in patient had no further difficulty. Mild tertiary contractions. 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 Interpreted by: Eloy Martines MD Preliminary Report By: Eloy Martines MD Electronically signed By Eloy Martines MD Dictated Date: 10/30/2022 2:58:02 PM Prelim Date: 10/30/2022 3:01:16 PM Sign Date: 10/30/2022 3:01:16 PM Ordering Provider: TAYA [facility] ([place] XR SWALLOWING FUNCTIONon XR SWALLOWING FUNCTION ORIGINAL Images acquired, not reported on this accession number. [facility] OBSOLETEon 07-21-2020 OBSOLETE Procedure (AKSTEPHEN) AURELIO RODRIGUEZ ([id number]) 1960 M Date Time Provider Department 07/21/20 8:15 AM [facility]UR [facility] [place] During your visit today, we recorded the following information about you: Referring Provider: SAMSON JOHANSEN [[id number]] Allergies As of Date: 07/21/2020 Noted Allergy Reaction ERYTHROMYCIN 07/15/2020 14 - Other: See Comments Comments: Red eyes Date Reviewed: 07/15/2020 Reviewed by: Nefarteria (Ma) Gutierrez - Fully Assessed Reason for Visit: Musculoskeletal Problem [69] Visit Diagnoses:Suprascapul ar mononeuropathy, right [G56.81] Shoulder weakness [R29.898] Numbness and tingling of both upper extremities [R20.0, R20.2] Chronic pain of both shoulders [M25.511, G89.29, M25.512] Carpal tunnel syndrome, right upper limb [G56.01] Other specified mononeuropathies of right upper limb [G56.81] Order(s):EMG(NEURO/NI ) [[id number]] Order #: [id number]. #:[id number]: 1 Prescriptions as of 07/21/2020 Sig: LISINOPRIL 10 MG TABLET Take 10 mg by mouth once sil* METFORMIN 1,000 MG TABLET Take 1,000 mg by mouth twice * PIOGLITAZONE 30 MG TABLET Take 30 mg by mouth once sil* ASPIRIN 81 MG TABLET,DELAYED * Take 81 mg by mouth once sil* BYDUREON 2 MG/0.65 ML SUBCUTA* Inject 2 mg subcutaneously on* MULTIVITAMIN 50 PLUS ORAL Take by mouth once daily. FISH OIL-DHA-EPA ORAL Take by mouth once daily. CETIRIZINE 10 MG TABLET Take 10 mg by mouth once sil* Problem List As Of Date: 07/21/2020 (None) Encounter Status:Closed by JAMES CARL on 07/22/20 [facility] Otheron 07-21-2020 Assistant Health Educator Please click on 'Mirtha w Neuro EMG' in the Scanned Documents area BELOW to obtain complete EMG data and result. [facility] CNOVon 07-15-2020 CNOV Office Visit (NEAGAK ) AURELIO RODRIGUEZ ([id number]) 1960 M Date Time Provider Department 07/15/20 3:00 PM SAMSON JOHANSEN During your visit today, we recorded the following information about you: Pulse Blood pressure Weight Height 82/minute 110/67 68 kg 1.829 m Samson Johansen MD 07/15/2020 4:59 PM Signed NEW PATIENT EVALUATION Subjective HPI Aurelio Rodriguez is a 60 year old right-handed male who presents for evaluation of bilateral arm weakness / pain. Dr. Villafuerte is the referring physician. Dr. Taya Perea DO is the PCP. He fell 01/19 and tripped over a 2/6, fell onto his left shoulder. Was having left shoulder pain. 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 After a few days his right shoulder started having pain. The pain was primarily in the shoulders. Sometimes would have tingling at the elbow similar to how he funny bone feeling is. Over time pain has been getting better. Seems to have more weakness on his right side than left. He mentions weakness worst in the proximal RUE, can't lift his arm up to brush his hair, bringing a drink to his mouth is difficult. He has had pain in the back of his shoulders for years, intermittent, would often be stretching to try to help ( notes this more than he does). also notes that he was having a hard time removing nuts from a new washer, which he says was due to difficulty reaching with right shoulder problem, thought it was more hand issue. He has had diabetes since 2004, last A1c in the 7-8 range. He has occasional numbness in his feet but wasn't a major problem. Prior to all this had not been diagnosed with neuropathy. No history of any surgeries on shoulder / arm / neck, no history of major trauma. He has not done physical therapy. No family history of any neurologic conditions. Medications: Current Outpatient Medications Medication Sig Dispense Refill - lisinopril (ZESTRIL, PRINIVIL) 10 mg tablet Take 10 mg by mouth once daily. - metFORMIN (GLUCOPHAGE) 1,000 mg tablet Take 1,000 mg by mouth twice daily with meals. - pioglitazone (ACTOS) 30 mg tablet Take 30 mg by mouth once daily. - aspirin, enteric coated (ASPIRIN, ENTERIC COATED) 81 mg EC tablet Take 81 mg by mouth once daily. - exenatide microspheres (BYDUREON) 2 mg/0.65 mL pnij Inject 2 mg subcutaneously one time a week. - multivit with minerals/lutein (MULTIVITAMIN 50 PLUS ORAL) Take by mouth once daily. - FISH OIL-DHA-EPA ORAL Take by mouth once daily. - cetirizine (ZYRTEC) 10 mg tablet Take 10 mg by mouth once daily. No current facility-administered medications for this visit. ROS ROS: His ROS was positive for that mentioned in the HPI. Otherwise a 10-point ROS was completed and was negative. 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 Head: Normocephalic, no masses, lesions, tenderness or abnormalities Neck: Supple Heart: RRR Peripheral Pulses: Normal Neurologic Examination Mental Status: He is alert. He is fully oriented. Attention is intact. Recent and remote memory is intact. Language shows normal naming, comprehension, fluency, and repetition. Praxis is normal. Affect is appropriate. Cranial Nerves: Pupils are equal and reactive to light. Extraocular movements show full and smooth pursuits. No nystagmus. Visual aprisi are full to confrontation. Facial sensation is intact. Facial activation is symmetric. Hearing is intact to conversation. There is no hypomimia. There is no hypophonia. There is no dysarthria. Tongue is midline. Palate elevates symmetrically. Shoulder shrug is normal. Motor: Muscle bulk is normal. Delt Biceps Triceps Wrist Ext Wrist Flex Finger Flex Finger Ext Finger Abd Finger Add Right 4/5 5/5 5/5 5/5 5/5 5/5 5/5 5/5 5/5 Left 5/5 5/5 5/5 5/ 5/ 5/ 5/ 5/ 5/ Hip Flex Hip Ext BiFem (knee flex) Quads (knee ext) Gastroc (plantflx) TibAnt (Dorsiflx) TibPost (ank add) Ankle Eversion Ankle Inversion FlxHLong (ToeFlex) ExtHLong (ToeExt) Right 11/09/ 5/ 5/ 5/ 5/ 5/ 5/11 09/ 5 5 Left 11/09/ 5/ 5/ 5/11 09/11 09/11 09/ 5/ 5/ 5 Neck Flexors 11/09 Neck Extensors 11/09 Supraspinatus empty can - left /, right 0/5 Infraspinatus external rotation of flexed elbow left 11/09, right seems like 0/5 kept positioning himself to use triceps Sensory: Decreased to pinprick throughout both UEs with distal gradient more noticeable around shoulders, no lateralization in hands, normal in feet. Vibration / proprioception normal in toes and hands. Reflex: Biceps, triceps, and brachioradialis is 2+ bilaterally. Patellar reflex 2-3+ bilaterally (mild crossed activation). Ankle jerks absent bilaterally. Toes are downgoing to plantar stimulation. Coordination: Finger to nose is smooth without ataxia. Gait/station: Unremarkable DATA REVIEWED Actual films/image/tracing reviewed and summarized as follows: n/a Old records reviewed and summarized as follows: - Ortho referral records from Dr. Villafuerte - MRI right shoulder 03/30/20: Acromioclavicular arthritis. Minimal tiny undersurface incomplete rim rent [sic] tears at the insertion of the supraspinatus and the infraspinatus. - MRI left shoulder 03/30/20: Suprascapularis tearing. I'm not sure if this is a full thickness or incomplete thickness tearing. It is not a complete tear. There is a shoulder effusion as well as fluid within the subacromial/subdeltoi d bursa of the biceps tendon with possible longitudinal split tear to the biceps tendon. - MRI cervical spine 04/22/20: C4-5 mild right foraminal stenosis, C5-6 mod right mild left foraminal narrowing with mild central stenosis, C6-7 mod-severe right and mild left foraminal narrowing with moderate central stenosis - EMG/NCS b/l UE Dr. Zaragoza 04/26/20: Nearly complete right suprascapular nerve lesion... 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 Superimposed nerve entrapments including bilaterally moderately severe carpal tunnel syndrome, worse on the right, and bilateral severe cubital tunnel syndrome, worse on the left. Assessment/Plan Assessment AND Plan: Aurelio Rodriguez is a 60 year old right-handed male with a history of DM and HTN who presents with bilateral shoulder pain and right proximal UE weakness. His examination demonstrates weakness of right supraspinatus and infraspinatus (minimal weakness deltoid), normal UE reflexes, and numbness in both UEs more than LEs. Outside EMG a little confusing with concern for suprascapular nerve injury, multiple UE mononeuropathies, and peripheral neuropathy. Based on his exam, I do think a suprascpular nerve injury is possible based on the pattern of weakness. The pattern of numbness is a little unusual for typical peripheral neuropathy since the LEs are much less affected, if at all, which could suggest either cervical radiculopathy or mononeuropathy. I reviewed the case with my neuromuscular colleague who recommended repeating the EMG/NCS to clarify the prior findings. I placed this order today. Depending on this result will consider additional imaging or other testing. I explained the importance of physical therapy in regaining strength. Placed order for this today. He should return to see me in 3 months but will be in contact after EMG for additional next steps. Samson Johansen MD [facility] Samson Johansen MD 07/15/2020 3:46 PM Signed Lets get the repeat EMG and do some physical therapy. Referring Provider: BETSY VILLAFUERTE [[id number]] Allergies As of Date: 07/15/2020 Noted Allergy Reaction ERYTHROMYCIN 07/15/2020 14 - Other: See Comments Comments: Red eyes Date Reviewed: 07/15/2020 Reviewed by: Zafar Whitley - Fully Assessed Reason for Visit: New Patient [172] Cmt: left sided weakness Primary Visit Diagnosis:Suprascapul ar mononeuropathy, right [G56.81] Other Visit Diagnoses:Shoulder weakness [R29.898] Numbness and tingling of both upper extremities [R20.0, R20.2] Chronic pain of both shoulders [M25.511, G89.29, M25.512] Order(s):EMG(NEURO/NI ) [20101006] Order #: [id number]: 1 FUTURE CONSULT TO PHYSICAL THERAPY [9032] Order #: [id number]: 1 FUTURE Prescriptions as of 07/15/2020 Sig: LISINOPRIL 10 MG TABLET Take 10 mg by mouth once sil* METFORMIN 1,000 MG TABLET Take 1,000 mg by mouth twice * PIOGLITAZONE 30 MG TABLET Take 30 mg by mouth once sil* ASPIRIN 81 MG TABLET,DELAYED * Take 81 mg by mouth once sil* BYDUREON 2 MG/0.65 ML SUBCUTA* Inject 2 mg subcutaneously on* MULTIVITAMIN 50 PLUS ORAL Take by mouth once daily. FISH OIL-DHA-EPA ORAL Take by mouth once daily. CETIRIZINE 10 MG TABLET Take 10 mg by mouth once sil* Problem List As Of Date: 07/15/2020 (None) Other instructions from your clinician: Lets get the repeat EMG and do some physical therapy. Disposition: Return in about 3 months (around 10/13/2020). Follow-up and Disposition History Recorded Letter Text Encounter Status:Closed by SAMSON JOHANSEN MD on 07/15/20 [facility] PROGRESSon 07-15-2020 PROGRESS HNO ID: [id number] Author: Samson Johansen Service: ? Author Type: Physician Type: Progress Notes Filed: 07/15/2020 4:59 PM Note Text: NEW PATIENT EVALUATION Subjective HPI Aurelio Rodriguez is a 60 year old right-handed male who presents for evaluation of bilateral arm weakness / pain. Dr. Villafuerte is the referring physician. Dr. Taya Perea DO is the PCP. He fell 15 and tripped over a 2/6, fell onto his left shoulder. Was having left shoulder pain. 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 After a few days his right shoulder started having pain. The pain was primarily in the shoulders. Sometimes would have tingling at the elbow similar to how he funny bone feeling is. Over time pain has been getting better. Seems to have more weakness on his right side than left. He mentions weakness worst in the proximal RUE, can't lift his arm up to brush his hair, bringing a drink to his mouth is difficult. He has had pain in the back of his shoulders for years, intermittent, would often be stretching to try to help ( notes this more than he does). also notes that he was having a hard time removing nuts from a new washer, which he says was due to difficulty reaching with right shoulder problem, thought it was more hand issue. He has had diabetes since 2004, last A1c in the 7-8 range. He has occasional numbness in his feet but wasn't a major problem. Prior to all this had not been diagnosed with neuropathy. No history of any surgeries on shoulder / arm / neck, no history of major trauma. He has not done physical therapy. No family history of any neurologic conditions. Medications: Current Outpatient Medications Medication Sig Dispense Refill - lisinopril (ZESTRIL, PRINIVIL) 10 mg tablet Take 10 mg by mouth once daily. - metFORMIN (GLUCOPHAGE) 1,000 mg tablet Take 1,000 mg by mouth twice daily with meals. - pioglitazone (ACTOS) 30 mg tablet Take 30 mg by mouth once daily. - aspirin, enteric coated (ASPIRIN, ENTERIC COATED) 81 mg EC tablet Take 81 mg by mouth once daily. - exenatide microspheres (BYDUREON) 2 mg/0.65 mL pnij Inject 2 mg subcutaneously one time a week. - multivit with minerals/lutein (MULTIVITAMIN 50 PLUS ORAL) Take by mouth once daily. - FISH OIL-DHA-EPA ORAL Take by mouth once daily. - cetirizine (ZYRTEC) 10 mg tablet Take 10 mg by mouth once daily. No current facility-administered medications for this visit. ROS ROS: His ROS was positive for that mentioned in the HPI. Otherwise a 10-point ROS was completed and was negative. 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 Head: Normocephalic, no masses, lesions, tenderness or abnormalities Neck: Supple Heart: RRR Peripheral Pulses: Normal Neurologic Examination Mental Status: He is alert. He is fully oriented. Attention is intact. Recent and remote memory is intact. Language shows normal naming, comprehension, fluency, and repetition. Praxis is normal. Affect is appropriate. Cranial Nerves: Pupils are equal and reactive to light. Extraocular movements show full and smooth pursuits. No nystagmus. Visual parisi are full to confrontation. Facial sensation is intact. Facial activation is symmetric. Hearing is intact to conversation. There is no hypomimia. There is no hypophonia. There is no dysarthria. Tongue is midline. Palate elevates symmetrically. Shoulder shrug is normal. Motor: Muscle bulk is normal. Delt Biceps Triceps Wrist Ext Wrist Flex Finger Flex Finger Ext Finger Abd Finger Add Right 4/5 5/5 5/5 5/5 5/5 5/5 5/5 5/5 5/5 Left 5/5 5/5 5/5 5/5 5/5 5/5 5/5 5/5 5/5 Hip Flex Hip Ext BiFem (knee flex) Quads (knee ext) Gastroc (plantflx) TibAnt (Dorsiflx) TibPost (ank add) Ankle Eversion Ankle Inversion FlxHLong (ToeFlex) ExtHLong (ToeExt) Right 5/5 5/5 5/5 5/5 5/5 5/5 5/5 5/5 5/5 5/5 5/5 Left 5/5 5/5 5/5 5/5 5/5 5/5 5/5 5/5 5/5 5/5 5/5 Neck Flexors 5/5 Neck Extensors 5/5 Supraspinatus empty can - left 4/5, right 0/5 Infraspinatus external rotation of flexed elbow left 5/5, right seems like 0/5 kept positioning himself to use triceps Sensory: Decreased to pinprick throughout both UEs with distal gradient more noticeable around shoulders, no lateralization in hands, normal in feet. Vibration / proprioception normal in toes and hands. Reflex: Biceps, triceps, and brachioradialis is 2+ bilaterally. Patellar reflex 2-3+ bilaterally (mild crossed activation). Ankle jerks absent bilaterally. Toes are downgoing to plantar stimulation. Coordination: Finger to nose is smooth without ataxia. Gait/station: Unremarkable DATA REVIEWED Actual films/image/tracing reviewed and summarized as follows: n/a Old records reviewed and summarized as follows: - Ortho referral records from Dr. Villafuerte - MRI right shoulder 03/30/20: Acromioclavicular arthritis. Minimal tiny undersurface incomplete rim rent [sic] tears at the insertion of the supraspinatus and the infraspinatus. - MRI left shoulder 03/30/20: Suprascapularis tearing. I'm not sure if this is a full thickness or incomplete thickness tearing. It is not a complete tear. There is a shoulder effusion as well as fluid within the subacromial/subdeltoi d bursa of the biceps tendon with possible longitudinal split tear to the biceps tendon. - MRI cervical spine 04/22/20: C4-5 mild right foraminal stenosis, C5-6 mod right mild left foraminal narrowing with mild central stenosis, C6-7 mod-severe right and mild left foraminal narrowing with moderate central stenosis - EMG/NCS b/l UE Dr. Zaragoza 04/26/20: Nearly complete right suprascapular nerve lesion... 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 Superimposed nerve entrapments including bilaterally moderately severe carpal tunnel syndrome, worse on the right, and bilateral severe cubital tunnel syndrome, worse on the left. Assessment/Plan Assessment AND Plan: Aurelio Rodriguez is a 60 year old right-handed male with a history of DM and HTN who presents with bilateral shoulder pain and right proximal UE weakness. His examination demonstrates weakness of right supraspinatus and infraspinatus (minimal weakness deltoid), normal UE reflexes, and numbness in both UEs more than LEs. Outside EMG a little confusing with concern for suprascapular nerve injury, multiple UE mononeuropathies, and peripheral neuropathy. Based on his exam, I do think a suprascpular nerve injury is possible based on the pattern of weakness. The pattern of numbness is a little unusual for typical peripheral neuropathy since the LEs are much less affected, if at all, which could suggest either cervical radiculopathy or mononeuropathy. I reviewed the case with my neuromuscular colleague who recommended repeating the EMG/NCS to clarify the prior findings. I placed this order today. Depending on this result will consider additional imaging or other testing. I explained the importance of physical therapy in regaining strength. Placed order for this today. He should return to see me in 3 months but will be in contact after EMG for additional next steps. Samson Johansen MD [facility] Vital Signs Date Time Vital Sign Value Performing Clinician Faci brittny 07-15-2020 14:55-0500 Body weight 68.04 kg Samson Johansen [facility] 07-15-2020 14:55-0500 BP Diastolic 67 mm[Hg] Samson [facility] 07-15-2020 14:55-0500 BP Systolic 110 mm[Hg] Samson [facility] 07-15-2020 14:55-0500 Height 182.9 cm Samson Johansen [facility] 07-15-2020 14:55-0500 Pulse (Heart Rate) 82 /min Samson Johansen [facility] 07-15-2020 14:55-0500 Pulse Oximetry 97 % [facility] Encounters Encounter Date Encounter Type Care Provider Facility Start: 05-25-2023 End: 05-26-2023 ambulatory TAYA PEREA Facility:B Start: 05-25-2023 End: 05-25-2023 Patient encounter procedure TAYA PEREA DO [facility] Start: 04-17-2023 End: 04-22-2023 Evaluation and management of inpatient BETSY PLUNKETTANNI Facility:[id number] Start: 04-12-2023 End: 04-13-2023 ambulatory BETSY VILLAFUERTE Facility:B Start: 03-21-2023 End: 03-22-2023 ambulatory TAYA PEREA DO Facility:B Start: 03-21-2023 End: 03-21-2023 Patient encounter procedure TAYA PEREA DO [facility] Start: 10-30-2022 End: 10-31-2022 ambulatory TAYA PEREA DO Facility:B Start: 10-16-2022 ambulatory TAYA PEREA DO Facil ity:A Start: 10-09-2022 End: 10-10-2022 ambulatory TAYA PEREA DO Facility:A Start: 11-01-2020 ambulatory TAYA Turneri ty:[facility] Start: 07-21-2020 End: 07-21-2020 Patient encounter procedure Neur Lab Main 2 [facility] Comment on above: Musculoskeletal Prob lonnie Start: 07-15-2020 End: 07-15-2020 Patient encounter procedure Samson Johansen Work Phone: [facility] Neurology Comment on above: Suprascapular monone uropathy, right (Primary Dx); Shoulder weakness; Numbness and tingling of both upper extremities; Chronic pain of both shoulders Start: 05-13-2020 End: 05-13-2020 Patient encounter procedure External Provider [facility] Start: 05-13-2020 Results Only External Provider [facility]ter [facility] Start: 05-12-2020 End: 05-12-2020 Patient encounter procedure External Provider [facility] Start: 05-12-2020 Results Only External Provider Exter nal[facility] Procedures Date Procedure Procedure Detail Performing Clinician Start: 07-21-2020 Nerve conduction studies 5-6 studies Samson Johansen Work Phone: Start: 05-13-2020 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 Provider Start: 05-13-2020 EXTERNAL PROCEDURE Exte rnal Provider Start: 05-12-2020 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 Provider History of repair of inguinal hernia S/P inguinal hernia repair TAYA PEREA DO Plan of Treatment Date Care Activity Detail Author Start: 03-08-2020 Influenza vaccination INFLUENZA (#1) [facility] Start: 2014 PROSTATE CANCER SCRE ENING DISCUSSION PROSTATE CANCER SCREENING DISCUSSION [facility] Start: 2009 Screening for malign ant neoplasm of colon [facility] Start: 2009 SHINGRIX VACCINE (1 of 2) SHINGRIX V ACCINE (1 of 2) [facility] Start: 2009 Tuberculosis screening [place] CANCER SCREENING,SEE MODIFIER [facility] Start: 2004 DIABETES SCREEN DIABETES SCREEN [facility] Start: 1994 LIPID SCREEN LIPID SCREEN [facility] Start: 1978 Urine microalbumin profile DTAP,TDAP,TD (1 - Tdap) [facility] Start: 1977 HEPATITIS C SCREENING HEPATITIS C SC REENING [facility] Start: 1977 HIV SCREENING HIV SCREENING [facility] End: 07-15-2021 EMG(NEURO/NI) EMG(NEURO/NI) EMG Routine Suprascapular mononeuropathy, right Shoulder weakness Numbness and tingling of both upper extremities Chronic pain of both shoulders 1 Occurrences starting 07/15/2020 until 07/15/2021 [facility] Comment on above: 1 Occurrences starti ng 07/15/2020 until 07/15/2021 [facility] Payers Date Payer Category Payer Private Health Insurance [id number] 2023 Private Health Insurance [id number] 2020 Unknown [id number] 2020 Unknown [facility] [id number] 2020-Present PPO [id number] 2019 Unknown [id number] 2017 Unknown MMO [employer]MO [employer] [id number] 2017-Present PPO [id number] 1959 Unknown [id number] 1959 Unknown [id number] 1959 Unknown [id number] 1959 Unknown [id number] 1960 Unknown [id number] 1960 Unknown [id number] 1960 Unknown [id number] 94 Social History Date Type Detail Facility Tobacco smoking stat [facility] Unknown if ever smoked [facility] Start: 1960 Sex Assigned At Not on file C [facility] Exposure to SARS-CoV -2 (event) Unable to assess [facility] Start: 04-13-2019 End: 07-15-2020 Tobacco smoking status ALIS Never smoker [facility] Start: 07-15-2020 Tobacco use and exposure Never used [facility] Start: 07-15-2020 Alcohol intake Lifetime non-d samantha (finding) [facility] Start: 07-15-2020 History SDOH Alcohol Frequency 1 [facility] Exposure to SARS-CoV -2 (event) Not sure [facility] Sex Assigned At Male [facility] Medical Equipment Procedure Code Equipment Code Equipment Origin al Text Equipment Identifier Dates See Instructions , Dispense One Touch ultra blue test strips, #100, UAD daily to test blood sugar, # 100 EA, 3 Refill(s), [id number] Diabetes, 181, cm, 02/10/21 16:04:00 EDT, Height, 68.6, kg, 02/10/21 16:04:00 EDT, Dosing Weight Start: 02-10-2021 See Instructions , Dispense UltraFine lancets, #100, use 1 lancet daily to check blood sugar, # 100 EA, 3 Refill(s), [facility]: [facility] Diabetes, 181, cm, 02/10/21 16:04:00 EDT, Height, 68.6, kg, 02/10/21 16:04:00 EDT, Dosing Weight Start: 02-10-2021 See Instructions , Dispense One Touch ultra blue test strips, #100, UAD daily to test blood sugar, # 100 EA, 3 Refill(s), Pharmacy: [facility] Diabetes, 181, cm, 02/10/21 16:04:00 EDT, Height, 68.6, kg, 02/10/21 16:04:00 EDT, Dosing Weight Start: 02-10-2021 See Instructions , Dispense UltraFine lancets, #100, use 1 lancet daily to check blood sugar, # 100 EA, 3 Refill(s), Pharmacy: [facility] Diabetes, 181, cm, 02/10/21 16:04:00 EDT, Height, 68.6, kg, 02/10/21 16:04:00 EDT, Dosing Weight Start: 02-10-2021 Clinical Notes 04-15-2023 to 04-22-2023 Laboratory Note Date & Type Note Facility 04-22-2023 Note HNO ID: [id number] Author: Andrews Felipe RN Service: Care Management Author Type: Registered Nurse Type: Care Mgt Progress Note Filed: 04/22/2023 1:58 PM Note Text: CARE MANAGEMENT DISCHARGE NOTE SERVICE DATE: April 22, 2023 SERVICE TIME: 1:44 PM Admission Date: 04/17/2023 LOS: 5 days Discharge Arrangement Discharge Arrangement: Home with Self Care Services Arranged Medical Services: Medical Care at Home, Other: See Comment (Home IV antibiotics with outpatient PICC care and labs.) Provider Name: [facility] outpatient infusion center Caregiver Assessment Caregiver is ready, willing and able to meet the patient's needs as recommended by the inter-professional team: Yes Name of Caregiver: Susan Rodriguez - spouse Transportation Arrangements Transportation Arrangements: Car Handoff Communication: Handoff to: Primary Care Physician Primary Care Physician Name/Phone: Taya ePrea [phone] Additional Information: [facility] personal service representative provided home IVAB education at bedside with pt and spouse, PICC and labs will be done at [facility] outpatient infusion center. SIGNATURE: Andrews Felipe RN PATIENT NAME: Aurelio Branchens DATE: April 22, 2023 TIME: 1:44 PM CONTACT #: [phone] [facility] 04-22-2023 Note HNO ID: [id number] Author: Betsy Villafuerte DO Service: Orthopaedic Surgery Author Type: Physician Type: Progress Notes Filed: 04/22/2023 7:00 AM Note Text: Orthopaedic INPATIENT PROGRESS NOTE PRIMARY SERVICE: Orthopaedic INTERVAL HPI: Postop day 5 status post IANDD right olecranon bursa Comfortable PICC in place, discharge today MEDICATIONS: Current Facility-Administered Medications Medication Dose Route Frequency acetaminophen 1,000 mg tab(s) (TYLENOL) 1,000 mg ORAL q 8 HR oxyCODONE IR 5-10 mg tab(s) (ROXICODONE) 5-10 mg ORAL q 3 H PRN HYDROmorphone 0.5 mg injection (DILAUDID) 0.5 mg INTRAVENOUS q 3 H PRN ondansetron 4 mg tab(s) (ZOFRAN) 4 mg ORAL q 6 H PRN Or ondansetron (PF) 4 mg injection (ZOFRAN) 4 mg INTRAVENOUS q 6 H PRN dextrose 40 % 15 g 15 g ORAL PRN Or glucagon 1 mg injection 1 mg INTRAMUSCULAR PRN Or dextrose 10% iv bolus 12.5 g INTRAVENOUS PRN insulin lispro injection (rapid acting) (HumaLOG) SUBCUTANEOUS w MEALS NaCl 0.9% iv flush bag 20 mL INTRAVENOUS PRN NaCl 0.9% iv infusion 75 mL/hr INTRAVENOUS CONTINUOUS lisinopril 10 mg tab(s) (ZESTRIL) 10 mg ORAL DAILY pantoprazole DR 40 mg tab(s) (PROTONIX) 40 mg ORAL DAILY (6 AM) insulin lispro injection (rapid acting) (HumaLOG) SUBCUTANEOUS AT BEDTIME buPROPion XL 150 mg tab(s) (WELLBUTRIN XL) 150 mg ORAL DAILY ceFAZolin iv piggyback 2 g in D5W (iso-osmotic) 100 mL (ANCEF) 2 g INTRAVENOUS q 8 HR LABS: Recent Labs 04/20/23 0632 NA 143 K 4.0 CHLOR 108* CO2 26 BUN 12 CREAT 0.85 GLUC 175* CA 9.3 PHYSICAL EXAM: BP 121/62 Pulse 80 Temp 36.7 ?C (98 ?F) (Oral) Resp 16 Ht 182.9 cm (6') Wt 64 kg (141 lb) SpO2 96% BMI 19.12 kg/m? Body mass index is 19.12 kg/m?. General appearance: Resting clean dry and intact Neurovascularly intact ASSESSMENT AND PLAN: Postop day 4 status post IANDD right elbow olecranon bursa Awaiting final infectious disease recommendations for long-term antibiotics. Ancef recommended with a PICC line x 6 weeks. Pain control Pneumatic compression devices P.o. diet Discharge planning F/U this week SIGNATURE: Betsy Villafuerte DATE of SERVICE: 04/21/2023 TIME of SERVICE: 0700 [facility] 04-21-2023 Note HNO ID: [id number] Author: Neil Calzada MD Service: Orthopaedic Surgery Author Type: Physician Type: Progress Notes Filed: 04/21/2023 11:53 AM Note Text: Orthopaedic INPATIENT PROGRESS NOTE PRIMARY SERVICE: Orthopaedic INTERVAL HPI: Postop day 4 status post IANDD right olecranon bursa Comfortable No chest pain or shortness of breath No events overnight Has his PICC line MEDICATIONS: Current Facility-Administered Medications Medication Dose Route Frequency acetaminophen 1,000 mg tab(s) (TYLENOL) 1,000 mg ORAL q 8 HR oxyCODONE IR 5-10 mg tab(s) (ROXICODONE) 5-10 mg ORAL q 3 H PRN HYDROmorphone 0.5 mg injection (DILAUDID) 0.5 mg INTRAVENOUS q 3 H PRN ondansetron 4 mg tab(s) (ZOFRAN) 4 mg ORAL q 6 H PRN Or ondansetron (PF) 4 mg injection (ZOFRAN) 4 mg INTRAVENOUS q 6 H PRN dextrose 40 % 15 g 15 g ORAL PRN Or glucagon 1 mg injection 1 mg INTRAMUSCULAR PRN Or dextrose 10% iv bolus 12.5 g INTRAVENOUS PRN insulin lispro injection (rapid acting) (HumaLOG) SUBCUTANEOUS w MEALS NaCl 0.9% iv flush bag 20 mL INTRAVENOUS PRN NaCl 0.9% iv infusion 75 mL/hr INTRAVENOUS CONTINUOUS lisinopril 10 mg tab(s) (ZESTRIL) 10 mg ORAL DAILY pantoprazole DR 40 mg tab(s) (PROTONIX) 40 mg ORAL DAILY (6 AM) insulin lispro injection (rapid acting) (HumaLOG) SUBCUTANEOUS AT BEDTIME buPROPion XL 150 mg tab(s) (WELLBUTRIN XL) 150 mg ORAL DAILY ceFAZolin iv piggyback 2 g in D5W (iso-osmotic) 100 mL (ANCEF) 2 g INTRAVENOUS q 8 HR LABS: Recent Labs 04/20/23 0632 04/19/23 0518 WBC -- 6.48 HB -- 11.4* HCT -- 34.6* PLT -- 259 NA 143 143 K 4.0 4.1 CHLOR 108* 109* CO2 26 30 BUN 12 12 CREAT 0.85 0.95 GLUC 175* 157* CA 9.3 9.0 PHYSICAL EXAM: BP 152/73 Pulse 64 Temp 36.7 ?C (98 ?F) (Oral) Resp 16 Ht 182.9 cm (6') Wt 64 kg (141 lb) SpO2 95% BMI 19.12 kg/m? Body mass index is 19.12 kg/m?. General appearance: Resting clean dry and intact Neurovascularly intact ASSESSMENT AND PLAN: Postop day 3 status post IANDD right elbow olecranon bursa Awaiting final infectious disease recommendations for long-term antibiotics. Ancef recommended with a PICC line x 6 weeks. Pain control Pneumatic compression devices P.o. diet Discharge planning SIGNATURE: Neil Calzada MD DATE of SERVICE: 04/20/2023 TIME of SERVICE: 10:06 AM [facility] 04-20-2023 Note HNO ID: [id number] Author: Ifrah Valladares LSW Service: Care Management Author Type: Assistant Art Director Type: Care Mgt Progress Note Filed: 04/20/2023 3:33 PM Note Text: Script provided by ID, this has been sent to [facility] via [facility] 04-20-2023 Note HNO ID: [id number] Author: Neil Calzada MD Service: Orthopaedic Surgery Author Type: Physician Type: Progress Notes Filed: 04/20/2023 10:07 AM Note Text: Orthopaedic INPATIENT PROGRESS NOTE PRIMARY SERVICE: Orthopaedic INTERVAL HPI: Postop day 3 status post IANDD right olecranon bursa Comfortable No chest pain or shortness of breath No events overnight Has his PICC line MEDICATIONS: Current Facility-Administered Medications Medication Dose Route Frequency acetaminophen 1,000 mg tab(s) (TYLENOL) 1,000 mg ORAL q 8 HR oxyCODONE IR 5-10 mg tab(s) (ROXICODONE) 5-10 mg ORAL q 3 H PRN HYDROmorphone 0.5 mg injection (DILAUDID) 0.5 mg INTRAVENOUS q 3 H PRN ondansetron 4 mg tab(s) (ZOFRAN) 4 mg ORAL q 6 H PRN Or ondansetron (PF) 4 mg injection (ZOFRAN) 4 mg INTRAVENOUS q 6 H PRN dextrose 40 % 15 g 15 g ORAL PRN Or glucagon 1 mg injection 1 mg INTRAMUSCULAR PRN Or dextrose 10% iv bolus 12.5 g INTRAVENOUS PRN insulin lispro injection (rapid acting) (HumaLOG) SUBCUTANEOUS w MEALS vancomycin dosing and monitoring per pharmacy OTHER As Directed NaCl 0.9% iv flush bag 20 mL INTRAVENOUS PRN NaCl 0.9% iv infusion 75 mL/hr INTRAVENOUS CONTINUOUS lisinopril 10 mg tab(s) (ZESTRIL) 10 mg ORAL DAILY pantoprazole DR 40 mg tab(s) (PROTONIX) 40 mg ORAL DAILY (6 AM) insulin lispro injection (rapid acting) (HumaLOG) SUBCUTANEOUS AT BEDTIME buPROPion XL 150 mg tab(s) (WELLBUTRIN XL) 150 mg ORAL DAILY vancomycin iv piggyback 1 g in D5W 200 mL (VANCOCIN) 1 g INTRAVENOUS q 12 HR LABS: Recent Labs 04/20/23 0632 04/19/23 0518 04/18/23 0513 04/17/23 1917 WBC -- 6.48 10.68 6.69 HB -- 11.4* 10.7* 11.4* HCT -- 34.6* 32.3* 34.1* PLT -- 259 257 289 NA 143 143 141 -- K 4.0 4.1 4.2 -- CHLOR 108* 109* 108* -- CO2 26 30 24 -- BUN 12 12 17 -- CREAT 0.85 0.95 0.98 -- GLUC 175* 157* 169* -- CA 9.3 9.0 8.6 -- PHYSICAL EXAM: BP 133/66 Pulse 61 Temp 36.1 ?C (97 ?F) (Temporal) Resp 16 Ht 182.9 cm (6') Wt 64 kg (141 lb) SpO2 99% BMI 19.12 kg/m? Body mass index is 19.12 kg/m?. General appearance: Resting clean dry and intact Neurovascularly intact ASSESSMENT AND PLAN: Postop day 3 status post IANDD right elbow olecranon bursa Awaiting final infectious disease recommendations for long-term antibiotics. Currently on vancomycin with a PICC line. Pain control Pneumatic compression devices P.o. diet Discharge planning SIGNATURE: Neil Calzada MD DATE of SERVICE: 04/20/2023 TIME of SERVICE: 10:06 AM [facility] 04-20-2023 Note HNO ID: [id number] Author: Note, Interface Service: ? Author Type: ? Type: Progress Notes Filed: 04/20/2023 5:50 AM Note Text: Epic Scheduled Downtime: 04/20/2023 1:00:00 AM to 04/20/2023 1:28:00 AM [facility] 04-19-2023 Note HNO ID: [id number] Author: Cynthia Mohamud RN Service: PICC Team Author Type: Registered Nurse Type: Procedures Filed: 04/19/2023 1:48 PM Note Text: PICC NURSE INSERTION NOTE DATE OF PROCEDURE: April 19, 2023 TIME OF PROCEDURE: 1300 ORDERING PHYSICIAN: Dr Jaquez INFORMED CONSENT: Obtained per hospital policy. INDICATION FOR LINE PLACEMENT: IV access COPAT CONDITION OF LINE PLACEMENT: Sterile PRIMARY PROCEDURALIST: Lexi Zamora RN SUPERVISOR METER SHOP: Cynthia Mohamud RN PRE-PROCEDURE REVIEW ALLERGIES Allergen Reactions Erythromycin Other: See Comments Red eyes Known History of Upper Venous Thrombosis: No Known History of Permanent Pacemaker or Automated Implanted Cardiac Device: No Previous Breast Surgery of Lymph Node Dissection: No Estimated Glomerular Filtration Rate Date Value Ref Range Status 04/19/2023 89 >=60 mL/min/1.73m? Final Comment: Estimated Glomerular Filtration Rate (eGFR) is calculated using the 2020 CKD-EPI creatinine equation. This equation utilizes serum creatinine, sex, and age as parameters. The creatinine assay has traceable calibration to isotope dilution-mass spectrometry. Refer to KDIGO guidelines for clinical interpretation. In patients with unstable renal function, e.g. those with acute kidney injury, the eGFR may not accurately reflect actual GFR. History of Renal Disease: No Ultrasound Assessment Complete: Yes No PROCEDURE NARRATIVE SAFE PRACTICE Hand Hygiene per Hospital Policy: Yes Skin Preparation Unit Dose Applicator Used: Chloraprep (CHG + alcohol), allowed to dry. Procedure Surface Cleansed with Antimicrobial Wipes: Yes Barriers Used by Proceduralist and all Assisting Personnel: Yes UNIVERSAL PROTOCOL / SAFETY CHECKLIST Procedure to be Performed: PICC insertion Sign In: A Moment of CARE was completed. Personnel directly involved with the procedure wore the appropriate PPE (Personal Protective Equipment). No special equipment needed. Patient/Surrogate Stated/Verified: PATIENT VERIFIED(optional for EMERGENT procedures): Patient name, Date of , Relevant allergies, and The intended procedure Time Out Communication: Intended patient and procedure match the source documents. Consent documented and matches the intended procedure. Relevant labs, photos, and/or imaging studies have been reviewed. Correct side/site marked and visible. Medications required for procedure verified. No fire risk assessment and interventions applicable. No implant(s) inserted. Sign Out: SIGN OUT (optional for EMERGENT procedures): No specimen collected. Cynthia Mohamud RN CATHETER PLACEMENT Brand: [employer] Lot: [id number] Number of Lumens: 1 Type of PICC: Power Injectable PICC Lumen Size: 4 Armenian PLACEMENT TECHNIQUE Lidocaine: Yes, Lidocaine 1% Volume 2 mL Subcutaneous Modified Seldinger Technique Used to Place Line via the Left Basilic Ultrasound Guidance: Yes Number of Attempts at Insertion: 1 Ensured control of guidewire during all aspects of the procedure: Yes Accounted for entire guidewire upon removal: Yes Internal Length: 41 cm External Length: 0 cm Trim Length: 41 cm Mid-Arm Circumference: 27 centimeters Post Insertion Pain Level Related to Procedure: 0 Action Taken to Address Pain: None needed Verified Placement: Blood return and flushes with ease and Tip location system or device indicates the tip is located in the SVC/CAJ. Line was Flushed with 10 mL normal saline Line Secured with: Securement device Sterile Dressing Applied and Dated: Yes Sterile Caps on all Ports Prior to Leaving Procedure Area: Yes, Disinfection caps applied SPECIMENS: None COMPLICATIONS: None Patient Education Materials: Placed in chart [facility] Line Insertion checklist was utilized during this procedure. QUESTIONS or PROBLEMS: Call Vocera Vascular Access Nurse SIGNATURE: Cynthia Mohamud RN PATIENT NAME: Aurelio Rodriguez DATE: April 19, 2023 TIME: 1:45 PM PAGER/CONTACT PHONE: [facility] 04-19-2023 Note HNO ID: [id number] Author: Andrews Felipe RN Service: Care Management Author Type: Registered Nurse Type: Care Mgt Progress Note Filed: 04/19/2023 3:48 PM Note Text: CARE MANAGEMENT PROGRESS NOTE SERVICE DATE: 04/19/2023 SERVICE TIME: 10:39 AM LOS: 2 days [place] of Choice Given: Yes Level of Care Discussed: Home Care Financial Disclosure Provided: Yes Provider List: Home Care Pharmacy Provider list within the patient's requested geographic area shared with the patient/family: Yes within: 25 miles of zip code: [address] [facility] unable to accept as pt is out of their service area. Pt and spouse request referral to [facility], referral sent. Per ID, still pending sensitivities to determine atb course. Plan for PICC today. Case management to follow for discharge needs. [facility] unable to accept, called pt and spouse, request referrals be sent to [facility] and [facility], and if neither is able to accept they request to just go down the list. Referrals sent. Per spouse, they are also open to going to infusion center in [place] for dressing changes. [address] [facility] agencies have declined pt. Called [facility] infusion center, they will be able to do PICC care and lab draws with orders, they request their order form is filled out by ordering physician, received form by fax and attached to pt chart, Dr. Jaquez notified. D/C plan will be home with home infusion of IVAB through [facility] with PICC care and labs through [facility]. SIGNATURE: Andrews Felipe RN PATIENT NAME: Aurelio Rodriguez DATE: April 19, 2023 TIME: 10:17 AM PAGER/CONTACT #: [phone] [facility] 04-19-2023 Note HNO ID: [id number] Author: Telma Jaquez MD Service: Infectious Disease Author Type: Physician Type: Progress Notes Filed: 04/19/2023 10:09 AM Note Text: INFECTIOUS DISEASE CONSULT PROGRESS NOTE SERVICE DATE: 04/19/2023 SERVICE TIME: 10:07 AM Subjective INTERVAL HISTORY: Alert. Overall clinically stable. Staphylococcus aureus isolated from the intraoperative culture. Formal sensitivities will be available tomorrow. Currently on parenteral vancomycin empirically and tolerating well. Current Facility-Administered Medications Medication Dose Route Frequency acetaminophen 1,000 mg tab(s) (TYLENOL) 1,000 mg ORAL q 8 HR dextrose 40 % 15 g 15 g ORAL PRN Or glucagon 1 mg injection 1 mg INTRAMUSCULAR PRN Or dextrose 10% iv bolus 12.5 g INTRAVENOUS PRN HYDROmorphone 0.5 mg injection (DILAUDID) 0.5 mg INTRAVENOUS q 3 H PRN insulin lispro injection (rapid acting) (HumaLOG) SUBCUTANEOUS w MEALS insulin lispro injection (rapid acting) (HumaLOG) SUBCUTANEOUS AT BEDTIME lidocaine 10 mg/mL (1 %) 10-20 mg injection (XYLOCAINE) 1-2 mL INTRADERMAL ONCE lisinopril 10 mg tab(s) (ZESTRIL) 10 mg ORAL DAILY NaCl 0.9% iv flush bag 20 mL INTRAVENOUS PRN NaCl 0.9% iv infusion 75 mL/hr INTRAVENOUS CONTINUOUS ondansetron 4 mg tab(s) (ZOFRAN) 4 mg ORAL q 6 H PRN Or ondansetron (PF) 4 mg injection (ZOFRAN) 4 mg INTRAVENOUS q 6 H PRN oxyCODONE IR 5-10 mg tab(s) (ROXICODONE) 5-10 mg ORAL q [address] 40 mg tab(s) (PROTONIX) 40 mg ORAL DAILY (6 AM) traMADol 50 mg tab(s) (ULTRAM) 50 mg ORAL q 6 H PRN vancomycin 750 mg in D5W 250 mL Vial-Bag (VANCOCIN) 0.75 g INTRAVENOUS q 12 HR vancomycin dosing and monitoring per pharmacy OTHER As Directed Active Antimicrobials (From admission, onward) Start Stop 04/17/231999 vancomycin 750 mg in D5W 250 mL Vial-Bag (VANCOCIN) 0.75 g, INTRAVENOUS, EVERY 12 HOURS -- 04/17/231929 vancomycin dosing and monitoring per pharmacy OTHER, DIRECTED -- Objective PHYSICAL EXAM: BP 129/57 Pulse 68 Temp (Src) 98 (Oral) Resp 18 Ht 6' 0 (1.83m) Wt 141 lb (64.0kg) SpO2 96% BMI 19.12 kg/(m2). O2 Therapy: Room Air Temp last 24 hours: Temp (24hrs), Av.8 ?C (98.2 ?F), Min:36.7 ?C (98 ?F), Max:36.9 ?C (98.4 ?F) Alert responsive does not appear toxic right arm postop dressings are in place. 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 We will await the final sensitivity of the Staphylococcus aureus to dictate the course of antibiotic regiment. SIGNATURE: Telma Jaquez MD PATIENT NAME: Aurelio Rodriguez DATE: April 19, 2023 TIME: 10:07 AM . [facility] 04-19-2023 Note HNO ID: [id number] Author: Krystal Davis MD Service: Hospital Medicine Author Type: Physician Type: Progress Notes Filed: 04/19/2023 3:14 PM Note Text: INPATIENT PROGRESS NOTE SERVICE DATE: 04/19/2023 SERVICE TIME: 1000 AM PRIMARY SERVICE: Hospital Medicine Subjective INTERVAL HPI: Patient remained stable overnight. Subjectively when assessed the patient at the bedside patient reported that he has right elbow pain intermittently. He reported getting better with the pain medications but he intermittently gets the pain of around 4-5/10. No other complaints. Current Facility-Administered Medications Medication Dose Route Frequency acetaminophen 1,000 mg tab(s) (TYLENOL) 1,000 mg ORAL q 8 HR oxyCODONE IR 5-10 mg tab(s) (ROXICODONE) 5-10 mg ORAL q 3 H PRN HYDROmorphone 0.5 mg injection (DILAUDID) 0.5 mg INTRAVENOUS q 3 H PRN ondansetron 4 mg tab(s) (ZOFRAN) 4 mg ORAL q 6 H PRN Or ondansetron (PF) 4 mg injection (ZOFRAN) 4 mg INTRAVENOUS q 6 H PRN dextrose 40 % 15 g 15 g ORAL PRN Or glucagon 1 mg injection 1 mg INTRAMUSCULAR PRN Or dextrose 10% iv bolus 12.5 g INTRAVENOUS PRN insulin lispro injection (rapid acting) (HumaLOG) SUBCUTANEOUS w MEALS vancomycin dosing and monitoring per pharmacy OTHER As Directed vancomycin 750 mg in D5W 250 mL Vial-Bag (VANCOCIN) 0.75 g INTRAVENOUS q 12 HR NaCl 0.9% iv flush bag 20 mL INTRAVENOUS PRN NaCl 0.9% iv infusion 75 mL/hr INTRAVENOUS CONTINUOUS lisinopril 10 mg tab(s) (ZESTRIL) 10 mg ORAL DAILY pantoprazole DR 40 mg tab(s) (PROTONIX) 40 mg ORAL DAILY (6 AM) insulin lispro injection (rapid acting) (HumaLOG) SUBCUTANEOUS AT BEDTIME buPROPion XL 150 mg tab(s) (WELLBUTRIN XL) 150 mg ORAL DAILY Objective PHYSICAL EXAM: BP 134/68 Pulse 65 Temp (Src) 97 (Temporal) Resp 16 Ht 6' 0 (1.83m) Wt 141 lb (64.0kg) SpO2 98% BMI 19.12 kg/(m2). O2 Therapy: Room Air Physical Exam Performed General-sitting on the chair in no acute distress. Heart-regular rate and rhythm. Normal S1 and S2 heard. No murmurs/rubs/gallops Lungs-clear to auscultation bilaterally. No wheezes/crackles. Abdomen-soft and nontender. Normal bowel sounds Neuro-alert and oriented x3. No new neurological deficits. Extremities-right arm in the sling. No surrounding edema noted. Able to move DATA: Diagnostic tests reviewed for today's visit: DATA: Recent Labs 04/19/23 1140 04/19/23 0635 04/18/23 2112 04/18/23 1629 04/18/23 1037 PCGLUCOSE 244* 147* 205* 96 289* LABORATORY TESTS: CBC: Recent Labs 04/19/2351704/18/2351204/17/23 1917 WBC 6.48 10.68 6.69 HB 11.4* 10.7* 11.4* PLT 259 257 289 MCV 89.4 89.7 89.5 NEUTP -- 87.0 75.1 ABSNEUT -- 9.29* 5.02 LYMPHP -- 6.2 11.7 CHEM: Recent Labs 04/19/2351704/18/2351204/17/23 1521 NA 143 141 139 K 4.1 4.2 4.4 CA 9.0 8.6 9.4 ANION 4* 9 7 CHLOR 109* 108* 107 CO2 30 24 25 GLUC 157* 169* 152* BUN 12 17 20 CREAT 0.95 0.98 1.03 HEPATIC: No results for input(s): ALT , AST , TBILI , ALKPHOS , ALB , TPROT , LIPASE in the last 168 hours. URINALYSIS:No results for input(s): SPGR , UBACTERIA , LEUKEST , SSA , UWBC , URBC , UHB , UPROT , UGLUC , UKET in the last 168 hours. Invalid input(s): NITR COAG: No results for input(s): APTT , INR in the last 168 hours. CARDIAC: No results for input(s): CKMB , CKMBP , TROPT , PBNP in the last 168 hours. Most recent labs and imaging results. 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 Intra-Op cultures growing staph pending susceptibility. Currently on vancomycin. Ortho surgery and ID on board. [] Discussed with ID. Plan to place PICC line today. [] Discharge antibiotics to be decided after susceptibility results are back. [] Continue IV vancomycin. Continue to monitor renal function while on vancomycin. [] Pain control-oxycodone every 3 hours, IV Dilaudid 0.5 mg every 3 hours as needed. #Diabetes-sliding scale insulin. #Hypertension-continue home lisinopril 10 mg #Normocytic anemia- Hemoglobin-10.7. Patient reported recent colonoscopy showed polyps which have been biopsied. [] Outpatient follow-up. [] Transfusion threshold less than 7 Code-full DVT prophylaxis-SCDs Diet-carb controlled diet. Medication and Non-Pharmacologic VTE Prophylaxis/Anticoagulants 04/17/231744 vte current anticoag therapy ([place]) 04/17/231744 pneumatic compression stockings ([place] 04/17/231744 activity - mobilize patient ([place]) VTE Prophylaxis: VTE prophylaxis appropriate SIGNATURE: Krystal Davis MD PATIENT NAME: Aurelio Rodriguez DATE: April 19, 2023 TIME: 2:48 PM [facility] 04-19-2023 Note HNO ID: [id number] Author: Violet Torres PA-C Service: Orthopaedic Surgery Author Type: Physician Staff Reporter Type: Progress Notes Filed: 04/19/2023 6:14 AM Note Text: Attestation signed by Betsy Villafuerte DO at 04/22/2023 6:58 AM Agree with TEX note ORTHOPAEDIC SURGERY POSTOP PROGRESS NOTE Surgery Date: 04/17/2023 Surgeon(s) and Staff Reporter(s): Surgeon(s) and Role: * Betsy Villafuerte DO - Primary * Jeanette Méndez DO - Resident - Assisting * Kvng Appiah MD - Resident - Assisting Procedure(s): Procedure(s) (LRB): INCISION AND DRAINAGE ELBOW BURSA (Right) Subjective: Patient is postop day 2. Pain is controlled with pain medication. No acute events overnight. Tolerating food and drink well. Vitals: BP 124/64 Pulse 62 Temp 36.8 ?C (98.2 ?F) (Oral) Resp 18 Ht 182.9 cm (6') Wt 64 kg (141 lb) SpO2 94% BMI 19.12 kg/m? BMI: Estimated body mass index is 19.12 kg/m? as calculated from the following: Height as of this encounter: 182.9 cm (6'). Weight as of this encounter: 64 kg (141 lb). I/O: Intake/Output Summary (Last 24 hours) at 04/19/2023 0552 Last data filed at 04/18/2023 2211 Gross per 24 hour Intake 550 ml Output -- Net 550 ml Problem List: ACTIVE PROBLEM LIST Preop Testing Infected Olecranon Bursa, Right Physical Exam: Examination of patient's right upper extremity demonstrates long-arm splint in place. Splint is clean dry and intact. Sensation and motor function intact distally. Brisk cap refill. Labs: CBC, Coags, BMP, Mg, Phos Recent Labs 04/19/23 0518 04/18/23 0513 04/17/23 1917 04/17/23 1521 WBC 6.48 10.68 6.69 -- HB 11.4* 10.7* 11.4* 12.3* HCT 34.6* 32.3* 34.1* -- PLT 259 257 289 -- NA -- 141 -- 139 K -- 4.2 -- 4.4 CHLOR -- 108* -- 107 CO2 -- 24 -- 25 BUN -- 17 -- 20 CREAT -- 0.98 -- 1.03 GLUC -- 169* -- 152* CA -- 8.6 -- 9.4 Impression/Plan: S/P Procedure(s) (LRB): INCISION AND DRAINAGE ELBOW BURSA (Right) on 04/17/2023 - Physical Therapy Evaluation - DVT prophylaxis: Intermittent pneumatic compression device (IPCD) - Pain control - Antibiotics: Continuing Antibiotics because of Osteomyelis - Anticipated D/C: Today - Case management for discharge planning Patient's cultures are growing gram-positive cocci. ID is recommending long-term IV antibiotics with vancomycin. Once patient receives PICC line and has home antibiotics set up he is stable for discharge from an orthopedic standpoint. Follow-up outpatient. SIGNATURE: Violet Torres PA-C PATIENT NAME: Aurelio Rodriguez DATE: April 19, 2023 TIME: 5:52 AM PAGER/CONTACT #: [phone] [facility] 04-18-2023 Note HNO ID: [id number] Author: Yajaira Marks RN Service: Care Management Author Type: Registered Nurse Type: Care Mgt Progress Note Filed: 04/18/2023 3:46 PM Note Text: CARE MANAGEMENT PROGRESS NOTE SERVICE DATE: 04/18/2023 SERVICE TIME: 1530 LOS: 1 day Chart Reviewed. Elective Surgery- s/p I AND D right elbow bursa by on 04/17/23 for olecranon osteomylitis. IS A/Ox 4 and usually independent in all ADL's. Lives with Susan Rodriguez [phone] who is able to provide physical assistance and transportation as needed. Home has 3 steps to enter and another 12 steps to reach bed and bath rooms. Has a cane and wheeled walker. Has med and Rx coverage. PCP is . [place] in [facility]. PT/OT eval and tx. ID consulted and are recommending fpc IV Atb therapy. Discussed options with pt who is agreeable to have he and his taught how to give IV Atb's at home. May need [facility] for Picc Line changes and Drsg change. Referrals sent to [facility] and [facility]. Sx Cx's pending- will need a Picc line placed. D/C plan is Home with and fpc IV Atb's when med cleared. Will cont to follow and assist with safe d/c planning, SIGNATURE: Yajaira Marks RN PATIENT NAME: Aurelio Rodriguez DATE: April 18, 2023 TIME: 3:30 PM PAGER/CONTACT #: [phone] [facility] 04-18-2023 Note HNO ID: [id number] Author: Yajaira Marks RN Service: Care Management Author Type: Registered Nurse Type: Care Mgt Progress Note Filed: 04/18/2023 3:30 PM Note Text: CARE MANAGEMENT PROGRESS NOTE SERVICE DATE: 04/18/2023 SERVICE TIME: 1530 LOS: 1 day [place] of Choice Given: Yes Level of Care Discussed: Home Care;Other: See Comment (Home Infusion Pharmacy) Financial Disclosure Provided: Yes Provider List: Home Care;Other: See Comment ([facility]) SIGNATURE: Yajaira Marks RN PATIENT NAME: Aurelio Rodriguez DATE: April 18, 2023 TIME: 3:30 PM PAGER/CONTACT #: [phone] [facility] 04-18-2023 Note HNO ID: [id number] Author: Tamra Mike DO Service: Hospital Medicine Author Type: Physician Type: Progress Notes Filed: 04/18/2023 2:49 PM Note Text: INPATIENT CONSULT PROGRESS NOTE PRIMARY SERVICE: Orthopedics Subjective Patient denies any acute complaints at this time. Current Facility-Administered Medications Medication Dose Route Frequency acetaminophen 1,000 mg tab(s) (TYLENOL) 1,000 mg ORAL q 8 HR traMADol 50 mg tab(s) (ULTRAM) 50 mg ORAL q 6 H PRN oxyCODONE IR 5-10 mg tab(s) (ROXICODONE) 5-10 mg ORAL q 3 H PRN HYDROmorphone 0.5 mg injection (DILAUDID) 0.5 mg INTRAVENOUS q 3 H PRN ondansetron 4 mg tab(s) (ZOFRAN) 4 mg ORAL q 6 H PRN Or ondansetron (PF) 4 mg injection (ZOFRAN) 4 mg INTRAVENOUS q 6 H PRN dextrose 40 % 15 g 15 g ORAL PRN Or glucagon 1 mg injection 1 mg INTRAMUSCULAR PRN Or dextrose 10% iv bolus 12.5 g INTRAVENOUS PRN insulin lispro injection (rapid acting) (HumaLOG) SUBCUTANEOUS w MEALS vancomycin dosing and monitoring per pharmacy OTHER As Directed vancomycin 750 mg in D5W 250 mL Vial-Bag (VANCOCIN) 0.75 g INTRAVENOUS q 12 HR NaCl 0.9% iv flush bag 20 mL INTRAVENOUS PRN NaCl 0.9% iv infusion 75 mL/hr INTRAVENOUS CONTINUOUS lisinopril 10 mg tab(s) (ZESTRIL) 10 mg ORAL DAILY pantoprazole DR 40 mg tab(s) (PROTONIX) 40 mg ORAL DAILY (6 AM) insulin lispro injection (rapid acting) (HumaLOG) SUBCUTANEOUS AT BEDTIME Objective PHYSICAL EXAM: BP 116/66 Pulse 70 Temp (Src) 98.1 (Oral) Resp 16 Ht 6' 0 (1.83m) Wt 141 lb (64.0kg) SpO2 94% BMI 19.12 kg/(m2). O2 Therapy: Room Air General: Alert and oriented, no distress, pleasant and cooperative. HEENT: EOM intact, moist mucous membranes, trachea midline, absent scleral icterus Heart: Regular, normal S1 and S2, no murmurs, rubs, or gallops Lungs: Clear to auscultation bilaterally, no wheezing, crackles, rhonchi, no accessory muscle use Abdomen: Soft, non tender, non distended, no guarding, non rigid Extremities: Right arm is in a sling. Neuro: CN II-XII intact, no focal neurological deficits DATA: LABORATORY TESTS: CBC: Recent Labs 04/18/23 0504/17/23 1917 04/17/23 1521 WBC 10.68 6.69 -- HB 10.7* 11.4* 12.3* PLT 257 289 -- MCV 89.7 89.5 -- NEUTP 87.0 75.1 -- ABSNEUT 9.29* 5.02 -- LYMPHP 6.2 11.7 -- CHEM: Recent Labs 04/18/23 0513 04/17/23 1521 NA 141 139 K 4.2 4.4 CA 8.6 9.4 ANION 9 7 CHLOR 108* 107 CO2 24 25 GLUC 169* 152* BUN 17 20 CREAT 0.98 1.03 HEPATIC: No results for input(s): ALT , AST , TBILI , ALKPHOS , ALB , TPROT , LIPASE in the last 168 hours. DATA: Diagnostic tests reviewed for today's visit: Most recent labs and imaging results. 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 Acute Olecranon osteomyelitis. Follow Ortho recs. Intraoperative cultures are showing gram-positive cocci, Follow speciation. Continue diabetes. Vancomycin IV as per ID. Monitor renal function daily while on vancomycin. Dilaudid 0.5 mg IV every 3 hours as needed. Diabetes. Insulin for elevated glucose Hypertension. Continue home lisinopril 10 mg p.o. daily. Normocytic anemia. Patient reports recent outpatient colonoscopy where a few polyps were resected. He said he is waiting up for the pathology reports. She will follow-up outpatient. CODE STATUS: Code Status: Not on file Plan of care discussed with: Provider, RN, Patient. Disclaimer This dictation was created using voice recognition software. Phonetic and/or minor grammatical errors may exist. SIGNATURE: Tamra Mike DO PATIENT NAME: Aurelio Rodriguez DATE: 04/18/2023 TIME: 2:43 PM [facility] 04-18-2023 Note HNO ID: [id number] Author: Sharla Ryan RN Service: Nursing Author Type: Registered Nurse Type: Progress Notes Filed: 04/18/2023 9:30 AM Note Text: Pt is oob in room with 1 assist . No complaints at this time will monitor [facility] 04-18-2023 Note HNO ID: [id number] Author: Violet Torres PA-C Service: Orthopaedic Surgery Author Type: Physician Staff Reporter Type: Progress Notes Filed: 04/18/2023 7:29 AM Note Text: Attestation signed by Betsy Villafuerte DO at 04/22/2023 6:58 AM Agree with TEX note ORTHOPAEDIC SURGERY POSTOP PROGRESS NOTE Surgery Date: 04/17/2023 Surgeon(s) and Staff Reporter(s): Surgeon(s) and Role: * Betsy Villafuerte, DO - Primary * Jeanette Méndez DO - Resident - Assisting * Kvng Appiah MD - Resident - Assisting Procedure(s): Procedure(s) (LRB): INCISION AND DRAINAGE ELBOW BURSA (Right) Subjective: Patient is postop day 1. States his elbow is sore but tolerable. Denies chest pain or shortness of breath. No other concerns at this time. Vitals: BP 111/60 Pulse 73 Temp 36.8 ?C (98.2 ?F) (Oral) Resp 16 Ht 182.9 cm (6') Wt 64 kg (141 lb) SpO2 96% BMI 19.12 kg/m? BMI: Estimated body mass index is 19.12 kg/m? as calculated from the following: Height as of this encounter: 182.9 cm (6'). Weight as of this encounter: 64 kg (141 lb). I/O: Intake/Output Summary (Last 24 hours) at 04/18/2023 0705 Last data filed at 04/18/2023 0344 Gross per 24 hour Intake 1600 ml Output 805 ml Net 795 ml Problem List: ACTIVE PROBLEM LIST Preop Testing Infected Olecranon Bursa, Right Physical Exam: Examination of patient's right upper extremity demonstrates her arm splint in place. Splint is clean dry and intact. Sensation intact distally. Able to move all fingers. Labs: CBC, Coags, BMP, Mg, Phos Recent Labs 04/18/23 0513 04/17/23 1917 04/17/23 1521 WBC 10.68 6.69 -- HB 10.7* 11.4* 12.3* HCT 32.3* 34.1* -- PLT 257 289 -- NA 141 -- 139 K 4.2 -- 4.4 CHLOR 108* -- 107 CO2 24 -- 25 BUN 17 -- 20 CREAT 0.98 -- 1.03 GLUC 169* -- 152* CA 8.6 -- 9.4 Impression/Plan: S/P Procedure(s) (LRB): INCISION AND DRAINAGE ELBOW BURSA (Right) on 04/17/2023 - Physical Therapy Evaluation - DVT prophylaxis: Intermittent pneumatic compression device (IPCD) - Pain control - Antibiotics: Continuing Antibiotics because of Awaiting intra-op culture results; Suspected Infection - Anticipated D/C: Tomorrow - Case management for discharge planning Patient is postop day 1 status post irrigation and debridement of right elbow bursa. At time of surgery it was noted that there was concern for chronic osteomyelitis. Infectious disease has been consulted. Await further recommendation in regards to oral versus IV antibiotics. If the patient needs IV antibiotics he will need PICC line placed prior to discharge. No growth on intraoperative cultures at this time. We will continue to follow. Maintain splint operative extremity. Okay to do hand and finger range of motion as tolerated. Nonweightbearing operative extremity. SIGNATURE: Violet Torres PA-C PATIENT NAME: Aurelio Rodriguez DATE: April 18, 2023 TIME: 7:05 AM PAGER/CONTACT #: ETX#[phone] [facility] 04-17-2023 Note HNO ID: [id number] Author: Clyde Moreno AA Service: ? Author Type: Geophysical Laboratory Supervisor Type: Anesthesia Procedure Notes Filed: 04/17/2023 3:43 PM Note Text: ANESTHESIOLOGY PROCEDURE NOTE Airway General Information Procedure Start Time/Medication Administration: 04/17/2023 3:31 PM Procedure End Time: 04/17/2023 3:32 PM Patient location during procedure: OR Timeout Performed Pre-procedure: timeout performed Consent Obtained: Yes Patient identity confirmed: arm band, family and patient Staffing Anesthesiologist: Cesar Lambert DO CAA: Clyde Moreno AA Indications and Patient Condition Indications for airway management: anesthesia Preoxygenated: yes anesthesia circuit Patient position: sniffing Method: asleep Final Airway Details Final airway type: supraglottic airway Number of attempts at approach: 1 Final Supraglottic Airway: LMA Unique Size 4 Seal Adequate: yes Airway not difficult SIGNATURE: ELY Zelaya PATIENT NAME: Aurelio Rodriguez DATE: April 17, 2023 TIME: 3:42 PM CSN: [id number] [facility] 04-16-2023 Note HNO ID: [id number] Author: Kate Wiley RN Service: Nursing Author Type: Registered Nurse Type: Progress Notes Filed: 04/16/2023 4:12 PM Note Text: PRE-PROCEDURE INSTRUCTIONS TO PREPARE FOR YOUR PROCEDURE: Your arrival time for your procedure is 1445. Do NOT eat any solid foods after MIDNIGHT the night prior to your procedure - this includes gum or mints. You can drink clear liquids* up until 1245, which is 2 hours before your arrival time. *Clear liquids = water, carbohydrate drink (sports drink that is clear or yellow in color), Ensure Pre-Surgery (given by PAULINE or your DrJohn), fruit juice without pulp (apple/cranberry), clear tea, black coffee (no cream). NO CARBONATED BEVERAGES AND NO ALCOHOL. Shower the morning of the procedure, put on clean clothes, and have clean sheets for your bed to help prevent infection after your procedure. Leave all valuables such as jewelry including rings, piercings, wallets, and purses at home. Wear comfortable, loose-fitting clothing. If you wear glasses or contacts, please bring a case. SPECIAL INSTRUCTIONS: If instructed, bring your first voided urine specimen with you. If you were provided skin preparation to use prior to your procedure, complete this as directed. If you were provided Ensure Pre-Surgery drink, you need to drink this at N/A. This should be consumed quickly (in less than 5 minutes, rather than sipped over time) If you use crutches or a walker, bring them with you. If you have a home CPAP/BIPAP machine, bring it with you. If you were instructed to complete a fleets enema or bowel prep, complete as directed. Bring copy of Living Will/Power of Owner/Operator. Do not smoke or chew. If you use tobacco, quit or at least cut down before surgery. Do not smoke or chew after midnight the day before your surgery. This effects bleeding, infection, healing, and so much more. Do not take any Diet or Herbal Supplements 2 weeks prior to your surgery date. Please notify your physician if there is any change in your physical condition such as a cold, cough, fever, sore throat, or skin irritation near the surgical site. Visitors under the age of 14 are restricted in the Surgery Center. UPON ARRIVAL: Access to [facility] (the [facility]) is located on [address] Pacs Administrator parking is available for your convenience from 5am-5pm- there is a $5.00 charge for this service. Take the elevators directly inside the entrance to the 1st Floor Surgery Lobby. Sign in at the podium located to the left when you get off the elevators. A payment may be expected at the time of service. One visitor may come back to the preoperative area with you. The preoperative staff will be reviewing your medical history, please let them know if you prefer not to have a visitor with you during this time. Once you are ready for surgery, two visitors at a time are permitted in your preoperative room. PATIENT MEDICATION INSTRUCTIONS Please read below carefully for your personalized instructions. Medications: If you are on blood thinner or anticoagulants including aspirin, please confirm with your surgical team on when to stop these medications. Unless instructed differently by your surgical team, stay on all of your medications until your surgery. Pre-Surgery Med Instructions Medication Instructions bupropion HCl (WELLBUTRIN ORAL) Take morning of surgery with a sip of water, no other fluids pantoprazole DR (PROTONIX) 40 mg tablet Take morning of surgery with a sip of water, no other fluids semaglutide (RYBELSUS) 7 mg tablet DO NOT TAKE MORNING OF SURGERY fluticasone propionate (FLONASE NASAL) Take morning of surgery with a sip of water, no other fluids lisinopril (ZESTRIL, PRINIVIL) 10 mg tablet DO NOT TAKE MORNING OF SURGERY metFORMIN (GLUCOPHAGE) 1,000 mg tablet DO NOT TAKE MORNING OF SURGERY pioglitazone (ACTOS) 30 mg tablet DO NOT TAKE MORNING OF SURGERY aspirin, enteric coated (ASPIRIN, ENTERIC COATED) 81 mg EC tablet Follow Prescribers Instructions FISH OIL-DHA-EPA ORAL DO NOT TAKE MORNING OF SURGERY cetirizine (ZYRTEC) 10 mg tablet Take morning of surgery with a sip of water, no other fluids - No diabetic medication the morning of surgery. - Accucheck day of surgery. If you take any medications for erectile dysfunction-Cialis (Tadalafil), Levitra, Staxyn (Vardenafil) Viagra (Sildenenafil please do not take these for 48 hours before surgery. If you have any medication changes between receiving these instructions and your surgery date, please provide this updated information with the nurse who calls you the week day prior to your surgical procedure so we can update your list and provide you with updated instructions for the morning of your procedure. [facility] 04-15-2023 Note HNO ID: [id number] Author: Dena Aragon APRN.CNP Service: Anesthesiology Author Type: Nurse Practitioner Type: Progress Notes Filed: 04/15/2023 4:34 PM Note Text: Summary: dos meds PATIENT MEDICATION INSTRUCTIONS Please read below carefully for your personalized instructions. Medications: If you are on blood thinner or anticoagulants including aspirin, please confirm with your surgical team on when to stop these medications. Unless instructed differently by your surgical team, stay on all of your medications until your surgery. Pre-Surgery Med Instructions Medication Instructions bupropion HCl (WELLBUTRIN ORAL) Take morning of surgery with a sip of water, no other fluids pantoprazole DR (PROTONIX) 40 mg tablet Take morning of surgery with a sip of water, no other fluids semaglutide (RYBELSUS) 7 mg tablet DO NOT TAKE MORNING OF SURGERY fluticasone propionate (FLONASE NASAL) Take morning of surgery with a sip of water, no other fluids lisinopril (ZESTRIL, PRINIVIL) 10 mg tablet DO NOT TAKE MORNING OF SURGERY metFORMIN (GLUCOPHAGE) 1,000 mg tablet DO NOT TAKE MORNING OF SURGERY pioglitazone (ACTOS) 30 mg tablet DO NOT TAKE MORNING OF SURGERY aspirin, enteric coated (ASPIRIN, ENTERIC COATED) 81 mg EC tablet Follow Prescribers Instructions FISH OIL-DHA-EPA ORAL DO NOT TAKE MORNING OF SURGERY cetirizine (ZYRTEC) 10 mg tablet Take morning of surgery with a sip of water, no other fluids - No diabetic medication the morning of surgery. - Accucheck day of surgery. If you take any medications for erectile dysfunction-Cialis (Tadalafil), Levitra, Staxyn (Vardenafil) Viagra (Sildenenafil please do not take these for 48 hours before surgery. If you have any medication changes between receiving these instructions and your surgery date, please provide this updated information with the nurse who calls you the week day prior to your surgical procedure so we can update your list and provide you with updated instructions for the morning of your procedure. [facility] Evaluation + Plan note Future Appointments Appointment Date:09/17/2023 04:30:00 PM Scheduled Provider:TAYA PEREA DO Location:[facility] Appointment Type:PC OV Follow Up Future Scheduled TestsProstate Specific Antigen 05/14/23Lipid Profile 05/14/23Albumin/Creatinine Ratio, Random Urine 05/14/23Complete Metabolic Panel 05/14/23 [facility] Evaluation + Plan note Future Appointments Appointment Date:09/17/2023 04:30:00 PM Scheduled Provider:TAYA PEREA DO Location:[facility] Appointment Type:PC OV Follow Up [facility] Hospital course Narrative No data available for this section [facility] Hospital Discharge instructions No data available for this section [facility] Progress note No data available for this section [facility] Reason for Referral Status Reason Specialty Diagnoses / Procedures Referred By Contact Referred To Contact Pending Review Auto-Generated Referral [facility] Diagnoses Suprascapular mononeuropathy, right Shoulder weakness Numbness and tingling of both upper extremities Chronic pain of both shoulders Procedures CONSULT TO PHYSICAL THERAPY PHYSICAL THERAPY EVALUATION HIGH COMPLEX 45 MINS Samson Johansen [address] [place] [address] [facility] [place] [address] [place] [address] Instructions * Patient Instructions* Samson Johansen - 07/15/2020 3:45 PM EST Lets get the repeat EMG and do some physical therapy. documented in this encounter History of Present Illness * Letymae Samson - 07/15/2020 2:46 PM EST NEW PATIENT EVALUATION Subjective HPI Aurelio Rodriguez is a 60 year old right-handed male who presents for evaluation of bilateral arm weakness / pain. Dr. Villafuerte is the referring physician. Dr. Taya Preea, is the PCP. He fell 01/19 and tripped over a 2/6, fell onto his left shoulder. Was having left shoulder pain. 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 After a few days his right shoulder started having pain. The pain was primarily in the shoulders. Sometimes would have tingling at the elbow similar to how he funny bone feeling is. Over time pain has been getting better. Seems to have more weakness on his right side than left. He mentions weakness worst in the proximal RUE, can't lift his arm up to brush hishair, bringing a drink to his mouth is difficult. He has had pain in the back of his shoulders for years, intermittent, would often be stretching to try to help ( notes this more than he does). also notes that he was having a hard time removing nuts from a new washer, which he says was due to difficulty reaching with right shoulder problem, thought it was more hand issue. He has had diabetes since 2004, last A1c in the 7-8 range. He has occasional numbness in his feet but wasn't a major problem. Prior to all this had not been diagnosed with neuropathy. No history of any surgeries on shoulder / arm / neck, no history of major trauma. He has not done physical therapy. No family history of any neurologic conditions. Medications: Current Outpatient Medications Medication Sig Dispense Refill lisinopril (ZESTRIL, PRINIVIL) 10 mg tablet Take 10 mg by mouth once daily. metFORMIN (GLUCOPHAGE) 1,000 mg tablet Take 1,000 mg by mouth twice daily with meals. pioglitazone (ACTOS) 30 mg tablet Take 30 mg by mouth once daily. aspirin, enteric coated (ASPIRIN, ENTERIC COATED) 81 mg EC tablet Take 81 mg by mouth once daily. exenatide microspheres (BYDUREON) 2 mg/0.65 mL pnij Inject 2 mg subcutaneously one time a week. multivit with minerals/lutein (MULTIVITAMIN 50 PLUS ORAL) Take by mouth once daily. FISH OIL-DHA-EPA ORAL Take by mouth once daily. cetirizine (ZYRTEC) 10 mg tablet Take 10 mg by mouth once daily. No current facility-administered medications for this visit. ROS ROS: His ROS was positive for that mentioned in the HPI. Otherwise a 10-point ROS was completed andwas negative. ALLERGIES Allergen Reactions Erythromycin Other: See Comments Red eyes Past Medical History: PAST MEDICAL HISTORY Diagnosis Date Essential hypertension Seasonal allergies Type 2 diabetes mellitus (HCC) Family History: No family history of neurologic conditions Social History: Social History Tobacco Use Smoking status: Never Smoker Smokeless tobacco: Never Used Substance Use Topics Alcohol use: Never Drug use: Never He drives a [employer] motor Lives with his extended family No tob, etoh, or drugs Objective 07/15/20 1455 BP: 110/67 Pulse: 82 SpO2: 97% Weight: 150 lb (68 kg) Height: 6' (1.829 m) Physical Examination General Appearance: Well appearing, alert, in no acute distress, well-hydrated, well nourished. Head: Normocephalic, no masses, lesions, tenderness or abnormalities Neck: Supple Heart: RRR Peripheral Pulses: Normal Neurologic Examination Mental Status: He is alert. He is fully oriented. Attention is intact. Recent and remote memory is intact. Language shows normal naming, comprehension, fluency, and repetition. Praxis is normal. Affect is appropriate. Cranial Nerves: Pupils are equal and reactive to light. Extraocular movements show full and smooth pursuits. No nystagmus. Visual parisi are full to confrontation. Facial sensation is intact. Facial activation is symmetric. Hearing is intact to conversation. There is no hypomimia. There is no hypoph onia. There is no dysarthria. Tongue is midline. Palate elevates symmetrically. Shoulder shrug is normal. Motor: Muscle bulk is normal. Delt Biceps Triceps Wrist Ext Wrist Flex Finger Flex Finger Ext Finger Abd Finger Add Right 4/5 5/5 5/5 5/5 5/5 5/5 5/5 5/5 5/5 Left 11/09 11/09 11/09 11/09 11/09 11/09 11/09 11/09 11/09 Hip Flex Hip Ext BiFem (knee flex) Quads (knee ext) Gastroc (plantflx) TibAnt (Dorsiflx) TibPost (ank add) Ankle Eversion Ankle Inversion FlxHLong (ToeFlex) ExtHLong (ToeExt) Right 11/09 11/09 11/09 11/09 11/09 11/09 11/09 11/09 11/09 11/09 11/09 Left 11/09 11/09 11/09 11/09 11/09 11/09 11/09 11/09 11/09 11/09 11/09 Neck Flexors 11/09 Neck Extensors 11/09 Supraspinatus empty can - left 4/5, right 0/5 Infraspinatus external rotation of flexed elbow left 11/09, right seems like 0/5 kept positioning himself to use triceps Sensory: Decreased to pinprick throughout both UEs with distal gradient more noticeable around shoulders, no lateralization in hands, normal in feet. Vibration / proprioception normal in toes and hands. Reflex: Biceps, triceps, and brachioradialis is 2+ bilaterally. Patellar reflex 2-3+ bilaterally (mild crossed activation). Ankle jerks absent bilaterally. Toes are downgoing to plantar stimulation. Coordination: Finger to nose is smooth without ataxia. Gait/station: Unremarkable DATA REVIEWED Actual films/image/tracing reviewed and summarized as follows: n/a Old records reviewed and summarized as follows: - Ortho referral records from Dr. Villafuerte - MRI right shoulder 03/30/20: Acromioclavicular arthritis. Minimal tiny undersurface incomplete rim rent [sic] tears at the insertion of the supraspinatus and the infraspinatus. - MRI left shoulder 03/30/20: Suprascapularis tearing. I'm not sure if this is a full thickness or incomplete thickness tearing. It is not a complete tear. There is a shoulder effusion as well as fluid within the subacromial/subdeltoid bursa of the biceps tendon with possible longitudinal split tear to the biceps tendon. - MRI cervical spine 04/22/20: C4-5 mild right foraminal stenosis, C5-6 mod right mild left foraminal narrowing with mild central stenosis, C6-7 mod-severe right and mild left foraminal narrowing with moderate central stenosis - EMG/NCS b/l UE Dr. Zaragoza 04/26/20: Nearly complete right suprascapular nerve lesion... 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 Superimposed nerve entrapments including bilaterally moderately severe carpal tunnel syndrome, worse on the right, and bilateral severe cubital tunnel syndrome, worse on the left. Assessment/Plan Assessment & Plan: Aurelio Rodriguez is a 60 year old right-handed male with a history of DM and HTN who presents with bilateral shoulder pain and right proximal UE weakness. His examination demonstrates weakness of right supraspinatus and infraspinatus (minimal weakness deltoid), normal UE reflexes, and numbness in both UEs more than LEs. Outside EMG a little confusing with concern for suprascapular nerve injury, multiple UE mononeuropathies, and peripheral neuropathy. Based on his exam, I do think a suprascpular nerve injury is possible based on the pattern of weakness. The pattern of numbness is a little unusual for typical peripheral neuropathy since the LEs aremuch less affected, if at all, which could suggest either cervical radiculopathy or mononeuropathy. I reviewed the case with my neuromuscular colleague who recommended repeating the EMG/NCS to clarify the prior findings. I placed this order today. Depending on this result will consider additional imaging or other testing. I explained the importance of physical therapy in regaining strength. Placed order for this today. He should return to see me in 3 months but will be in contact after EMG for additional next steps. Samson Johansen MD [facility] documented in this encounter Assessments Diagnosis Suprascapular mononeuropathy, right- Primary Shoulder weakness Other symptoms referable to shoulder joint Numbness and tingling of both upper extremities Chronic pain of both shoulders Pain in joint, shoulder region Diagnosis Suprascapular mononeuropathy, right Shoulder weakness Other symptoms referable to shoulder joint Numbness and tingling of both upper extremities Chronic pain of both shoulders Pain in joint, shoulder region Carpal tunnel syndrome, right upper limb Other specified mononeuropathies of right upper limb Summary Purpose Family History No Family History Records FoundNo Family History Records Found No data available for this section No Family History Records Found No data available for this section No Family History Records Found Advance Directives No Advanced Directives Records FoundNo Advanced Directives Records FoundNo Advanced Directives Records FoundNo Advanced Directives Records Found Additional Source Comments Source Comments (unrecognize d section and content) In the event this informatio n is protected by the Federal Confidentiality of Alcohol and Drug Abuse Patient Records regulations: The Federal rules restrict any use of the information to criminally investigate or prosecute any alcohol or drug abuse patient.[facility] [place] the event this information is protected by the Federal Confidentiality of Alcohol and Drug Abuse Patient Records regulations: The Federal rules restrict any use of the information to criminally investigate or prosecute any alcohol or drug abuse patient.[facility] [place] the event this information is protected by the Federal Confidentiality of Alcohol and Drug Abuse Patient Records regulations: The Federal rules restrict any use of the information to criminally investigate or prosecute any alcohol or drug abuse patient.[facility] [place] the event this information is protected by the Federal Confidentiality of Alcohol and Drug Abuse Patient Records regulations: The Federal rules restrict any use of the information to criminally investigate or prosecute any alcohol or drug abuse patient.[facility] [place] the event this information is protected by the Federal Confidentiality of Alcohol and Drug Abuse Patient Records regulations: The Federal rules restrict any use of the information to criminally investigate or prosecute any alcohol or drug abuse patient.[facility] [place] Reason for Visit (unrecogniz ed section and content) Reason Comments New Patient left sided weakness Reason Comments Musculoskeletal Problem Status Reason Specialty Diagnoses / Procedures Referred By Contact Referred To Contact Closed [facility] Diagnoses emg/ncv Procedures NEEDLE EMG EA EXTREMTY W/PARASPINL AREA COMPLETE EMG & NCV Samson Johansen [address] [place] [address] [facility] [address] [place] [address] (unrecognized sect ion and content) No Status Records FoundNo Status Records FoundNo Status Records FoundNo Status Records Found INFORMATION SOURCE (unrecogn ized section and content) DATE CREATED AUTHOR 07/25/2020 Jocelynn [facility] DATE CREATED AUTHOR AUTHOR'S ORGANIZ ATION 08/08/2021 [facility] DATE CREATED AUTHOR AUTHOR'S ORGANIZ ATION 05/03/2023 [facility] nt DATE CREATED AUTHOR AUTHOR'S ORGANIZ ATION 05/27/2023 [facility] ([place]) Patient Care team informatio n (unrecognized section and content) Care Team Personnel Name: CHANTE TAYA Position: P4 Physician - Primary Care Member Role: Primary Care Physician Address: Address: [address] [place] [address] Care Team Related Persons Name: HARITHA RODRIGUEZ Address: Home [address] [place], [place] [id number] [place] Care Team Personnel Name: TAYA PEREA Position: P4 Physician - Primary Care Member Role: Primary Care Physician Address: Address: [address] [place] [address] Care Team Related Persons Name: HARITHA RODRIGUEZ Address: Home [address] [place] [phone] [place] FOR RECORDS PERTAINING TO PATIENTS WHO ARE OR HAVE BEEN ENROLLED IN A CHEMICAL DEPENDENCY/SUBSTANCEABUSE PROGRAM, SOME INFORMATION MAY BE OMITTED. This clinical summary was aggregated from multiple sources. Caution should be exercised in using it in the provision of clinical care. This summary normalizes information from multiple sources, and as a consequence, information in this document may materially change the coding, format and clinical context of patient data. In addition, data may be omitted in some cases. CLINICAL DECISIONS SHOULD BE BASED ON THE PRIMARY CLINICAL RECORDS. [facility] [employer] [facility]. provides no warranty or guarantee of the accuracy or completeness of information in this document.
--- NOTE | 2024-05-05 06:22 | HP.PCM_ITS ---
History and Physical Date of Admission: 05/05/24 Chief Complaint: trouble swallowing Details: PERNELL CARDOZA, is a 64 M who presents to the office today for FU with complaints of dysphagia. He reports difficulty taking one pill in particular and occasionally has difficulty with food during a meal, meats mainly. His dentition is very poor and he states that he does not have the money to get them fixed. His last EGD was 04/02/23 with: LA grade B esophagitis w/out bleeding, severe Schatzki ring dilated, and medium-sized hiatal hernia. He had a fall in April 2023 that resulted in an MSSA wound infection, which required aggressive Atb therapy with PICC placement. He sustained leukopenia which necessitated stopping Atb therapy sooner than anticipated. He reports Hgb A1c is in the 7 range and is having difficulty obtaining his GLP-1 meds, s currently is on metformin and pioglitazone. He reports a cough and occasional breakthrough heartburn, reportedly only taking pantoprazole daily. He denies bloating, excessive gas, abdominal pain, diarrhea, constipation, hematochezia and melena. ROS Const Constitutional: Positive for decreased energy; No fatigue, fever(s) or weight change Eyes Eyes: No blurry vision or change in vision ENT ENT: Positive for difficulty swallowing; No abnormal hearing Resp Respiratory: Positive for cough; No change in phlegm color Cardio Cardiology: No chest pain at rest, chest pain with exertion or leg pain with exertion Gastro GI: Positive for difficulty swallowing; No abdominal pain, belching, bloating, change in bowel habits, change in stool character, coffee ground emesis, constipation, cramping, diarrhea, heartburn, feeling full early, excessive flatus, incontinent of stools, Vomiting blood/hematemesis, Blood in stool, loose stools, Black,tarry stools, nausea/dyspepsia, pain with swallowing, vomiting or other Genitourinary Male: No difficulty urinating Musc Musculoskeletal: No abnormal gait, joint pain or leg pain with exertion Skin Skin: No yellowing of the eye or itchy eyes Neuro Neurology: No abnormal gait or abnormal hearing Psych Psychiatric: No anxiety and No depression Endo Endocrine: Positive for cold intolerance; No fatigue or weight change Aller/Imm Allergy/Immunologic: No food intolerance or itchy eyes Rakesh/Lymp Hematologic/Lymphatic: No easy bleeding or easy bruising Exam Const General: cooperative, healthy appearing, comfortable and no acute distress Nutritional Appearance: average body habitus Orientation: alert HENRI Head: normal to inspection Ears: hearing grossly normal bilaterally Nose: external nose normal Face and sinus: normal facial exam and face symmetric Mouth: oral mucosae normal Teeth and gingiva: caries and poor dentition Eyes General: appearance normal, both eyes and all related structures Sclera: sclerae normal Neck Neck: normal visual inspection and full ROM Neck mass: No Chest Chest palpation & inspection: normal inspection of the chest Resp Effort & Inspection: normal respiratory effort, able to speak in complete sentences and symmetric chest movement GI Inspection: normal to inspection Auscultation: normal bowel sounds Skin General: no rashes or lesions noted Neuro General: patient alert, patient awake and patient oriented x3 Cognition: normal cognition Speech: abnormal speech (d/t poor dentition) Gait: normal gait Extrem General: full ROM Psych Appearance: grossly normal Mental Status: mental status grossly normal Mood: congruent mood Affect: normal affect Speech and Movement: speech and movement normal Attitude: cooperative Thought Process: normal Assessment and Plan Assessment and Plan (1) Dysphagia: Status: Chronic Qualifiers: Dysphagia type: esophageal phase Qualified Code(s): R13.19 - Other dysphagia Plan: PERNELL CARDOZA, is a 64 M who presents to the office today for FU with complaints of dysphagia. Last EGD w/balloon dilation performed on 04/02/23. Extensively reviewed swallowing tips: place troublesome pill within a spoonful of applesauce/pudding and take it, tuck his chin and swallow hard, avoid straws. Discussed possibility of silent aspiration of food/fluid into lungs as reason for his cough as well as worsening GERD. He denies shortness of breath and change in phlegm. * CBC,CMP,A1c ordered * EGD w/balloon dilation scheduled * call with results * office follow-up in 1 year, or as needed Orders: Orders CBC W/Diff, Automated Today R13.19 - Other dysphagia Comprehensive Metabolic Profil Today R13.19 - Other dysphagia Hemoglobin A1c Today R13.19 - Other dysphagia I have examined the patient and the H&P has been reviewed. There are no clinical changes since date of exam.
--- NOTE | 2024-05-05 07:00 | EGD_PTH ---
PATHOLOGY RESULTS PATIENT: PERNELL CARDOZA LOC: EN U#:[id number] AGE/SX: 64/M ROOM: RE05/05/[address]: Dr. Marvin Kim DO : 1960 BED: DIS: 05/05/2024 SPEC #: [id number] RECD: 05/05/24 10:26 STATUS: PRAVEEN REKenny #: [id number] VIJAYA: 05/05/24 07:[address]: Marvin Kim DEPT: SURGICAL PATHOLOGY RECD BY: Tameka Haas ENTERED: 05/05/24 11:18 SP TYPE: EGD BIOPSY LILIYA DR: Dr. Duc Perea DO Tissues: Esophagus, NOS Procedures: Special Stain Group I Surgery Specimen Level IV Alcian Blue/PAS (control) HEADER OPERATION: EGD with biopsy, hemostasis and dilation PRE-OP DIAGNOSIS: Dysphagia TISSUE SUBMITTED: Distal esophagus biopsy MICROSCOPIC DIAGNOSIS Distal esophagus, biopsy: Fragments of gastroesophageal mucosa with acute and chronic inflammation. Intestinal metaplasia (goblet cell metaplasia) not identified. Eosinophilic esophagitis. See comment. 05/06/2024 COMMENT Alcian blue/PAS stain with matched control is used in the evaluation of the specimen. Focal increased number of eosinophils (up to 20 high power field) are noted consistent with eosinophilic esophagitis. Correlation with clinical, endoscopic findings and appropriate follow-up are necessary. MICROSCOPIC DESCRIPTION Slides are reviewed. GROSS DESCRIPTION Received in fixative is one container labeled with the patient's name and designated Distal esophagus biopsy. The specimen consists of multiple irregular fragments of light teran soft tissue that in aggregate measure 1.0 x 0.5 x 0.1 cm. The specimen is totally submitted in one cassette. 05/05/2024 TC:3 CPT:09517,67754
--- NOTE | 2024-05-05 07:08 | PCM.PRE.AN2 ---
ASA Classification* ASA Classification ASA Classification: 2 Assessment & Plan Anesthesia* Anesthesia Assessment Anesthesia Assessment: Discussed sedation and/or anesthesia options, risks, benefits, and alternatives with patient/parents/legal guardian/POA. Questions invited. The patient/parents/legal guardian/POA seems to understand and agrees to proceed with anesthesia plan. Reviewed the physical assessment, medical history, allergy history and patient home medications list prior to surgery/procedure/anesthetic and documented any changes. Performed airway and anesthesia risk assessments. Anesthesia Type Anesthesia Type: MAC History Source History Obtained from:: Patient and Chart Anesthesia Focused Assessment* Temperature: 97.0 F Pulse Rate: 75 Blood Pressure: 126/74 Respiratory Rate: 16 Pulse Ox: 100 Airway Assessment Mouth opens: >3 cm Mallampati Score: II Teeth Condition: Intact Focused Labs Anesthesia Preop lab: CBC WBC 5.6 K/mm3 (4.4-11.0) 04/07/24 16:18 RBC 4.78 M/mm3 (4.6-6.2) 04/07/24 16:18 Hgb 13.7 g/dL (13.0-16.5) 04/07/24 16:18 Hct 42.1 % (40-54) 04/07/24 16:18 Plt Count 318 K/mm3 (150-450) 04/07/24 16:18 CHEMISTRY Potassium 4.3 mmol/L (3.5-5.1) 04/07/24 16:18 Sodium 137 mmol/L (136-145) 04/07/24 16:18 BUN 24 mg/dL (7-18) H 04/07/24 16:18 Creatinine 1.25 mg/dL (0.70-1.30) 04/07/24 16:18 Glucose 94 mg/dL (74-106) 04/07/24 16:18 POC Glucose 171 mg/dL (74-106) H 04/02/23 05:53 COAG Pre-Assessment Diagnosis/Proposed Procedure Planned Operative Procedure(s): EGD POSS DILATION Anesthesia History 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 When Was Last Pacemaker Check QUESTION #4 FULL TEXT: You/Your Family Experience fever (hyperthermia) with Anesthesia Last Oral Intake Last Oral intake: Last Oral Intake NPO since 00:00 05/05/24 06:11 Meds taken in AM with sips of No 05/05/24 06:11 water? Meds patient instructed to take am of surgery PONV PONV - hop farm worker: PONV - hop farm worker Female No 05/01/24 12:42 HX of Motion Sickness No 05/01/24 12:42 HX of N/V After Surgery No 05/01/24 12:42 Non-Smoker Yes 05/01/24 12:42 Duration of Surgery greater No 05/01/24 12:42 than 60 minutes Number of Risk Factors 1 05/01/24 12:42 PONV Score Low Risk 05/01/24 12:42 Height & Weight Height & Weight: Anesthesia: Height & Weight Height 6 ft 05/05/24 06:11 Weight: 72.9 kg 05/05/24 06:11 Body Mass Index (BMI) 21.8 05/05/24 06:11 Respiratory Assessment Respiratory Assessment - hop farm worker: Respiratory Tract Infection Hx - hop farm worker Hx Respiratory Tract Infection No 05/01/24 12:42 STOP Sleep Apnea STOP Sleep Apnea - hop farm worker: STOP Sleep Apnea - hop farm worker Hx Hypertension Yes: CONTROLLED WITH MED 05/01/24 12:42 Hx Sleep Apnea No 05/01/24 12:42 CPAP BIPAP Do you snore loudly (louder Yes 05/01/24 12:42 than talking or can be heard Do you often feel tired/ Yes 05/01/24 12:42 fatigued/ sleepy during daytime? Has anyone observed you stop Yes 05/01/24 12:42 breathing during sleep? STOP Results Positive 05/01/24 12:42 QUESTION #5 FULL TEXT : Do you snore loudly (louder than talking or can be heard through closed doors)? 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 Specify any problems Hx of Preganancy in last 3 N/A 05/01/24 12:42 Months Nurse Filling Out Transfusion DSCHRIBER 05/01/24 12:42 & Questions: Date: 05/01/24 05/01/24 12:42 Time: 12:43 05/01/24 12:42 Patient unable to answer at this time (ie. confused, unrespo /Reproduction History /Reproductive History - hop farm worker: /Reproductive Hx- hop farm worker Hx Now No 05/01/24 12:42 Gestational Age (in weeks): EDC: Hx Hx Para Hx Section SAB No 05/01/24 12:42 PFS Medical History MSSA (methicillin susceptible Staphylococcus aureus) infection Loss of hearing Wears glasses Arthritis Back pain Dietary restriction Difficulty swallowing Heartburn Non-smoker Leg cramps Suprascapular nerve injury Right shoulder pain Depression Left shoulder pain Mixed hyperlipidemia HTN (hypertension) Diabetes Home Medications ?Medication ?Instructions ?Recorded ?Last Taken ?Type aspirin 81 mg tablet,delayed 81 mg PO DAILY 10/03/22 04/29/24 History release (Adult Aspirin Regimen) bupropion HCl 150 mg 24 hr tablet, 150 mg PO QAM 10/03/22 04/01/23 History extended release fluticasone propionate 50 1 spray intranasal BID 10/03/22 04/01/23 History mcg/actuation nasal spray,suspension (Flonase Allergy Relief) lisinopril 10 mg tablet 10 mg PO DAILY 10/03/22 Unknown History metformin 1,000 mg tablet 1,000 mg PO BIDWMEAL 10/03/22 04/01/23 History pioglitazone 30 mg tablet 30 mg PO DAILY 10/03/22 04/01/23 History cetirizine 10 mg tablet (Zyrtec) 10 mg PO DAILY 03/28/23 04/01/23 History omega 5-qpf-cpw-fish oil 150 2 cap PO DAILY 03/28/23 04/29/24 History mg-217 mg-840 mg capsule,delayed release (Fish Oil) pantoprazole 40 mg tablet,delayed 40 mg PO Q12H #60 tabs 08/06/23 04/29/24 Rx release glipizide 10 mg tablet, extended 10 mg PO DAILY 05/01/24 Unknown History release 24 hr Allergy/AdvReac Type Severity Reaction Status Date / Time erythromycin base Allergy Intermediate Other Verified 05/05/24 06:04 Family History Mother Diabetes Father Diabetes Heart disease Malignant tumor of prostate Surgical History Hx of elbow surgery History of esophagogastroduodenoscopy (EGD) Hx of vasectomy H/O inguinal hernia repair Social History Smoking Status: Never smoker alcohol intake: never Review of Systems (Anesthesia) ROS Narrative System reviewed and no additional complaints, except as documented.
[2024-05-05 07:35] LABS: Bedside Glucose 124 mg/dL (74-106)
--- NOTE | 2024-05-05 07:41 | PCM.POST.ANE ---
Anesthesia: Postop Eval I Current Vital Signs Temperature: 97.1 F Pulse Rate: 72 Blood Pressure: 106/58 Respiratory Rate: 16 Pulse Ox: 97 Oxygen Delivery Method: Room Air Assessment Airway patent: Yes Spontaneous unlabored respirations: Yes Mental status: Asleep nausea: No Vomiting: No Anesthesia Complication: No Fluid Hydration Crystalloid volume administer (ml): 30 Total IV fluid infused: 30 Progress Note Anesthesia document: Postop Eval 1 completed: Yes
--- NOTE | 2024-05-05 07:43 | OP.CCLET_ITS ---
05/05/2024 Duc Perea [address] [place] [address] Re : Upper GI endoscopy procedure for Aurelio Rodriguez Dear Dr. Perea This procedure was performed on Sunday, May 05, 2024. My impressions and recommendations are as follows: Impressions : - Esophageal mucosal changes consistent with eosinophilic esophagitis. - LA Grade B erosive esophagitis with bleeding. Treated with a heater probe. - Moderate Schatzki ring. Dilated. - Medium-sized hiatal hernia. - No gross lesions in the first portion of the duodenum. - Biopsies were taken with a cold forceps for evaluation of eosinophilic esophagitis. Recommendations : - Discharge patient to home. - Full liquid diet today. - Continue present medications. - Await pathology results. My findings are described in the full procedure note, which is enclosed. If I can be of further assistance, please feel free to contact me at . Sincerely, Marvin Kim, 05/05/2024 7:43:07 AM This report has been signed electronically.
--- NOTE | 2024-05-05 07:43 | OP.EGD_ITS ---
Patient Name: Aurelio Rodriguez Procedure Date: 05/05/2024 7:08 AM Date of : 1960 Age: 64 Procedure: Upper GI endoscopy Indications: Dysphagia Providers: DO Fausto Garcia MD: Duc Perea Medicines: Monitored Anesthesia Care Patient Profile: This is a 64 year old male. Refer to note in patient chart for documentation of history and physical. Patient has symptoms of dysphagia with solids. Complications: No immediate complications. Procedure: Pre-Anesthesia Assessment: - Prior to the procedure, a History and Physical was performed, and patient medications and allergies were reviewed. The patient is competent. The risks and benefits of the procedure and the sedation options and risks were discussed with the patient. All questions were answered and informed consent was obtained. Patient identification and proposed procedure were verified by the physician in the pre-procedure area. Mental Status Examination: alert and oriented. Airway Examination: normal oropharyngeal airway and neck mobility. Respiratory Examination: clear to auscultation. CV Examination: normal. Prophylactic Antibiotics: The patient does not require prophylactic antibiotics. Prior Anticoagulants: The patient has taken no anticoagulant or antiplatelet agents except for NSAID medication. ASA Grade Assessment: II - A patient with mild systemic disease. After reviewing the risks and benefits, the patient was deemed in satisfactory condition to undergo the procedure. The anesthesia plan was to use monitored anesthesia care (MAC). Immediately prior to administration of medications, the patient was re-assessed for adequacy to receive sedatives. The heart rate, respiratory rate, oxygen saturations, blood pressure, adequacy of pulmonary ventilation, and response to care were monitored throughout the procedure. The physical status of the patient was re-assessed after the procedure. After obtaining informed consent, the endoscope was passed under direct vision. Throughout the procedure, the patient's blood pressure, pulse, and oxygen saturations were monitored continuously. The gastroscope was introduced through the mouth, and advanced to the second part of duodenum. The upper GI endoscopy was accomplished without difficulty. The patient tolerated the procedure well. Scope In: 7:21:52 AM Scope Out: 7:29:49 AM Total Procedure Duration Time 0 hours 7 minutes 57 seconds Findings: Mucosal changes including ringed esophagus, feline appearance, longitudinal furrows, small-caliber esophagus and white plaques were found in the middle third of the esophagus and in the lower third of the esophagus. Biopsies were obtained from the proximal and distal esophagus with cold forceps for histology of suspected eosinophilic esophagitis. Verification of patient identification for the specimen was done. Estimated blood loss was minimal. LA Grade B (one or more mucosal breaks greater than 5 mm, not extending between the tops of two mucosal folds) esophagitis with bleeding was found 40 to 41 cm from the incisors. Coagulation for hemostasis using heater probe was successful. Estimated blood loss was minimal. A moderate Schatzki ring was found at the gastroesophageal junction. A guidewire was placed and the scope was withdrawn. Dilation was performed with a Savary dilator with no resistance at 54 Fr. The dilation site was examined and showed moderate mucosal disruption. Estimated blood loss was minimal. A medium-sized hiatal hernia was present. No gross lesions were noted in the first portion of the duodenum. Impression: - Esophageal mucosal changes consistent with eosinophilic esophagitis. - LA Grade B erosive esophagitis with bleeding. Treated with a heater probe. - Moderate Schatzki ring. Dilated. - Medium-sized hiatal hernia. - No gross lesions in the first portion of the duodenum. - Biopsies were taken with a cold forceps for evaluation of eosinophilic esophagitis. Recommendation: - Discharge patient to home. - Full liquid diet today. - Continue present medications. - Await pathology results. Procedure Code(s): --- Professional --- 17716, 59, Esophagogastroduodenoscopy, flexible, transoral; with control of bleeding, any method 26813, Esophagogastroduodenoscopy, flexible, transoral; with insertion of guide wire followed by passage of dilator(s) through esophagus over guide wire 43692, 59,51, Esophagogastroduodenoscopy, flexible, transoral; with biopsy, single or multiple CPT copyright 2021 [employer]. All rights reserved. The codes documented in this report are preliminary and upon production specialist review may be revised to meet current compliance requirements. Marvin Kim DO 05/05/2024 7:43:07 AM This report has been signed electronically. Number of Addenda: 0 Note Initiated On: 05/05/2024 7:08 AM
--- NOTE | 2024-05-05 07:44 | PCM.POSTANE2 ---
Anesthesia Postop Eval I Sum Postop Eval Completion status Anesthesia document: Postop Eval 1 completed: Yes Anesthesia Postop Eval I Summary Anesthesia Postop Eval I Summary: Anesthesia Postop Eval I: Assessment Summary Airway patent Yes 05/05/24 07:42 [email or web address] Spontaneous unlabored Yes 05/05/24 07:42 [email or web address] respirations Mental status Asleep 05/05/24 07:42 [email or web address] nausea No 05/05/24 07:42 [email or web address] Vomiting No 05/05/24 07:42 [email or web address] Anesthesia Postop Eval I: Fluid Summary Crystalloid volume administer 30 05/05/24 07:42 [email or web address] (ml) Colloids volume administered ( ml) Blood Product volume administered (ml) Total IV fluid infused 30 05/05/24 07:42 [email or web address] Anesthesia Postop Eval I: Summary Notes Anesthesia Complication No 05/05/24 07:42 [email or web address] Anesthesia Complication Comment: Post-operative progress note Anesthesia: Postop Eval II Evaluation Mental status: Awake Pain Level: 0 nausea: No Vomiting: No
== END 2024-05-05 08:15 | disposition home or self-care (01) ==
LOC: EN 05:48 → AC 05:49
PROVIDERS: PCP Preventive Medicine Occupational Medicine; Referring Provider Preventive Medicine Occupational Medicine; Visit Provider Internal Medicine Gastroenterology
PROC: 0DJ08ZZ Inspection of Upper Intestinal Tract, Via Natural or Artificial Opening Endoscopic (ICD-10-PCS; CPT 43235; principal; 2024-05-05 06:55)
DX: K22.2 Esophageal obstruction (principal); E11.9 Type 2 diabetes mellitus without complications; K44.9 Diaphragmatic hernia without obstruction or gangrene; Z79.84 Long term (current) use of oral hypoglycemic drugs; K22.10 Ulcer of esophagus without bleeding; Z79.82 Long term (current) use of aspirin; Z79.899 Other long term (current) drug therapy; I10 Essential (primary) hypertension; E78.2 Mixed hyperlipidemia
CPT/HCPCS: 43255; 43239; 43248; 82962; 88305; 88312; A4216; C1769; J2405

== ENCOUNTER → 2024-07-27 | Outpatient (CLI) | payer OTHER, SELFPAY ==
[2024-07-27 17:35] LABS: Cholesterol 149 mg/dL (200); High Density Lipoprotein 53 mg/dL; PSA,Total - Annual Screen 1.31 ng/mL (0.00-4.00); Triglycerides 83 mg/dL; Very Low Density Lipoprotein 17 mg/dL (5-40)
[2024-07-27 21:50] LABS: Microalbumin,Random Urine 6.7 mg/L (NO RANGE EST.); Microalbumin:Creatinine Ratio 4.7 mg/g CRE (<30 mg/g CRE)
== END | disposition home or self-care (01) ==
LOC: MTLAB 16:42
PROVIDERS: PCP Preventive Medicine Occupational Medicine; Referring Provider Preventive Medicine Occupational Medicine; Visit Provider Preventive Medicine Occupational Medicine
DX: Z12.5 Encounter for screening for malignant neoplasm of prostate (principal); E11.9 Type 2 diabetes mellitus without complications; I10 Essential (primary) hypertension; E78.2 Mixed hyperlipidemia
CPT/HCPCS: 36415; 80061; 82043; 82570; 84153; G0103

== ENCOUNTER 2024-10-19 05:24 | Day surgery (SDC) | payer OTHER, SELFPAY ==
[2024-10-19] VITALS (8 sets, daily range): BP systolic 103–123; BP diastolic 55–71; PULSE 66–77; RESP 16–20; TEMP 36.2–36.7; O2SAT 90–100; BMI 21.2
[2024-10-19 06:27] LABS: Bedside Glucose 89 mg/dL (74-106)
--- NOTE | 2024-10-19 06:30 | EGD_PTH ---
PATIENT: PERNELL CARDOZA LOC: EN U#:[id number] AGE/SX: 64/M ROOM: RE10/19/[address]: Dr. Marvin Kim DO : 1960 BED: DIS: 10/19/2024 SPEC #: [id number] RECD: 10/19/24 10:58 STATUS: PRAVEEN REKenny #: [id number] VIJAYA: 10/19/24 06:[address]: Marvin Kim DEPT: SURGICAL PATHOLOGY RECD BY: Tameka Haas ENTERED: 10/19/24 11:27 SP TYPE: EGD BIOPSY OT DR: URIEL GRANADO, INDUSTRIAL CHEMIST-C Tissues: Esophagus, NOS Procedures: Special Stain Group I Surgery Specimen Level IV GMS Stain (control) HEADER OPERATION: EGD with biopsy PRE-OP DIAGNOSIS: Dysphagia TISSUE SUBMITTED: A- Distal esophagus biopsy MICROSCOPIC DIAGNOSIS A. Distal esophagus, biopsy: * Squamous mucosa with reactive changes, acute inflammation, and 12 eosinophils per high power field. * Columnar mucosa negative for goblet cell metaplasia. * PASD stain is negative for fungal organisms. MICROSCOPIC DESCRIPTION Slides are reviewed. All matched controls reacted appropriately. These tests were developed and their performance characteristics determined by [facility]. They may not have been cleared or approved by the U.S. Food and Drug Administration. The FDA has determined that such clearance or approval is not necessary. The above immunohistochemical/dualISH markers are ordered and reviewed by the Pathologist. GROSS DESCRIPTION A. Received in formalin in a container labeled with the patient's name, date of , and distal esophagus biopsy are multiple teran-pink fragments of mucosal tissue measuring 1.5 x 0.8 x 0.3 cm in aggregate. Submitted in toto in A1. [facility] 10/26/2024 CPT:96737, 69073
--- NOTE | 2024-10-19 06:43 | PRE.ANES_ITS ---
ASA Classification* ASA Classification ASA Classification: 2 Assessment & Plan Anesthesia* Anesthesia Assessment Anesthesia Assessment: Discussed sedation and/or anesthesia options, risks, benefits, and alternatives with patient/parents/legal guardian/POA. Questions invited. The patient/parents/legal guardian/POA seems to understand and agrees to proceed with anesthesia plan. Reviewed the physical assessment, medical history, allergy history and patient home medications list prior to surgery/procedure/anesthetic and documented any changes. Performed airway and anesthesia risk assessments. Anesthesia Type Anesthesia Type: MAC Anesthesia Focused Assessment* Temperature: 97.1 F Pulse Rate: 66 Blood Pressure: 123/71 Respiratory Rate: 16 Pulse Ox: 100 Airway Assessment Mouth opens: >3 cm Mallampati Score: II Focused Labs Anesthesia Preop lab: CBC WBC 5.6 K/mm3 (4.4-11.0) 04/07/24 16:18 04/07/24 RBC 4.78 M/mm3 (4.6-6.2) 04/07/24 16:18 04/07/24 Hgb 13.7 g/dL (13.0-16.5) 04/07/24 16:18 04/07/24 Hct 42.1 % (40-54) 04/07/24 16:18 04/07/24 Plt Count 318 K/mm3 (150-450) 04/07/24 16:18 04/07/24 CHEMISTRY Potassium 4.3 mmol/L (3.5-5.1) 04/07/24 16:18 04/07/24 Sodium 137 mmol/L (136-145) 04/07/24 16:18 04/07/24 BUN 24 mg/dL (7-18) H 04/07/24 16:18 04/07/24 Creatinine 1.25 mg/dL (0.70-1.30) 04/07/24 16:18 04/07/24 Glucose 94 mg/dL (74-106) 04/07/24 16:18 04/07/24 POC Glucose 89 mg/dL (74-106) 10/19/24 05:52 10/19/24 COAG Pre-Assessment Diagnosis/Proposed Procedure Planned Operative Procedure(s): EGD Anesthesia History 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 When Was Last Pacemaker Check QUESTION #4 FULL TEXT: You/Your Family Experience fever (hyperthermia) with Anesthesia Last Oral Intake Last Oral intake: Last Oral Intake NPO since 21:30 10/19/24 05:56 Meds taken in AM with sips of No 10/19/24 05:56 water? Meds patient instructed to take am of surgery PONV PONV - social studies teacher: PONV - social studies teacher Female No 10/13/24 13:55 HX of Motion Sickness No 10/13/24 13:55 HX of N/V After Surgery No 10/13/24 13:55 Non-Smoker Yes 10/13/24 13:55 Duration of Surgery greater No 10/13/24 13:55 than 60 minutes Number of Risk Factors 1 10/13/24 13:55 PONV Score Low Risk 10/13/24 13:55 Height & Weight Height & Weight: Anesthesia: Height & Weight Height 6 ft 10/19/24 05:56 Weight: 70.851 kg 10/19/24 05:56 Body Mass Index (BMI) 21.2 10/19/24 05:56 Respiratory Assessment Respiratory Assessment - social studies teacher: Respiratory Tract Infection Hx - social studies teacher Hx Respiratory Tract Infection Yes: CURRENT CONGESTION/ 10/13/24 13:55 COUGH FOR OVER A WEEK STOP Sleep Apnea STOP Sleep Apnea - social studies teacher: STOP Sleep Apnea - social studies teacher Hx Hypertension Yes: CONTROLLED WITH MED 10/13/24 13:55 Hx Sleep Apnea No 10/13/24 13:55 CPAP BIPAP Do you snore loudly (louder No 10/13/24 13:55 than talking or can be heard Do you often feel tired/ No 10/13/24 13:55 fatigued/ sleepy during daytime? Has anyone observed you stop No 10/13/24 13:55 breathing during sleep? STOP Results Negative 10/13/24 13:55 QUESTION #5 FULL TEXT : Do you snore loudly (louder than talking or can be heard through closed doors)? Tobacco Use History Tobacco Use History - social studies teacher: Tobacco Use History - social studies teacher Tobacco Use Smoking Status Never smoker 10/13/24 13:55 Hx Tobacco Use No 10/13/24 13:55 Years Smoking Packs Smoked per Day Smoking Cessation Date was within the last 15 years Hx Smoking Cessation Date Hx Smoking Cessation Counseling Hematologic Medial History Hematologic Hx - social studies teacher: Hematologic Medical Hx - rn med surg Hx of Blood Transfusion No 10/13/24 13:55 Hx of Transfusion in last 3 No 10/13/24 13:55 Months Date of Last Transfusion (if within last 3 months) Ever experience any problems No 10/13/24 13:55 with transfusion(s)? Specify any problems Hx of Preganancy in last 3 N/A 10/13/24 13:55 Months Nurse Filling Out Transfusion NBUCHER 10/13/24 13:55 & Questions: Date: 10/13/24 10/13/24 13:55 Time: 13:57 10/13/24 13:55 Patient unable to answer at this time (ie. confused, unrespo /Reproduction History /Reproductive History - social studies teacher: /Reproductive Hx- social studies teacher Hx Now Gestational Age (in weeks): EDC: Hx Hx Para Hx Section SAB No 10/13/24 13:55 PFSH Medical History MSSA (methicillin susceptible Staphylococcus aureus) infection Loss of hearing Wears glasses Arthritis Back pain Dietary restriction Difficulty swallowing Heartburn Non-smoker Leg cramps Suprascapular nerve injury Right shoulder pain Depression Left shoulder pain Mixed hyperlipidemia HTN (hypertension) Diabetes Home Medications ?Medication ?Instructions ?Recorded ?Last Taken ?Type aspirin 81 mg tablet,delayed 81 mg PO DAILY 10/03/22 0 10/13/24 History release (Adult Aspirin Regimen) bupropion HCl 150 mg 24 hr tablet, 150 mg PO QAM 10/0310/18/24 History extended release fluticasone propionate 50 1 spray intranasal BID 10/0310/16/24 History mcg/actuation nasal spray,suspension (Flonase Allergy Relief) lisinopril 10 mg tablet 10 mg PO DAILY 10/03/2210/06 History metformin 1,000 mg tablet 1,000 mg PO BIDWMEAL 3 10/18/24 History pioglitazone 30 mg tablet 30 mg PO DAILY 10/03/2210/06 History cetirizine 10 mg tablet (Zyrtec) 10 mg PO DAILY 10/18/24 History omega 3-kem-dqf-fish oil 150 2 cap PO DAILY 03/28/23 0 10/13/24 History mg-217 mg-840 mg capsule,delayed release (Fish Oil) pantoprazole 40 mg tablet,delayed 40 mg PO Q12H #60 ta bs 08/06/23 10/13/24 Rx release glipizide 10 mg tablet, extended 10 mg PO DAILY 10/18/24 History release 24 hr Allergy/AdvReac Type Severity Reaction Status Date / Time erythromycin base Allergy Intermediate Other Verified 10/19/24 05:48 Family History Mother Diabetes Father Diabetes Heart disease Malignant tumor of prostate Surgical History Hx of elbow surgery History of esophagogastroduodenoscopy (EGD) Hx of vasectomy H/O inguinal hernia repair Social History Smoking Status: Never smoker alcohol intake: never Review of Systems (Anesthesia) ROS Narrative System reviewed and no additional complaints, except as documented.
--- NOTE | 2024-10-19 07:05 | PCM.HP.STD ---
HPI - General General Date of Admission: 10/19/24 Date of Service: 10/19/24 Chief Complaint: dysphagia HPI Narrative PERNELL CARDOZA, is a 64 M who presents 64 M who presents to the office today for FU with complaints of dysphagia. He reports difficulty taking one pill in particular and occasionally has difficulty with food during a meal, meats mainly. His dentition is very poor and he states that he does not have the money to get them fixed. His last EGD was 04/02/23 with: LA grade B esophagitis w/out bleeding, severe Schatzki ring dilated, and medium-sized hiatal hernia. He had a fall in April 2023 that resulted in an MSSA wound infection, which required aggressive Atb therapy with PICC placement. He sustained leukopenia which necessitated stopping Atb therapy sooner than anticipated. He reports Hgb A1c is in the 7 range and is having difficulty obtaining his GLP-1 meds, s currently is on metformin and pioglitazone. He reports a cough and occasional breakthrough heartburn, reportedly only taking pantoprazole daily. He denies bloating, excessive gas, abdominal pain, diarrhea, constipation, hematochezia and melena. [facility] Medical History MSSA (methicillin susceptible Staphylococcus aureus) infection Loss of hearing Wears glasses Arthritis Back pain Dietary restriction Difficulty swallowing Heartburn Non-smoker Leg cramps Suprascapular nerve injury Right shoulder pain Depression Left shoulder pain Mixed hyperlipidemia HTN (hypertension) Diabetes Home Medications ?Medication ?Instructions ?Recorded ?Last Taken ?Type aspirin 81 mg tablet,delayed 81 mg PO DAILY 10/03/22 10/13/24 History release (Adult Aspirin Regimen) bupropion HCl 150 mg 24 hr tablet, 150 mg PO QAM 10/03/22 10/18/24 History extended release fluticasone propionate 50 1 spray intranasal BID 10/03/22 10/16/24 History mcg/actuation nasal spray,suspension (Flonase Allergy Relief) lisinopril 10 mg tablet 10 mg PO DAILY 10/03/22 10/18/24 History metformin 1,000 mg tablet 1,000 mg PO BIDWMEAL 10/03/22 10/18/24 History pioglitazone 30 mg tablet 30 mg PO DAILY 10/03/22 10/18/24 History cetirizine 10 mg tablet (Zyrtec) 10 mg PO DAILY 03/28/23 10/18/24 History omega 6-wmv-cjw-fish oil 150 2 cap PO DAILY 03/28/23 10/13/24 History mg-217 mg-840 mg capsule,delayed release (Fish Oil) pantoprazole 40 mg tablet,delayed 40 mg PO Q12H #60 tabs 08/06/23 10/13/24 Rx release glipizide 10 mg tablet, extended 10 mg PO DAILY 05/01/24 10/18/24 History release 24 hr Allergy/AdvReac Type Severity Reaction Status Date / Time erythromycin base Allergy Intermediate Other Verified 10/19/24 05:48 Family History Mother Diabetes Father Diabetes Heart disease Malignant tumor of prostate Surgical History Hx of elbow surgery History of esophagogastroduodenoscopy (EGD) Hx of vasectomy H/O inguinal hernia repair Social History Smoking Status: Never smoker alcohol intake: never ROS Constitutional Constitutional: Denies fatigue, fever(s), poor appetite, weight gain or weight loss Gastrointestinal Gastrointestinal: Denies belching, bloating, change in bowel habits, change in stool character, chewing difficulty, coffee ground emesis, constipation, cramping, diarrhea, dyspepsia, dysphagia, early satiety, excessive flatus, fecal incontinence, heartburn, hematemesis, hematochezia, hemorrhoids, loose stools, melena, nausea, odynophagia, rectal bleeding, tenesmus, vomiting or weight changes Vital Signs Vital Signs Vital Signs: 10/19/24 05:55 10/19/24 05:56 10/19/24 06:44 Temperature 97.1 F L 97.1 F L Temperature Source Temporal Pulse Rate 66 66 Respiratory Rate 16 16 Respiratory Pattern Normal Blood Pressure 123/71 H 123/71 H Blood Pressure Mean 88 Blood Pressure Source Monitor Blood Pressure Position Semi-Fowlers Blood Pressure Location Left Arm Pulse Ox 100 100 Oxygen Delivery Method Room Air Weight Weight: 156 lb 3.2 oz Body Mass Index (BMI) 21.2 Physical Exam Const alert, oriented x3, no apparent distress and healthy appearing General Appearance: cooperative GI normal to inspection, nondistended, normoactive bowel sounds, soft to palpation, non-tender and non-distended Percussion: normal to percussion Rectal Exam: deferred Results Lab / Micro Data Labs: Laboratory Results - last 24 hr 10/19/24 05:52: POC Glucose 89 Assessment & Plan Assessment/Plan (1) Dysphagia: QUALIFIERS: Dysphagia type: esophageal phase Qualified Code(s): R13.19 - Other dysphagia PLAN: Assessment and Plan Assessment and Plan (1) Dysphagia: Status: Chronic Qualifiers: Dysphagia type: esophageal phase Qualified Code(s): R13.19 - Other dysphagia Plan: PERNELL CARDOZA, is a 64 M who presents to the office today for FU with complaints of dysphagia. Last EGD w/balloon dilation performed on 04/02/23. Extensively reviewed swallowing tips: place troublesome pill within a spoonful of applesauce/pudding and take it, tuck his chin and swallow hard, avoid straws. Discussed possibility of silent aspiration of food/fluid into lungs as reason for his cough as well as worsening GERD. He denies shortness of breath and change in phlegm. CBC,CMP,A1c ordered EGD w/balloon dilation scheduled call with results office follow-up in 1 year, or as needed Orders: Orders CBC W/Diff, Automated Today R13.19 - Other dysphagia Comprehensive Metabolic Profil Today R13.19 - Other dysphagia Hemoglobin A1c Today R13.19 - Other dysphagia I have examined the patient and the H&P has been reviewed. There are no clinical changes since date of exam.
--- NOTE | 2024-10-19 07:22 | OP.CCLET_ITS ---
10/19/2024 Duc Perea [address] [place] [address] Re : Upper GI endoscopy procedure for Aurelio Rodriguez Dear Dr. Perea This procedure was performed on Saturday, October 19, 2024. My impressions and recommendations are as follows: Impressions : - Moderate Schatzki ring. Biopsied. - Medium-sized hiatal hernia. - No gross lesions in the second portion of the duodenum. Recommendations : - Discharge patient to home. - Resume previous diet. - Continue present medications. - Await pathology results. My findings are described in the full procedure note, which is enclosed. If I can be of further assistance, please feel free to contact me at . Sincerely, Marvin Kim, 10/19/2024 7:22:16 AM This report has been signed electronically.
--- NOTE | 2024-10-19 07:22 | OP.EGD_ITS ---
Patient Name: Aurelio Rodriguez Procedure Date: 10/19/2024 6:38 AM Date of : 1960 Age: 64 Procedure: Upper GI endoscopy Indications: Dysphagia Providers: Marvin Kim DO Referring MD: Duc Perea Medicines: Monitored Anesthesia Care Patient Profile: This is a 64 year old male. Refer to note in patient chart for documentation of history and physical. Patient has symptoms of dysphagia with solids. Complications: No immediate complications. Procedure: Pre-Anesthesia Assessment: - Prior to the procedure, a History and Physical was performed, and patient medications and allergies were reviewed. The patient is competent. The risks and benefits of the procedure and the sedation options and risks were discussed with the patient. All questions were answered and informed consent was obtained. Patient identification and proposed procedure were verified by the physician in the pre-procedure area. Mental Status Examination: alert and oriented. Airway Examination: normal oropharyngeal airway and neck mobility. Respiratory Examination: clear to auscultation. CV Examination: normal. Prophylactic Antibiotics: The patient does not require prophylactic antibiotics. Prior Anticoagulants: The patient has taken no anticoagulant or antiplatelet agents except for NSAID medication. ASA Grade Assessment: II - A patient with mild systemic disease. After reviewing the risks and benefits, the patient was deemed in satisfactory condition to undergo the procedure. The anesthesia plan was to use monitored anesthesia care (MAC). Immediately prior to administration of medications, the patient was re-assessed for adequacy to receive sedatives. The heart rate, respiratory rate, oxygen saturations, blood pressure, adequacy of pulmonary ventilation, and response to care were monitored throughout the procedure. The physical status of the patient was re-assessed after the procedure. After obtaining informed consent, the endoscope was passed under direct vision. Throughout the procedure, the patient's blood pressure, pulse, and oxygen saturations were monitored continuously. The Endoscope was introduced through the mouth, and advanced to the second part of duodenum. The upper GI endoscopy was accomplished without difficulty. The patient tolerated the procedure well. Scope In: 7:15:16 AM Scope Out: 7:19:08 AM Total Procedure Duration Time 0 hours 3 minutes 52 seconds Findings: A moderate Schatzki ring was found at the gastroesophageal junction. Biopsies were taken with a cold forceps for histology. Verification of patient identification for the specimen was done. Estimated blood loss was minimal. A medium-sized hiatal hernia was present. No gross lesions were noted in the second portion of the duodenum. Impression: - Moderate Schatzki ring. Biopsied. - Medium-sized hiatal hernia. - No gross lesions in the second portion of the duodenum. Recommendation: - Discharge patient to home. - Resume previous diet. - Continue present medications. - Await pathology results. Procedure Code(s): --- Professional --- 83748, Esophagogastroduodenoscopy, flexible, transoral; with biopsy, single or multiple CPT copyright 2021 [employer]. All rights reserved. The codes documented in this report are preliminary and upon remote medical coder review may be revised to meet current compliance requirements. Marvin Kim DO 10/19/2024 7:22:16 AM This report has been signed electronically. Number of Addenda: 0 Note Initiated On: 10/19/2024 6:38 AM
--- NOTE | 2024-10-19 07:32 | PCM.POST.ANE ---
Anesthesia: Postop Eval I Current Vital Signs Temperature: 97.4 F Pulse Rate: 77 Blood Pressure: 113/55 Respiratory Rate: 16 Pulse Ox: 96 Oxygen Delivery Method: Room Air Assessment Airway patent: Yes Spontaneous unlabored respirations: Yes Mental status: Awake and Calm nausea: No Vomiting: No Anesthesia Complication: No Fluid Hydration Crystalloid volume administer (ml): 30 Total IV fluid infused: 30 Progress Note Anesthesia document: Postop Eval 1 completed: Yes
--- NOTE | 2024-10-19 09:08 | PCM.POSTANE2 ---
Anesthesia Postop Eval I Sum Postop Eval Completion status Anesthesia document: Postop Eval 1 completed: Yes Anesthesia Postop Eval I Summary Anesthesia Postop Eval I Summary: Anesthesia Postop Eval I: Assessment Summary Airway patent Yes 10/19/24 07:33 [email or web address] Spontaneous unlabored Yes 10/19/24 07:33 [email or web address] respirations Mental status Awake,Calm 10/19/24 07:33 [email or web address] nausea No 10/19/24 07:33 [email or web address] Vomiting No 10/19/24 07:33 [email or web address] Anesthesia Postop Eval I: Fluid Summary Crystalloid volume administer 30 10/19/24 07:33 [email or web address] (ml) Colloids volume administered ( ml) Blood Product volume administered (ml) Total IV fluid infused 30 10/19/24 07:33 [email or web address] Anesthesia Postop Eval I: Summary Notes Anesthesia Complication No 10/19/24 07:33 [email or web address] Anesthesia Complication Comment: Post-operative progress note Anesthesia: Postop Eval II Evaluation Mental status: Awake Pain Level: 0 nausea: No Vomiting: No
== END 2024-10-19 08:03 | disposition home or self-care (01) ==
LOC: EN 05:25 → AC 05:27
PROVIDERS: PCP Nurse Practitioner Family; Referring Provider Nurse Practitioner Family; Visit Provider Internal Medicine Gastroenterology
PROC: 0DJ08ZZ Inspection of Upper Intestinal Tract, Via Natural or Artificial Opening Endoscopic (ICD-10-PCS; CPT 43235; principal; 2024-10-19 06:25)
DX: K22.2 Esophageal obstruction (principal); E11.9 Type 2 diabetes mellitus without complications; K20.90 Esophagitis, unspecified without bleeding; R13.19 Other dysphagia; K44.9 Diaphragmatic hernia without obstruction or gangrene; I10 Essential (primary) hypertension; E78.2 Mixed hyperlipidemia; F32.A Depression, unspecified; Z79.82 Long term (current) use of aspirin; Z79.84 Long term (current) use of oral hypoglycemic drugs; Z79.899 Other long term (current) drug therapy
CPT/HCPCS: 43239; 82962; 88305; 88312; A4216; J2405